=== PATIENT | female | born 2005 | race Two or more races ===

== ENCOUNTER 2024-02-27 01:42 | Emergency (ER) | payer MEDICAID, SELFPAY ==
[2024-02-27 06:10] LABS: Appearance Urine Clear; Color Urine Yellow; Glucose Urine UA Negative (Negative); Leukocyte Esterase Urine Negative (Negative); Nitrite Urine Negative (Negative); PH 7.5 (5.0-9.0); Specific Gravity - Urine >= 1.030 (1.005-1.025); UPreg QC Valid YES; Urine Blood Negative (Negative); Urine Ketones Trace mg/dL (Negative); Urine Pregnancy NEGATIVE (NEGATIVE); Urine Protein Negative (Neg-Trace)
== END 2024-02-27 03:54 | disposition home or self-care (01) ==
PROVIDERS: Emergency Provider Emergency Medicine
DX: R11.2 Nausea with vomiting, unspecified (principal); Z79.899 Other long term (current) drug therapy
CPT/HCPCS: 81003; 81025; 99283

== ENCOUNTER 2024-05-25 02:17 | Emergency (ER) | payer MEDICAID, SELFPAY ==
[2024-05-25] VITALS (7 sets, daily range): BP systolic 111–128; BP diastolic 55–76; PULSE 111–116; RESP 16–24; TEMP 36.4–36.8; O2SAT 93–97; BMI 47.5
--- NOTE | 2024-05-25 | ECG_ITS ---
Test Reason : CHEST PAIN Blood Pressure : / mmHG Vent. Rate : 094 BPM Atrial Rate : 094 BPM P-R Int : 150 ms QRS Dur : 080 ms QT Int : 348 ms P-R-T Axes : 057 025 026 degrees QTc Int : 435 ms Normal sinus rhythm Normal ECG No previous ECGs available Referred By: Generic ED Physician Electronically Signed By:Sam Caicedo
--- NOTE | 2024-05-25 02:39 | ED_ITS ---
HPI - SOB/Dyspnea General Chief Complaint: Upper Respiratory Symptoms Stated Complaint: SOB, Chest pain Time Seen by Provider: 05/25/24 02:31 Source: patient Mode of arrival: ambulatory Limitations: no limitations History of Present Illness ED Provider: Dr. Madyson Quiles HPI Narrative: Patient comes to the emergency room complaining of wheezing, shortness of breath, cough and congestion for about a week. Patient states that a week ago she went to [facility] with an asthma exacerbation, they prescribed her an albuterol pump . Patient states that she has not taking any steroids, unclear if they were prescribed? . Patient states that yesterday she had a faintly positive urine test, patient states that she is 26 days late for her menstrual. If patient is , this would be her 1st . Related Data Previous Rx's ?Medication ?Instructions ?Recorded albuterol sulfate 90 mcg/actuation 2 puff inhalation Q4-6H PRN 05/25/24 aerosol inhaler shortness of breath or wheezing #8.5 grams prednisone 50 mg tablet 50 mg PO DAILY #5 tabs 05/25/24 Allergies Allergy/AdvReac Type Severity Reaction Status Date / Time No Known Allergies Allergy Verified 05/25/24 02:23 Review of Systems 2 Review of Systems: Constitutional : No Weight loss, No Fever, No Chills, No Night Sweats, No Fatigue, No Malaise ENT/Mouth : No Hearing loss, No Ear Pain, No Nasal Congestion, No Sinus Pain, No Hoarseness, No sore throat, No Rhinorrhea, No Swallowing Difficulty Eyes: No Eye Pain, No Swelling, No Redness, No Foreign Body, No Discharge, No Vision Changes Cardiovascular : No Chest Pain, No SOB, No Dyspnea on Exertion, No Orthopnea, No Edema, No Palpitations Respiratory : Complaining of cough, wheezing, shortness of breath Gastrointestinal : No Nausea, No Vomiting, No Diarrhea, No Constipation, No abdominal Pain, No Hematochezia, No Melena Genitourinary : no irregular bleeding, No Dysuria, No Urinary Frequency, No Hematuria, No Urinary Incontinence, No Urgency, No Flank Pain, No Urinary Flow Changes, No Hesitancy Musculoskeletal : No joint pain, No Myalgias, No Joint Swelling Skin : No Skin Lesions, No rash Neuro : No Weakness, No Numbness, No Paresthesias, No Loss of Consciousness, No Dizziness, No Headache Psych : No Anxiety/Panic, No Depression, No SI/HI/AH/VH, No Social Issues, Heme/Lymph: No Bruising, No Bleeding,No Lymphadenopathy Endocrine : No Polyuria, No Polydipsia, No Temperature Intolerance [facility] Past Medical History Medical History (Updated 05/25/24 @ 06:16 by Madyson Quiles MD) Asthma Social History Social History Smoked in Last 30 Days: No Use of substances other than those prescribed or required for medical reasons: No Advance Directives: No Advance Directives Information Provided: Yes Do you have a plan to hurt others: No Plan Physical Exam 2 Vital Signs: Vital Signs: Last Vital Signs Temp 98.2 F 05/25/24 04:31 Pulse 111 H 05/25/24 05:09 Resp 20 05/25/24 05:09 BP 111/55 L 05/25/24 04:31 Pulse Ox 95 05/25/24 04:31 O2 Del Method Room Air 05/25/24 04:31 BMI result Body Mass Index 47.5 Const: Other: Appearance: Alert. Oriented X3. No acute distress. Eyes: Pupils equal, round and reactive to light. ENT: Pharynx normal. Neck: Normal inspection. Neck supple. No lymph nodes noted. No crepitus CVS: Normal heart rate and rhythm. Pulses normal. Normal S1 and S2 Respiratory: Speaking in 2-3 word sentences, bilateral wheezing, tachypneic, decreased air movement, oxygen saturation 95% on room air Abdomen: Soft and nontender. No rigidity. No distention. Skin: Skin warm and dry. Normal skin color. Normal skin turgor. Extremities: No lower extremity edema. No Lacerations. No Rash Neuro: Oriented X 3. No motor deficit. No sensory deficit. Moving all extremities. No slurred speech. CN 2 through 12 grossly intact Psych: calm, cooperative, normal affect Course Course Course Narrative: Patient receiving a nebulization treatment, IV Solu-Medrol and magnesium All of patient's labs pending Medications Administered Discontinued Medications Generic Name Dose Route Start Last Admin Trade Name Freq PRN Reason Stop Dose Admin Albuterol Sulfate 7.5 mg/ 10 mg 05/25/24 02:45 05/25/24 02:50 Albuterol Sulfate 2.5 mg INHALE 05/25/24 02:46 10 mg ONCE ONE Administration Albuterol Sulfate 5 mg/ 7.5 mg 05/25/24 05:03 05/25/24 05:09 Albuterol Sulfate 2.5 mg INHALE 05/25/24 05:04 7.5 mg ONCE ONE Administration Magnesium Sulfate 2 gm in 50 mls @ 25 mls/hr 05/25/24 02:38 05/25/24 03:28 Magnesium Sulfate/H2o IV 05/25/24 04:37 Infused ONCE ONE Infusion Methylprednisolone Sodium Succinate 125 mg 05/25/24 02:38 05/25/24 02:57 Methylprednisolone Sod Succ 125 Mg/2 Ml Vial IVPUSH 05/25/24 02:39 125 mg ONCE ONE Administration Medical Decision Making Medical Decision Making [facility] Narrative: My interpretation of labs: Patient's white blood cell count 11.8, patient noted to be anemic. Patient will follow-up with PCP. Chemistry within normal limits. Also, I discussed with the patient that her beta hCG quant was negative. Serology negative for influenza RSV and COVID Patient was ambulated around the emergency room, oxygen saturation minimum 93%, then improved to 98% at rest. Patient states that she feels well to go home. On physical exam, no longer wheezing. Differential Diagnosis Differential Diagnoses: The differential diagnosis associated with the presentation includes Admission/Observation Consideration of admission/observation: Escalation of care including admission/observation considered (Given patient's initial presentation, observation was considered) Lab Data [facility] Lab Attestation statement: I reviewed the patient's lab results. 05/25/24 02:54 05/25/24 02:54 Labs: Lab Results 05/25/24 05/25/24 Range/Units 02:54 02:57 WBC 11.8 H (4.8-10.8) X10*3/uL RBC 4.92 (4.20-5.50) X10*6/uL Hgb 9.2 L (12.0-16.0) g/dl Hct 31.2 L (37.0-47.0) % MCV 63.4 L (80.0-98.0) fL MCH 18.7 L (27.0-33.0) pg MCHC 29.5 L (31.0-35.0) g/dl RDW 20.6 H (11.0-16.0) % Plt Count 425 H (160-400) X10*3/uL MPV 9.8 (9.4-12.3) fL Immature Gran % (Auto) 0.6 H (0.0-0.4) % Neut % (Auto) 61.1 (45-73) % Lymph % (Auto) 22.8 (20-40) % [place] % (Auto) 7.6 (2-11) % Eos % (Auto) 7.4 H (0-4) % Baso % (Auto) 0.5 (0-2) % Lymph # (Auto) 2.7 (1.2-4.9) X10*3/uL [place] # (Auto) 0.9 (0.1-1.2) X10*3/uL Eos # (Auto) 0.9 H (0.0-0.4) X10*3/uL Baso # (Auto) 0.1 (0.0-0.2) X10*3/uL Abs Immat Gran (auto) 0.07 H (0.00-0.03) X10*3/uL Absolute Neuts (auto) 7.2 (2.0-8.3) x10*3/uL Absolute Nucleated RBC 0.000 (0.0-0.012) X10*3/uL Nucleated RBC % (auto) 0.0 (0.0-0.2) /100WBC Sodium 139 (135-145) mmol/L Potassium 4.9 (3.3-5.1) mmol/L Chloride 104 (96-108) mmol/L Carbon Dioxide 25 (22-29) mmol/L Anion Gap 15 (12-20) BUN 10 (9-16) mg/dL Creatinine 0.76 (0.5-1.4) mg/dL Estim Creat Clear Calc 160.3 Estimated GFR > 60 Random Glucose 112 (60-115) mg/dL Calcium 9.0 (8.4-10.2) mg/dL Beta HCG, Quant < 2 mIU/mL Influenza Type A (PCR) NEGATIVE (Negative) Influenza Type B (PCR) NEGATIVE (Negative) RSV RNA Qual (PCR) NEGATIVE (Negative) SARS-CoV-2 RNA (RT-PCR) NEGATIVE (Negative) Discharge Plan Discharge Clinical Impression: Asthma, Bronchitis Patient Disposition: Home, Self-Care Instructions: Asthma (ED) Additional Instructions: Please follow-up with your primary care physician tomorrow. If you have any worsening or new symptoms, please return to the emergency room or call 911 Prescriptions: New prednisone 50 mg tablet 50 mg PO DAILY Qty: 5 0RF albuterol sulfate 90 mcg/actuation HFA aerosol inhaler 2 puff inhalation Q4-6H PRN (Reason: shortness of breath or wheezing) Qty: 8.5 0RF Print Language: Surinamese
[2024-05-25] MEDS: Albuterol Sulfate 7.5 MG, Albuterol Sulfate (0.083%) 2.5 MG 10 MG INHALE (02:50)
[2024-05-25] MEDS: methylPREDNISolone Sod Succ 125 MG/2 ML VIAL IVPUSH (02:57)
[2024-05-25] MEDS: Magnesium Sulfate/H2O 2 GM/50 ML PIGGYBACK IV (02:57)
[2024-05-25 02:58] LABS: MANUAL DIFF FLAG NO
[2024-05-25 02:59] LABS: Basophils Absolute Auto 0.1 X10*3/uL (0.0-0.2); Basophils Percent Auto 0.5 % (0-2); Eosinophils Absolute Auto 0.9 X10*3/uL (0.0-0.4); Eosinophils Percent Auto 7.4 % (0-4); Hematocrit 31.2 % (37.0-47.0); Hemoglobin 9.2 g/dl (12.0-16.0); Imm Gran Abs Auto 0.07 X10*3/uL (0.00-0.03); Imm Gran Pct Auto 0.6 % (0.0-0.4); Lymphocytes Absolute Auto 2.7 X10*3/uL (1.2-4.9); Lymphocytes Percent Auto 22.8 % (20-40); Mean Corpuscular HGB Conc 29.5 g/dl (31.0-35.0); Mean Corpuscular Hemoglobin 18.7 pg (27.0-33.0); Mean Platelet Volume 9.8 fL (9.4-12.3); Monocytes Absolute Auto 0.9 X10*3/uL (0.1-1.2); Monocytes Percent Auto 7.6 % (2-11); Neutrophils Absolute Auto 7.2 x10*3/uL (2.0-8.3); Neutrophils Percent Auto 61.1 % (45-73); Platelet Count 425 X10*3/uL (160-400); Red Blood Count 4.92 X10*6/uL (4.20-5.50); Red Cell Distribution Width 20.6 % (11.0-16.0); White Blood Count 11.8 X10*3/uL (4.8-10.8)
[2024-05-25 03:00] LABS: Mean Corpuscular Volume 63.4 fL (80.0-98.0)
[2024-05-25 03:18] LABS: Anion Gap 15 (12-20); Blood Urea Nitrogen 10 mg/dL (9-16); Carbon Dioxide 25 mmol/L (22-29); Chloride 104 mmol/L (96-108); Creatinine Clr Calc Pharmacy 160.3; Estimated Glomerular Filt Rate > 60; Glucose Random 112 mg/dL (60-115); Potassium 4.9 mmol/L (3.3-5.1); Sodium 139 mmol/L (135-145)
[2024-05-25 03:20] LABS: HCG Quantitative < 2 mIU/mL
[2024-05-25 03:39] LABS: Influenza A PCR NEGATIVE (Negative); Influenza B PCR NEGATIVE (Negative); Resp Syncy Virus RNA Qual PCR NEGATIVE (Negative); SARS COV2 PCR INHOUSE NEGATIVE (Negative)
[2024-05-25] MEDS: Albuterol Sulfate 5 MG, Albuterol Sulfate (0.083%) 2.5 MG 7.5 MG INHALE (05:09)
--- NOTE | 2024-05-25 06:10 | PC.NURSE ---
ambulation trial completed, remained 93% or greater for oxygenation. Relayed to
== END 2024-05-25 06:24 | disposition home or self-care (01) ==
PROVIDERS: Emergency Provider Emergency Medicine
DX: J45.909 Unspecified asthma, uncomplicated (principal); Z03.818 Encounter for observation for suspected exposure to other biological agents ruled out; R06.02 Shortness of breath
CPT/HCPCS: 0241U; 36415; 80048; 84702; 85025; 93005; 94640; 96365; 96375; 99285; J2919; J3475

== ENCOUNTER → 2024-05-25 02:27 | Outpatient (BNV) | payer MEDICAID, SELFPAY | PROVIDERS: Emergency Provider Emergency Medicine; Visit Provider Internal Medicine Cardiovascular Disease | DX: R07.9 Chest pain, unspecified (principal) | CPT/HCPCS: 93010 ==

== ENCOUNTER 2024-06-03 23:16 | Emergency (ER) | payer MEDICAID, SELFPAY ==
--- NOTE | ~2024-06-03 | XR_ITS ---
CLINICAL HISTORY: sob 2 view chest x-ray Comparison: None Findings: The lungs are clear. Heart size is normal. No acute fracture. IMPRESSION: 1. No acute findings. This document has been electronically signed by: Los Castro MD on 06/04/2024 00:02:32
[2024-06-03 23:19] VITALS: BP 130/76; PULSE 111; RESP 20; TEMP 36.4; O2SAT 95; BMI 48.8
[2024-06-03 23:48] LABS: Basophils Absolute Auto 0.1 X10*3/uL (0.0-0.2); Basophils Percent Auto 0.5 % (0-2); Eosinophils Absolute Auto 1.2 X10*3/uL (0.0-0.4); Eosinophils Percent Auto 7.6 % (0-4); Hematocrit 34.1 % (37.0-47.0); Hemoglobin 10.2 g/dl (12.0-16.0); Imm Gran Abs Auto 0.09 X10*3/uL (0.00-0.03); Imm Gran Pct Auto 0.6 % (0.0-0.4); Lymphocytes Absolute Auto 4.1 X10*3/uL (1.2-4.9); Lymphocytes Percent Auto 25.3 % (20-40); MANUAL DIFF FLAG NO; Mean Corpuscular HGB Conc 29.9 g/dl (31.0-35.0); Mean Corpuscular Hemoglobin 19.1 pg (27.0-33.0); Mean Platelet Volume 9.4 fL (9.4-12.3); Monocytes Absolute Auto 1.1 X10*3/uL (0.1-1.2); Neutrophils Absolute Auto 9.5 x10*3/uL (2.0-8.3); Platelet Count 450 X10*3/uL (160-400); Red Blood Count 5.33 X10*6/uL (4.20-5.50); Red Cell Distribution Width 21.4 % (11.0-16.0); White Blood Count 16.1 X10*3/uL (4.8-10.8)
--- NOTE | 2024-06-04 00:02 | ED_ITS ---
HPI - General Adult General Chief complaint: Dyspnea Stated complaint: diff of breathing Time Seen by Provider: 06/03/24 23:57 Source: patient and family Mode of arrival: ambulatory Limitations: no limitations History of Present Illness ED Provider: DR. Sarmiento HPI narrative: A 18-year-old female walked into the emergency department for evaluation of difficulty breathing and a productive cough with dark sputum, no sick contacts, no sneezing, no body ache, no history of smoking or drug use, no recent travel, no lower extremity swelling or tenderness, no fever. Patient LMP was 35 days ago patient usually gets her menstruation regularly concern of being . Related Data Previous Rx's ?Medication ?Instructions ?Recorded albuterol sulfate 90 mcg/actuation 2 puff inhalation Q4-6H PRN 05/25/24 aerosol inhaler shortness of breath or wheezing #8.5 grams prednisone 50 mg tablet 50 mg PO DAILY #5 tabs 05/25/24 albuterol sulfate 90 mcg/actuation 2 inh inhalation Q4-6H PRN 06/04/24 breath activated powder inhaler shortness of breath or wheezing #1 ea prednisone 20 mg tablet 20 mg PO BID #10 tabs 06/04/24 Allergies Allergy/AdvReac Type Severity Reaction Status Date / Time No Known Allergies Allergy Verified 06/03/24 23:20 Review of Systems 2 Review of Systems: All other systems are reviewed and are negative Constitutional: Reports as per HPI and Reports no additional constitutional complaints Eyes: Reports as per HPI and Reports no additional eye complaints Reports system reviewed and no additional complaints, except as documented Cardiovascular: Reports as per HPI and Reports no additional cardiovascular complaints Respiratory: Reports as per HPI and Reports no additional respiratory complaints Gastrointestinal: Reports as per HPI and Reports no additional gastrointestinal complaints Genitourinary: Reports no additional female genitourinary complaints Musculoskeletal: Reports no additional musculoskeletal complaints Skin/Breast: Reports system reviewed and no additional complaints, except as docu Psychiatric: Reports no additional psychiatric complaints Endocrine: Reports no additional endocrine complaints Hematologic/Lymphatic: Reports no additional hematologic/lymphatic complaints Allergic/Immunologic: Reports no additional allergic/immunologic complaints Reports system reviewed and no additional complaints, except as documented and Reports Abnormal speech present PMFSH Past Medical History Medical History Asthma Physical Exam ED Vital Signs: Vital Signs - 24 hr 06/03/24 23:19 Temperature 97.6 F Pulse Rate 111 H Respiratory Rate 20 Blood Pressure 130/76 Pulse Oximetry 95 Oxygen Delivery Method Room Air BMI result Body Mass Index 48.8 Vital signs have been reviewed and appear to be correct. Blood pressure elevated. Heart rate elevated, Respiratory rate normal. Temperature normal. Oxygen saturation normal. Appearance: Alert. Oriented X3. No acute distress. Head: Normal external exam. Normocephalic. Atraumatic. No Stanton signs noted. No raccoon eyes noted Eyes: PERRLA. EOMI. Conjunctiva and sclera normal. Eyelids normal. ENT: TM's Normal. Pharynx normal. Uvula midline. Moist mucous membranes. No trismus noted. No drooling noted. No muffled voice noted. Neck: Normal inspection. Neck supple. FROM. No adenopathy. Thyroid Normal. No meningeal signs. No neck mass noted. CVS: Normal heart rate and rhythm. Heart sound normal. No murmurs noted. Pulses normal throughout. Respiratory: No respiratory distress. Painless inspiration. Diffuse bilateral expiratory wheezing with prolonged expiration and decrease air entry bilaterally. Chest nontender. No accessory muscle usage noted or decreased air movement noted. Abdomen: Soft and nontender. Bowel sounds normal in all 4 quadrants. No distention noted. No organomegaly noted. No visible injury noted. Back: No CVA tenderness. Full range of motion noted. Skin: Skin warm and dry. Normal skin color. Normal skin turgor. No rashes/lesions/lacerations noted. Extremities: No lower extremity edema. Extremities exhibit normal range of motion. Extremities nontender. Neuro: Oriented X 3. Cranial nerve exam: II-XII are grossly intact No motor deficit. No sensory deficit. Reflexes normal. Course Reevaluation(s) Reevaluation #1: Recently seen in the emergency department for asthma and patient was placed on prednisone which explain leukocytosis today. Asthma exacerbation. Negative Time: 01:00 Medical Decision Making Differential Diagnosis Differential Diagnoses: The differential diagnosis associated with the presentation includes (Viral upper respiratory infection, pneumonia, pneumothorax, pleural effusion, asthma exacerbation, .) Admission/Observation Consideration of admission/observation: Escalation of care including admission/observation considered Lab Data [facility]DM Lab Attestation statement: I reviewed the patient's lab results. 06/03/24 23:28 06/03/24 23:28 Labs: Lab Results 06/03/24 Range/Units 23:28 WBC 16.1 H (4.8-10.8) X10*3/uL RBC 5.33 (4.20-5.50) X10*6/uL Hgb 10.2 L (12.0-16.0) g/dl Hct 34.1 L (37.0-47.0) % MCV 64.0 L (80.0-98.0) fL MCH 19.1 L (27.0-33.0) pg MCHC 29.9 L (31.0-35.0) g/dl RDW 21.4 H (11.0-16.0) % Plt Count 450 H (160-400) X10*3/uL MPV 9.4 (9.4-12.3) fL Immature Gran % (Auto) 0.6 H (0.0-0.4) % Neut % (Auto) 59.0 (45-73) % Lymph % (Auto) 25.3 (20-40) % [place] % (Auto) 7.0 (2-11) % Eos % (Auto) 7.6 H (0-4) % Baso % (Auto) 0.5 (0-2) % Lymph # (Auto) 4.1 (1.2-4.9) X10*3/uL [place] # (Auto) 1.1 (0.1-1.2) X10*3/uL Eos # (Auto) 1.2 H (0.0-0.4) X10*3/uL Baso # (Auto) 0.1 (0.0-0.2) X10*3/uL Abs Immat Gran (auto) 0.09 H (0.00-0.03) X10*3/uL Absolute Neuts (auto) 9.5 H (2.0-8.3) x10*3/uL Absolute Nucleated RBC 0.000 (0.0-0.012) X10*3/uL Nucleated RBC % (auto) 0.0 (0.0-0.2) /100WBC Independent Interpretation I performed an independent interpretation of an: Plain X-Ray (Chest: No acute pathology.) Radiology Impression Discussion of test interpretation with radiology: I have reviewed the radiologist's reading. Chronic Conditions Patient?s care impacted by: Other (Asthma) Discharge Plan Discharge Clinical Impression: Asthma with exacerbation Patient Disposition: Still a Patient Instructions: Asthma (ED) Prescriptions: New prednisone 20 mg tablet 20 mg PO BID Qty: 10 0RF albuterol sulfate 90 mcg/actuation aerosol powdr breath activated 2 inh inhalation Q4-6H PRN (Reason: shortness of breath or wheezing) Qty: 1 0RF No Action prednisone 50 mg tablet 50 mg PO DAILY Qty: 5 0RF albuterol sulfate 90 mcg/actuation HFA aerosol inhaler 2 puff inhalation Q4-6H PRN (Reason: shortness of breath or wheezing) Qty: 8.5 0RF Print Language: Khmer
[2024-06-04 00:10] LABS: Alanine Aminotransferase 16 U/L (0-31); Albumin Level 4.1 g/dL (3.5-5.0); Alkaline Phosphatase 90 U/L (39-117); Anion Gap 12 (12-20); Aspartate Amino Transferase 15 U/L (5-31); Bilirubin Total 0.2 mg/dL (0.0-1.0); Blood Urea Nitrogen 10 mg/dL (9-16); Calcium 8.7 mg/dL (8.4-10.2); Carbon Dioxide 26 mmol/L (22-29); Chloride 106 mmol/L (96-108); Creatinine Clr Calc Pharmacy 184.9; Estimated Glomerular Filt Rate > 60; Glucose Random 111 mg/dL (60-115); HCG Quantitative < 2 mIU/mL; Potassium 3.5 mmol/L (3.3-5.1); Sodium 140 mmol/L (135-145); Total Protein 7.3 g/dL (6.5-8.0)
[2024-06-04] MEDS: predniSONE 20 MG TABLET 60 MG PO (00:13)
[2024-06-04] MEDS: Albuterol Sulfate 7.5 MG, Albuterol Sulfate (0.083%) 2.5 MG 10 MG INHALE ×2 (00:18→01:52)
[2024-06-04 00:20] VITALS: PULSE 107; RESP 20; O2SAT 96
[2024-06-04 00:24] VITALS: BP 127/83; PULSE 107; RESP 30; TEMP 36.7; O2SAT 94
[2024-06-04 01:11] LABS: Influenza A PCR NEGATIVE (Negative); Influenza B PCR NEGATIVE (Negative); Resp Syncy Virus RNA Qual PCR NEGATIVE (Negative); SARS COV2 PCR INHOUSE NEGATIVE (Negative)
[2024-06-04 02:16] VITALS: BP 127/80; PULSE 112; RESP 18; TEMP 36.7; O2SAT 96
== END 2024-06-04 02:18 | disposition home or self-care (01) ==
PROVIDERS: Emergency Provider Emergency Medicine
DX: J45.901 Unspecified asthma with (acute) exacerbation (principal); R06.02 Shortness of breath; Z03.818 Encounter for observation for suspected exposure to other biological agents ruled out; Z79.899 Other long term (current) drug therapy
CPT/HCPCS: 0241U; 36415; 71046; 80053; 84702; 85025; 94640; 99284

== ENCOUNTER → 2024-06-03 23:30 | Outpatient (BNV) | payer MEDICAID, SELFPAY | PROVIDERS: Emergency Provider Emergency Medicine; Visit Provider Radiology Diagnostic Radiology | DX: R06.02 Shortness of breath (principal) | CPT/HCPCS: 71046 ==

== ENCOUNTER 2024-06-27 15:39 | Emergency (ER) | payer MEDICAID, SELFPAY ==
--- NOTE | ~2024-06-27 | XR_ITS ---
CLINICAL HISTORY: wheezing, chest pain 2 view chest x-ray Comparison: CR - XR CHEST 2V - 06/03/24 23:44 EST Findings: The lungs are clear. Heart size is normal. No acute fracture. IMPRESSION: 1. No acute findings. This document has been electronically signed by: Sofia Herrera MD on 06/27/2024 16:56:37
[2024-06-27 16:04] VITALS: BP 124/79; PULSE 107; RESP 20; TEMP 36.7; O2SAT 94; BMI 48.3
--- NOTE | 2024-06-27 16:07 | ED_ITS ---
HPI - General Adult General Chief complaint: Dyspnea Stated complaint: tight chest/asthma/sob Time Seen by Provider: 06/27/24 23:45 Source: patient Mode of arrival: ambulatory Limitations: no limitations History of Present Illness ED Provider: Dr. Ovi Blackwell HPI narrative: 18-year-old female with a history of asthma who presents emergency department for evaluation of chest tightness, shortness of breath, productive cough, wheezing x2 weeks with symptoms getting worse over the past 1-2 days. The patient states she was a cough which is productive of thick yellow sputum. She also states she was feeling short of breath and has been having significant wheezing. She has been using her inhaler every 1-2 hours with no relief for symptoms. She states that she also has tightness in her chest which is worse with coughing and with breathing. The patient did see her PCP and was prescribed a preventative inhaler (possibly Advair). However she states that she was given this prescription before, lost her Advair and the pharmacist told her that it was too soon did get this medication refilled and the patient could not afford the cts-yx-todrol cost for this medicine. Related Data Previous Rx's ?Medication ?Instructions ?Recorded albuterol sulfate 90 mcg/actuation 2 puff inhalation Q4-6H PRN 05/25/24 aerosol inhaler shortness of breath or wheezing #8.5 grams prednisone 50 mg tablet 50 mg PO DAILY #5 tabs 05/25/24 albuterol sulfate 90 mcg/actuation 2 inh inhalation Q4-6H PRN 06/04/24 breath activated powder inhaler shortness of breath or wheezing #1 ea prednisone 20 mg tablet 20 mg PO BID #10 tabs 06/04/24 doxycycline hyclate 100 mg tablet 100 mg PO Q12H 5 days #10 tabs 06/28/24 prednisone 20 mg tablet 60 mg (3 x 20 mg) PO DAILY 5 days 06/28/24 #15 tabs Allergies Allergy/AdvReac Type Severity Reaction Status Date / Time No Known Allergies Allergy Verified 06/27/24 16:05 Review of Systems 2 Review of Systems: Yes all other systems are reviewed and are negative PMFSH Past Medical History Medical History Asthma Social History Social History Alcohol intake: never Do you have a plan to hurt others: No Plan Physical Exam ED Vital Signs: Vital Signs - 24 hr 06/27/24 16:04 06/27/24 16:59 06/27/24 22:46 Temperature 98.0 F 98.2 F Pulse Rate 107 H 135 H 107 H Respiratory Rate 20 26 H 20 Blood Pressure 124/79 135/75 Pulse Oximetry 94 96 Oxygen Delivery Method Room Air Room Air 06/27/24 23:06 Temperature Pulse Rate 112 H Respiratory Rate 22 H Blood Pressure Pulse Oximetry Oxygen Delivery Method BMI result Body Mass Index 48.3 Vital signs did reveal an elevated heart rate otherwise unremarkable Exam: General: Awake, alert in no distress Head: Normocephalic, atraumatic EENT: PERRL, Lids normal, sclera normal, conjunctiva normal, nose normal , ears normal, throat without erythema or exudates Neck: Supple, no adenopathy Lung: breath sounds symmetric, wheezing with cough at the end of forced expiration. No rales, no rhonchi Chest: symmetric movement, nontender Heart: regular rate and rhythm, normal S1, S2 no murmurs or rubs Abdomen: soft, non-tender, nondistended, normal bowel sounds Psych: Pleasant, cooperative Course Course Course Narrative: This is a Rapid Medical Examination (RME) performed by Delia Galindo PA-C in triage. Full HPI, ROS, assessment and treatment plan per primary provider in the Main ED. 18 yo female hx asthma here for eval of SOB, chest tightness, cough x months. seen at [facility] for this multiple times, prescribed albuterol solution for her neb however does not have a neb machine at home. +scatted expiratory wheezes. no respiratory distress. Plan: basic labs, viral swabs, cxr, ed bronch protocol Medications Administered Discontinued Medications Generic Name Dose Route Start Last Admin Trade Name Freq PRN Reason Stop Dose Admin Levalbuterol HCl 3.75 mg/ 0 mg 06/27/24 16:52 06/27/24 16:57 Ipratropium [place] 0.5 mg INHALE 06/27/24 16:53 1 dose ONCE ONE Administration Albuterol Sulfate 2.5 mg/ 0 mg 06/27/24 23:02 06/27/24 23:06 Albuterol/Ipratropium 3 ml INHALE 06/27/24 23:03 1 dose ONCE ONE Administration Medical Decision Making Medical Decision Making [facility] Narrative: 18-year-old female with a history of asthma who presents emergency department for evaluation of chest tightness, shortness of breath, productive cough, wheezing x2 weeks with symptoms getting worse over the past 1-2 days. Patient has been using your inhaler for which is productive of thick yellow sputum. Vital signs revealed an elevated heart rate. Exam revealed wheezing and cough at the end of forced expiration Differential diagnosis: ?Includes but is not limited to asthma exacerbation, acute bronchitis, pneumonia, myocardial infarction, myocardial ischemia, electrolyte abnormalities, anemia Course: 00:22 My interpretation patient's laboratory evaluation is as follows: Elevated WBC 07587. Microcytic anemia with an H&H of 10 and 33 which is chronic. The patient was aware that she needs to take iron. Elevated glucose 119. Troponin was below detectable limits. Serum test to his negative. COVID-19, influenza and RSV were negative. Chest x-ray revealed no evidence of pneumonia. Patient was presentation is consistent with an asthma exacerbation most likely secondary to large inflammatory component and possibly bronchitis. I did discuss this with the patient. The patient 60 mg once a day for 5 days and doxycycline 100 mg q.12 hours x5 days. She was given 1st dose of these medications here in the emergency department. I told her that she should contact her PCP to see if she can get her Advair prescription covered through her insurance. Patient was also given a return to work note to take several it was a flare-up. She was given printed and verbal instructions and discharged home Admission/Observation Consideration of admission/observation: Escalation of care including admission/observation considered (Yes) Lab Data [facility] Lab Attestation statement: I reviewed the patient's lab results. 06/27/24 19:42 06/27/24 19:42 Labs: Lab Results 06/27/24 06/27/24 Range/Units 16:45 19:42 WBC 15.5 H (4.8-10.8) X10*3/uL RBC 5.19 (4.20-5.50) X10*6/uL Hgb 10.0 L (12.0-16.0) g/dl Hct 33.3 L (37.0-47.0) % MCV 64.2 L (80.0-98.0) fL MCH 19.3 L (27.0-33.0) pg MCHC 30.0 L (31.0-35.0) g/dl RDW 22.6 H (11.0-16.0) % Plt Count 458 H (160-400) X10*3/uL MPV 10.0 (9.4-12.3) fL Immature Gran % (Auto) 0.6 H (0.0-0.4) % Neut % (Auto) 68.3 (45-73) % Lymph % (Auto) 18.4 L (20-40) % [place] % (Auto) 5.1 (2-11) % Eos % (Auto) 7.2 H (0-4) % Baso % (Auto) 0.4 (0-2) % Lymph # (Auto) 2.9 (1.2-4.9) X10*3/uL [place] # (Auto) 0.8 (0.1-1.2) X10*3/uL Eos # (Auto) 1.1 H (0.0-0.4) X10*3/uL Baso # (Auto) 0.1 (0.0-0.2) X10*3/uL Abs Immat Gran (auto) 0.09 H (0.00-0.03) X10*3/uL Absolute Neuts (auto) 10.6 H (2.0-8.3) x10*3/uL Absolute Nucleated RBC 0.000 (0.0-0.012) X10*3/uL Nucleated RBC % (auto) 0.0 (0.0-0.2) /100WBC Sodium 139 (135-145) mmol/L Potassium 3.6 (3.3-5.1) mmol/L Chloride 107 (96-108) mmol/L Carbon Dioxide 22 (22-29) mmol/L Anion Gap 14 (12-20) BUN 14 (9-16) mg/dL Creatinine 0.69 (0.5-1.4) mg/dL Estim Creat Clear Calc 178.4 Estimated GFR > 60 Random Glucose 119 H (60-115) mg/dL Calcium 8.8 (8.4-10.2) mg/dL Magnesium 1.7 (1.6-2.6) mg/dL Total Bilirubin 0.2 (0.0-1.0) mg/dL AST 19 (5-31) U/L ALT 17 (0-31) U/L Alkaline Phosphatase 83 (39-117) U/L Troponin I High Sens < 2.7 (<3.5-17.0) ng/L Total Protein 7.8 (6.5-8.0) g/dL Albumin 4.2 (3.5-5.0) g/dL Beta HCG, Quant < 2 mIU/mL Influenza Type A (PCR) NEGATIVE (Negative) Influenza Type B (PCR) NEGATIVE (Negative) RSV RNA Qual (PCR) NEGATIVE (Negative) SARS-CoV-2 RNA (RT-PCR) NEGATIVE (Negative) Independent Interpretation I performed an independent interpretation of an: Plain X-Ray Interpretation: My interpretation of the patient's two view chest x-ray is as follows: No acute disease Radiology Impression Discussion of test interpretation with radiology: I have reviewed the radiologist's reading. Radiologist Impression: 2 view chest x-ray Comparison: CR - XR CHEST 2V - 06/03/24 23:44 EST Findings: The lungs are clear. Heart size is normal. No acute fracture. IMPRESSION: 1. No acute findings. This document has been electronically signed by: Sofia Herrera MD on 06/27/2024 16:56:37 Prescription Management I considered prescription management with: Antibiotic (Doxycycline) and Other (Anti-inflammatory steroids: Prednisone) Chronic Conditions Patient?s care impacted by: Other (As) Discharge Plan Discharge Clinical Impression: Asthma with exacerbation Qualifiers: Asthma severity: unspecified severity Asthma persistence: unspecified Qualified Code(s): J45.901 - Unspecified asthma with (acute) exacerbation Acute bronchitis Qualifiers: Bronchitis organism: other organism Qualified Code(s): J20.8 - Acute bronchitis due to other specified organisms Patient Disposition: Home, Self-Care Instructions: Asthma (ED) Additional Instructions: Your blood work was unremarkable. Your chest x-ray and EKG were unremarkable as well which is reassuring. Your symptoms are consistent with a flare-up of your asthma and bronchitis. Continue using your albuterol inhaler 2 puffs every 4 hours as needed for shortness of breath. Take prednisone 20 mg pills, 3 pills once a day for 5 days. While you ?are taking prednisone, do not take any NSAIDs (Motrin, Advil, ibuprofen, Aleve, naproxen). Take doxycycline 100 mg, 1 pill every 12 hours for 5 days Follow-up with your doctor in 2 days. Please return to the emergency department if your symptoms get worse or if you develop any symptoms that are concerning to you. Please see the return to work note Prescriptions: New prednisone 20 mg tablet 60 mg PO DAILY 5 Days Qty: 15 0RF doxycycline hyclate 100 mg tablet 100 mg PO Q12H 5 Days Qty: 10 0RF No Action prednisone 50 mg tablet 50 mg PO DAILY Qty: 5 0RF albuterol sulfate 90 mcg/actuation HFA aerosol inhaler 2 puff inhalation Q4-6H PRN (Reason: shortness of breath or wheezing) Qty: 8.5 0RF prednisone 20 mg tablet 20 mg PO BID Qty: 10 0RF albuterol sulfate 90 mcg/actuation aerosol powdr breath activated 2 inh inhalation Q4-6H PRN (Reason: shortness of breath or wheezing) Qty: 1 0RF Stand Alone Forms: Work/School Release Print Language: Khmer
[2024-06-27] MEDS: levalbuterol HCL 3.75 MG, Ipratropium Bromide 0.5 MG INHALE (16:57)
[2024-06-27 16:59] VITALS: PULSE 135; RESP 26; O2SAT 94
[2024-06-27 17:25] LABS: Influenza A PCR NEGATIVE (Negative); Influenza B PCR NEGATIVE (Negative); Resp Syncy Virus RNA Qual PCR NEGATIVE (Negative); SARS COV2 PCR INHOUSE NEGATIVE (Negative)
[2024-06-27 19:46] LABS: MANUAL DIFF FLAG NO
[2024-06-27 19:48] LABS: Basophils Absolute Auto 0.1 X10*3/uL (0.0-0.2); Basophils Percent Auto 0.4 % (0-2); Eosinophils Absolute Auto 1.1 X10*3/uL (0.0-0.4); Eosinophils Percent Auto 7.2 % (0-4); Hematocrit 33.3 % (37.0-47.0); Imm Gran Abs Auto 0.09 X10*3/uL (0.00-0.03); Imm Gran Pct Auto 0.6 % (0.0-0.4); Lymphocytes Absolute Auto 2.9 X10*3/uL (1.2-4.9); Lymphocytes Percent Auto 18.4 % (20-40); Mean Corpuscular Hemoglobin 19.3 pg (27.0-33.0); Mean Corpuscular Volume 64.2 fL (80.0-98.0); Monocytes Absolute Auto 0.8 X10*3/uL (0.1-1.2); Monocytes Percent Auto 5.1 % (2-11); Neutrophils Absolute Auto 10.6 x10*3/uL (2.0-8.3); Neutrophils Percent Auto 68.3 % (45-73); Platelet Count 458 X10*3/uL (160-400); Red Blood Count 5.19 X10*6/uL (4.20-5.50); Red Cell Distribution Width 22.6 % (11.0-16.0); White Blood Count 15.5 X10*3/uL (4.8-10.8)
[2024-06-27 20:11] LABS: Alanine Aminotransferase 17 U/L (0-31); Albumin Level 4.2 g/dL (3.5-5.0); Alkaline Phosphatase 83 U/L (39-117); Anion Gap 14 (12-20); Aspartate Amino Transferase 19 U/L (5-31); Bilirubin Total 0.2 mg/dL (0.0-1.0); Blood Urea Nitrogen 14 mg/dL (9-16); Calcium 8.8 mg/dL (8.4-10.2); Carbon Dioxide 22 mmol/L (22-29); Chloride 107 mmol/L (96-108); Creatinine Clr Calc Pharmacy 178.4; Estimated Glomerular Filt Rate > 60; Glucose Random 119 mg/dL (60-115); HCG Quantitative < 2 mIU/mL; Magnesium 1.7 mg/dL (1.6-2.6); Potassium 3.6 mmol/L (3.3-5.1); Sodium 139 mmol/L (135-145); Total Protein 7.8 g/dL (6.5-8.0)
[2024-06-27 20:14] LABS: Troponin-I High Sensitivity < 2.7 ng/L (<3.5-17.0)
[2024-06-27 22:46] VITALS: BP 135/75; PULSE 107; RESP 20; TEMP 36.8; O2SAT 96
[2024-06-27 23:06] VITALS: PULSE 112; RESP 22; O2SAT 100
[2024-06-27] MEDS: Albuterol Sulfate 2.5 MG, Albuterol/Iprat 2.5/0.5MG 3 ML 3 ML INHALE (23:06)
[2024-06-28] MEDS: predniSONE 20 MG TABLET 60 MG PO (00:35)
[2024-06-28] MEDS: Doxycycline Monohydrate 100 MG CAPSULE PO (00:35)
== END 2024-06-28 00:39 | disposition home or self-care (01) ==
PROVIDERS: Physician Assistant Medical; Emergency Provider Emergency Medicine Emergency Medical Services
DX: J45.901 Unspecified asthma with (acute) exacerbation (principal); J20.8 Acute bronchitis due to other specified organisms; R06.02 Shortness of breath; R07.89 Other chest pain; Z03.818 Encounter for observation for suspected exposure to other biological agents ruled out; Z79.899 Other long term (current) drug therapy
CPT/HCPCS: 0241U; 71046; 80053; 83735; 84484; 84702; 85025; 94640; 99284

== ENCOUNTER → 2024-06-27 16:07 | Outpatient (BNV) | payer MEDICAID, SELFPAY | PROVIDERS: Visit Provider Radiology Diagnostic Radiology | DX: R07.9 Chest pain, unspecified (principal); R06.02 Shortness of breath | CPT/HCPCS: 71046 ==

== ENCOUNTER 2024-08-07 02:59 | Emergency (ER) | payer MEDICAID, SELFPAY ==
[2024-08-07 03:02] VITALS: BP 121/77; PULSE 115; RESP 16; TEMP 36.8; O2SAT 98; BMI 49.6
[2024-08-07 03:29] LABS: UPreg QC Valid YES; Urine Pregnancy NEGATIVE (NEGATIVE)
[2024-08-07 03:35] LABS: Appearance Urine Clear; Color Urine Yellow; Glucose Urine UA Negative (Negative); Leukocyte Esterase Urine Negative (Negative); Nitrite Urine Negative (Negative); Specific Gravity - Urine 1.025 (1.005-1.025); Urine Blood Negative (Negative); Urine Ketones 15 mg/dL (Negative); Urine Protein Trace mg/dL (Neg-Trace)
[2024-08-07 03:37] LABS: Hematocrit 33.6 % (37.0-47.0); Hemoglobin 9.9 g/dl (12.0-16.0); Mean Corpuscular HGB Conc 29.5 g/dl (31.0-35.0); Mean Corpuscular Hemoglobin 18.9 pg (27.0-33.0); Mean Corpuscular Volume 64.1 fL (80.0-98.0); Mean Platelet Volume 9.8 fL (9.4-12.3); Platelet Count 387 X10*3/uL (160-400); Red Blood Count 5.24 X10*6/uL (4.20-5.50); Red Cell Distribution Width 20.7 % (11.0-16.0); White Blood Count 9.9 X10*3/uL (4.8-10.8)
--- OUTSIDE RECORDS SUMMARY | 2024-08-07 03:46 | XMS_ITS | Encounter Summary ---
Author Organization [facility] Address [address] [place] [address] Care Team Providers Care Behavioral Sciences Instructor Name Role Phone Unknown Primary Care Provider [phone] Pcp, No [facility] [place] [facility] Primary Care Provider Encounter Details Date Type Department Care Team (Late st Contact Info) Description 08/08/[address] [facility] [address] [place] [phone] Juan Hall MD [address], [place] [id number] Encounter for laboratory testing for COVID-19 virus Social History Tobacco Use Types Packs/Day Years Used Date Smoking Tobacco: Never Assessed Sex and Gender Information Value Date Recorded Sex Assigned at Female 11/06/2022 8:29 PM EDT Gender Identity Female 11/06/2022 8:29 PM EDT Sexual Orientation Heterosexual (straight) 11/06 8:29 PM EDT COVID-19 Exposure Response Date Recorded In the last month, have you been in contact with someone who was confirmed or suspected to have Coronavirus / COVID-19? Yes 08/08/2020 9:18 AM EST documented as of this encounter Plan of Treatment Not on file documented as of this encounter Procedures Procedure Name Priority Date/Time Associated Diagnosis Comments COVID-19 (SARS-COV-2) - SEMA4 LAB Routine 08/08/2020 9:32 AM EST Encounter for laboratory testing for COVID-19 virus [ICD-10-CM] documented in this encounter Results * (ABNORMAL) COVID-19 (SARS-COV-2) (SEMA4) (08/08/2020 9:32 AM EST) COVID-19 RT-PCR DETECTED( A) Not-Detec nayana 08/09/2020 4:29 PM EST [facility] Comment:Interpretation: The viral RNA was detected, consistent with the diagnosis of COVID-19. Correlation with clinical findings is highly recommended.Final report signed by Dennys Prescott, Ph.D., Laboratory DirectorTests performed at [facility] Nasopharyngeal swab / Unknown 08/08/2020 9:32 AM EST 08/08/2020 9:32 AM EST Narrative [facility] - 08/09/2020 4:29 PM EST Performed by [facility] [address] [place] [id number], CLIA# [id number] and [place] License# [id number] Juan Hall MD MICROBIOLOGY - GENER AL ORDERABLES [facility] documented in this encounter Visit Diagnoses Diagnosis Encounter for laboratory testing for COVID-19 virus documented in this encounter Care Teams Behavioral Sciences Instructor Relationship Specialty Start Date End Date Unknown Unknow Provider Address PCP - General 08/08/20 06/29/23 Pcp, No PCP - General General Medicine 06/30/23 09/27/23 Only, [facility] [address] [place] [address] PCP - General 09/28/23 documented as of this encounter
--- OUTSIDE RECORDS SUMMARY | 2024-08-07 03:46 | XMS_ITS | Patient Health Record ---
Author Organization [facility] Address [address] [place] [address] Care Team Providers Care Milieu Manager Name Role Phone Rita Miles Primary Care Provider Roman Lino Unavailable [phone] Ange Sanders Unavailable [phone] Bozena Gandhi Unavailable [phone] Tawana Agustin Unavailable [phone] Chrissy Llanes Unavailable [phone] Allergies Allergen (clinical drug ingredient) Drug/Non Drug Allergy documented on EMR Reaction Allergy Type Onset Date Status SEASONAL ALLERGIES (uncoded) sneezing Allergy Active cephalexin Cephalexin headache Drug Allergy Activ e Results Component Value Reference Range Notes hCG IH Reviewed date:01/14/2024 05:22:40 PM Interpretation:Negative Performing Lab: Notes/Report: Negative Lot Number [id number] Value negative Exp. Date 04/29/2024 Internal procedural control present Comp Metabolic Panel w/eGFR [id number] Reviewed date:07/02/2024 10:19:01 AM Interpretation:Normal Performing Lab:[facility], , [address] [place], [address] Kirstin Valenzuela M.D. Notes/Report: Received Date: [id number] 0; 0; 0; 0; 0; 0; 0; 0 FASTING:YES FASTING: YES GLUCOSE 90 65-99 mg/dL Fasting reference interval UREA NITROGEN (BUN) 12 7-25 mg/dL CREATININE 0.78 0.50-0.96 mg/dL EGFR 111 > OR = 60 mL/min/1.73m2 BUN/CREATININE RATIO SEE NOTE: 6-22 (calc) Not Reported: BUN and Creatinine are within reference range. SODIUM 138 135-146 mmol/L POTASSIUM 4.1 3.5-5.3 mmol/L CHLORIDE 102 98-110 mmol/L CARBON DIOXIDE 25 20-32 mmol/L CALCIUM 9.7 8.6-10.2 mg/dL PROTEIN, TOTAL 7.4 6.1-8.1 g/dL ALBUMIN 4.5 3.6-5.1 g/dL GLOBULIN 2.9 1.9-3.7 g/dL (calc) ALBUMIN/GLOBULIN RATIO 1.6 1.0-2.5 (calc) BILIRUBIN, TOTAL 0.2 0.2-1.2 mg/dL ALKALINE PHOSPHATASE 84 31-125 U/L AST 12 10-30 U/L ALT 12 6-29 U/L DHEA Sulfate 402 Reviewed date:07/02/2024 10:19:01 AM Interpretation:Normal Performing Lab:[facility], , [address] [place], [address] Kirstin Valenzuela M.D. Notes/Report: Received Date: 0; 0; 0; 0; 0; 0; 0; 0 FASTING:YES FASTING: YES DHEA SULFATE 156 44-286 mcg/dL CBC (Includes Diff/Plt) 6399 Reviewed date:07/02/2024 10:19:01 AM Interpretation:Abnormal Performing Lab:[facility], , [address] [place], [address] Kirstin Valenzuela M.D. Notes/Report: Elliptocytes 1 + Received Date: Schistocytes 1 + 0; 0; 0; 0; 0; 0; 0; 0 Anisocytosis 2 + FASTING:YES Microcytosis 2 + Polychromasia 1 + FASTING: YES Hypochromasia 2 + Ovalocytes 1 + WHITE BLOOD CELL COUNT 17.4 3.8-10.8 Thousand/ uL RED BLOOD CELL COUNT 5.80 3.80-5.10 Million/uL HEMOGLOBIN 11.0 11.7-15.5 g/dL HEMATOCRIT 39.2 35.0-45.0 % MCV 67.6 80.0-100.0 fL MCH 19.0 27.0-33.0 pg MCHC 28.1 32.0-36.0 g/dL For adults, a slight decrease in the calculated MCHC value (in the range of 30 to 32 g/dL) is most likely not clinically significant; however, it should be interpreted with caution in correlation with other red cell parameters and the patient's clinical condition. RDW 21.1 11.0-15.0 % PLATELET COUNT 559 140-400 Thousand/uL MPV 10.7 7.5-12.5 fL ABSOLUTE NEUTROPHILS 86474 2161-6609 cells/uL ABSOLUTE LYMPHOCYTES 3289 850-3900 cells/uL ABSOLUTE MONOCYTES 1166 200-950 cells/uL ABSOLUTE EOSINOPHILS 870 15-500 cells/uL ABSOLUTE BASOPHILS 52 0-200 cells/uL NEUTROPHILS 69.1 LYMPHOCYTES 18.9 MONOCYTES 6.7 EOSINOPHILS 5.0 BASOPHILS 0.3 CBC MORPHOLOGY See Note NORMAL TSH w/Free T4 rfx 97890 Reviewed date:07/02/2024 10:19:01 AM Interpretation:Normal Performing Lab:[facility], , [address] [place], [address] Kirstin Valenzuela M.D. Notes/Report: Received Date: 0; 0; 0; 0; 0; 0; 0; 0 FASTING:YES FASTING: YES TSH W/REFLEX TO FT4 0.59 Reference Range > or = 20 Years 0.40-4.50 Ranges First trimester 0.26-2.66 Second trimester 0.55-2.73 Third trimester 0.43-2.91 Hemoglobin A1c 496 Reviewed date:07/02/2024 10:19:01 AM Interpretation:6.3 Performing Lab:[facility], , [address] [place], [address] Kirstin Valenzuela M.D. Notes/Report: Received Date: 0; 0; 0; 0; 0; 0; 0; 0 FASTING:YES FASTING: YES HEMOGLOBIN A1c 6.3 <5.7 % of total Hgb For someone without known diabetes, a hemoglobin A1c value between 5.7% and 6.4% is consistent with prediabetes and should be confirmed with a follow-up test. For someone with known diabetes, a value <7% indicates that their diabetes is well controlled. A1c targets should be individualized based on duration of diabetes, age, comorbid conditions, and other considerations. This assay result is consistent with an increased risk of diabetes. Currently, no consensus exists regarding use of hemoglobin A1c for diagnosis of diabetes for children. FSH and LH 7137 Reviewed date:07/02/2024 10:19:01 AM Interpretation:Normal Performing Lab:[facility], , [address] [place], [address] Kirstin Valenzuela M.D. Notes/Report: Received Date: 0; 0; 0; 0; 0; 0; 0; 0 FASTING:YES FASTING: YES FSH 6.1 Reference Range Follicular Phase 2.5-10.2 Mid-cycle Peak 3.1-17.7 Luteal Phase 1.5- 9.1 Postmenopausal 23.0-116.3 LH 4.8 Reference Range Follicular Phase 1.9-12.5 Mid-Cycle Peak 8.7-76.3 Luteal Phase 0.5-16.9 Postmenopausal 10.0-54.7 Lipid Panel w/refl LDL 21141 Reviewed date:07/02/2024 10:19:01 AM Interpretation:Normal Performing Lab:[facility]1, , [address] [place], [address] Kirstin Valenzuela M.D. Notes/Report: Received Date: 0; 0; 0; 0; 0; 0; 0; 0 FASTING:YES FASTING: YES CHOLESTEROL, TOTAL 161 <200 mg/dL HDL CHOLESTEROL 38 > OR = 50 mg/dL TRIGLYCERIDES 168 <150 mg/dL LDL-CHOLESTEROL 96 Reference range: <100 Desirable range <100 mg/dL for primary prevention; <70 mg/dL for patients with CHD or diabetic patients with > or = 2 CHD risk factors. LDL-C is now calculated using the Ramy-Dana calculation, which is a validated novel method providing better accuracy than the Friedewald equation in the estimation of LDL-C. Ramy LEONE et al. TESSA. 2013;310(19): 6428-3497 (http://education.Cloakroom.miDrive/faq/EZB773) CHOL/HDLC RATIO 4.2 <5.0 (calc) NON HDL CHOLESTEROL 123 <130 mg/dL (calc) For patients with diabetes plus 1 major ASCVD risk factor, treating to a non-HDL-C goal of <100 mg/dL (LDL-C of <70 mg/dL) is considered a therapeutic option. TESTOSTERONE, FREE AND TOTAL , LC/MS/MS 24968 Reviewed date:07/02/2024 10:19:01 AM Interpretation:Normal Performing Lab:[facility], , [address], [place], [place], Lemuel De La Torre M.D.,PhD Notes/Report: Received Date: 0; 0; 0; 0; 0; 0; 0; 0 FASTING:YES FASTING: YES TESTOSTERONE, TOTAL, MS 6 2-45 ng/dL For additional information, please refer to http://education.goBalto/faq/ TotalTestosteroneLCMSMSFAQ 165 (This link is being provided for informational/ educational purposes only.) This test was developed and its analytical performance characteristics have been determined by [employer] [place], [place]. It has not been cleared or approved by the U.S. Food and Drug Administration. This assay has been validated pursuant to the CLIA regulations and is used for clinical purposes. TESTOSTERONE, FREE 1.5 0.1-6.4 pg/mL This test was developed and its analytical performance characteristics have been determined by [facility] [place], [place]. It has not been cleared or approved by the U.S. Food and Drug Administration. This assay has been validated pursuant to the CLIA regulations and is used for clinical purposes. Reason For Referral Reason 18 year old female w ith back pain due to breast size. Diagnosis 1 Hypertrophy of breas t (N62) Referral Organization [facility] Referring Provider First Name Rita Referring Provider Last Name Jd Referring Provider Speciality Family Pra ctice Referred Provider [facility], ysical Therapy Referred Provider Specialty Physical or Occupational Therapy General Notes Hans MAST Brittany 04/24/2024 10:56:35 AM >Faxed to [facility] P:[phone] F:[phone] for scheduling. Their office will contact the patient with the appt. Text sent Referral Priority Routine Reason 18 year old female w ith back pain due to breast size, requesting breast reduction. Diagnosis 1 Hypertrophy of breas t (N62) Referral Organization [facility] Referring Provider First Name Rita Referring Provider Last Name Jd Referring Provider Speciality [facility] Referred Provider Specialty Breast Surge ry General Notes [place] MASTBrittany 04/24/2024 10:40:19 AM >Faxed to [facility] [facility] (please schedule in [place]) P:[phone] F:[phone] for scheduling. Their office will contact the patient with the appt Text sent Referral Priority Routine Reason 18 year old female w ith back pain secondary to lifting at work. Diagnosis 1 Mid back pain (M54.9 ) Referral Organization [facility] Referring Provider First Name Rita Referring Provider Last Name Jd [facility] Referred Provider Chiropractic, Center Referred Provider Specialty Chiropractor General Notes Alfredo Referral Zoie Ochoa 07/27/2024 02:42:17 PM > Faxed Referral, Progress notes, medical summary sent to: [facility] [address] [place] [address], [address] Office would contact Pt to schedule Appointment, Referral letter send via SMS. Referral Priority Routine Medications Medication SIG (Take, Route, Frequency, Duration) Notes Start Date End Date Status Ondansetron 4 MG 1 tablet on the tong ue and allow to dissolve Orally as needed for 30 days 04/21/2024 Active Famotidine 40 MG 1 tablet at bedtime Orally Once a day for 30 days PRN 02/26/2023 Active Albuterol Sulfate 108 (90 Base) MCG/ACT 2 puffs as needed Inhalation every 4 hrs for 30 days 05/21/2024 Not-Taking Benzonatate 200 MG 1 capsule as needed Orally Three times a day for 10 days 05/21/2024 Not-Taking Ventolin HFA 108 (90 Base) MCG/ACT 1 puff as needed Inhalation every 4 hrs for 30 days 02/26/2023 Active Advair HFA 115-21 MCG/ACT 2 puffs Inhala tion Twice a day for 30 days 06/04/2024 Active Nebulizer/Tubing/Mouthpie ce - as directed for 999 days 06/26/2024 Active Immunizations Vaccine Route Administration Date Status Comme nts COVID-19 Pfizer BioNTech Vaccine (HRSA) IM Intramuscular 10/09/2020 Administered EUA given COVID-19 Pfizer BioNTech Vaccine (HRSA) IM Intramuscular 10/30/2020 Administered EUA given COVID-19 Pfizer Hooper Cap (State Supplied) IM Intramuscular 09/15/2021 Administered EUA GIVEN DTaP (Historical) Unknown 01/25/2004 Administered DTaP (Historical) Unknown 04/19/2004 Administered DTaP (Historical) Unknown 07/28/2004 Administered DTaP (Historical) Unknown 03/27/2005 Administered DTaP (Historical) Unknown 04/06/2008 Administered DTaP-IPV Kinrix or Quadracel (Historical) Unknown 04/06/2008 Administered Hep A (Historical) Unknown 04/06/2008 Administered Hep A (Historical) Unknown 05/23/2009 Administered Hep B (Historical Adult) Unknown 2003 Administere d Hep B (Historical Adult) Unknown 01/25/2004 Administere d Hep B (Historical Adult) Unknown 04/19/2004 Administere d Hep B (Historical Adult) Unknown 07/28/2004 Administere d Hib (Historical Type Unknown) Unknown 01/25/2004 Administered Hib (Historical Type Unknown) Unknown 04/19/2004 Administered Hib (Historical Type Unknown) Unknown 07/28/2004 Administered Hib (Historical Type Unknown) Unknown 03/27/2005 Administered HPV (Historical) Unknown 12/10/2013 Administered HPV (Historical) Unknown 12/15/2014 Administered HPV (Historical) Unknown 07/21/2015 Administered HPV (State Supplied) IM Intramuscular 01/17/2016 Administe red Influenza (Declined) Unknown 03/03/2024 Refused Influenza (Historical) Unknown 04/19/2004 Administered Influenza (Historical) Unknown 03/27/2005 Administered Influenza (Historical) Unknown 04/02/2007 Administered Influenza (Historical) Unknown 08/06/2007 Administered Influenza (Historical) Unknown 04/06/2008 Administered Influenza (Historical) Unknown 04/20/2009 Administered Influenza (Historical) Unknown 05/23/2009 Administered Influenza (Historical) Unknown 09/20/2010 Administered Influenza (Historical) Unknown 03/13/2012 Administered Influenza (VFC 3 and above preservative free) IM Intramuscular 05/08/2016 Administered Influenza Intranasal (Historical) Unknown 07/21/2015 Administered Influenza Quad Fluarix (CHC 6mo+ preservative free) IM Intramuscular 02/26/2023 Administered Influenza Quad FluLaval (State Supplied 6mo+ preservative free) IM Intramuscular 01/29/2017 Administered Influenza Quad FluLaval (State Supplied 6mo+ preservative free) IM Intramuscular 04/17/2018 Administered Influenza Quad FluLaval (State Supplied 6mo+ preservative free) IM Intramuscular 01/16/2019 Administered Influenza Quad FluLaval (State Supplied 6mo+ preservative free) IM Intramuscular 03/18/2020 Administered Influenza Quad FluLaval (State Supplied 6mo+ preservative free) IM Intramuscular 01/23/2021 Administered Influenza Quad FluLaval (State Supplied 6mo+ preservative free) IM Intramuscular 04/05/2022 Administered IPV (Historical) Unknown 01/25/2004 Administered IPV (Historical) Unknown 04/19/2004 Administered IPV (Historical) Unknown 07/28/2004 Administered IPV (Historical) Unknown 03/27/2005 Administered Mening Conj. Menactra MCV4P (Historical) Unknown 12/15/2014 Administered Mening Conj. Menactra MCV4P (State supplied) IM Intramuscular 03/18/2020 Administered MMR (Historical) Unknown 11/08/2004 Administered MMR (Historical) Unknown 04/02/2007 Administered PCV 7 (Before Historical) Unknown 01/25/2004 Administered PCV 7 (Before Historical) Unknown 04/19/2004 Administered PCV 7 (Before Historical) Unknown 07/28/2004 Administered PCV 7 (Before Historical) Unknown 04/29/2007 Administered Tdap (Historical) Unknown 12/15/2014 Administered Varicella (Historical) Unknown 11/08/2004 Administered Varicella (Historical) Unknown 04/02/2007 Administered Social History Tobacco Use: Social History Observation Description Date Details (start date - stop date) Never Smoker NA - NA Sex Assigned At : Social History Observation Description Sex Assigned At Female Tobacco Control (Standard) Question Answer Notes Tobacco use: Nonsmoker Section Notes: PSC Score externalizing sx. Child had been in counseling in the past for being bullied. (see PMH above re: behavior concerns). Mother very unhappy with length of visit (x2 sibs) and said she had to leave before issues were fully addressed. She did not take children for lab work either. PSC Score externalizing sx. Child had been in counseling in the past for being bullied. (see PMH above re: behavior concerns). Mother very unhappy with length of visit (x2 sibs) and said she had to leave before issues were fully addressed. She did not take children for lab work either. PSC Score externalizing sx. Child had been in counseling in the past for being bullied. (see PMH above re: behavior concerns). Mother very unhappy with length of visit (x2 sibs) and said she had to leave before issues were fully addressed. She did not take children for lab work either. PSC Score externalizing sx. Child had been in counseling in the past for being bullied. (see PMH above re: behavior concerns). Mother very unhappy with length of visit (x2 sibs) and said she had to leave before issues were fully addressed. She did not take children for lab work either. Smoking Status Never Smoker Smokeless Tobacco Status Never Used PSC Score externalizing sx. Child had been in counseling in the past for being bullied. (see PMH above re: behavior concerns). Mother very unhappy with length of visit (x2 sibs) and said she had to leave before issues were fully addressed. She did not take children for lab work either. Smoking Status Never Smoker Smokeless Tobacco Status Never Used PSC Score externalizing sx. Child had been in counseling in the past for being bullied. (see PMH above re: behavior concerns). Smoking Status Never Smoker Smokeless Tobacco Status Never Used PSC Score externalizing sx. Child had been in counseling in the past for being bullied. (see PMH above re: behavior concerns). Smoking Status Never Smoker Smokeless Tobacco Status Never Used PSC Score externalizing sx. Child had been in counseling in the past for being bullied. (see PMH above re: behavior concerns). Smoking Status Never Smoker Smokeless Tobacco Status Never Used PSC Score externalizing sx. Child had been in counseling in the past for being bullied. (see PMH above re: behavior concerns). Smoking Status Never Smoker Smokeless Tobacco Status Never Used PSC Score externalizing sx. Child had been in counseling in the past for being bullied. (see PMH above re: behavior concerns). Smoking Status Never Smoker Smokeless Tobacco Status Never Used PSC Score externalizing sx. Child had been in counseling in the past for being bullied. (see PMH above re: behavior concerns). Smoking Status Never Smoker Smokeless Tobacco Status Never Used PSC Score externalizing sx. Child had been in counseling in the past for being bullied. (see PMH above re: behavior concerns). Smoking Status Never Smoker Smokeless Tobacco Status Never Used PSC Score externalizing sx. Child had been in counseling in the past for being bullied. (see PMH above re: behavior concerns). Smoking Status Never Smoker Smokeless Tobacco Status Never Used PSC Score externalizing sx. Child had been in counseling in the past for being bullied. (see PMH above re: behavior concerns). Smoking Status Never Smoker Smokeless Tobacco Status Never Used PSC Score externalizing sx. Child had been in counseling in the past for being bullied. (see PMH above re: behavior concerns). Smoking Status Never Smoker Smokeless Tobacco Status Never Used PSC Score externalizing sx. Child had been in counseling in the past for being bullied. (see PMH above re: behavior concerns). Smoking Status Never Smoker Smokeless Tobacco Status Never Used PSC Score externalizing sx. Child had been in counseling in the past for being bullied. (see PMH above re: behavior concerns). Smoking Status Never Smoker Smokeless Tobacco Status Never Used PSC Score externalizing sx. Child had been in counseling in the past for being bullied. (see PMH above re: behavior concerns). Smoking Status Never Smoker Smokeless Tobacco Status Never Used PSC Score externalizing sx. Child had been in counseling in the past for being bullied. (see PMH above re: behavior concerns). Mother very unhappy with length of visit (x2 sibs) and said she had to leave before issues were fully addressed. She did not take children for lab work either. Smoking Status Never Smoker Smokeless Tobacco Status Never Used PSC Score externalizing sx. Child had been in counseling in the past for being bullied. (see PMH above re: behavior concerns). Smoking Status Never Smoker Smokeless Tobacco Status Never Used Problems Problem Type SNOMED Code ICD Code Onset Dates Problem Status W/U Status Risk Notes Problem 596429432 Obesity, unspecified (E66.9) Active confirmed Problem 67626796 Oppositional defiant disorder (F91.3) Active confirmed Problem 00842689 Slow transit constipation (K59.01) Active confirmed Problem 000294673 Hypertrophy of breast (N62) Active confirmed Problem 19078721 Irregular menses (N92.6) Active confirmed Problem 23269041 Vitamin D deficiency (E55.9) Active confirmed Problem 345025552 Dysmenorrhea (N94.6) Active confirmed Problem 464178048 Learning difficulty (F81.9) Active confirmed Problem 403625671 Elevated hemoglobin A1c (R73.09) Active confirmed 07/2023 - hgb a1c 5.7 Problem 518501953 Mild persistent asthma without complication (J45.30) Active confirmed Problem 877533376 Behavior concern (R46.89) Active confirmed Previously she was involved with [facility] after 2 ED visits (08/18/14 and 09/18/14) for lkg-ba-powzad l behavior asscoicated with agitation. She has a h/o being bullied and taunted about her weight and calling me stupid (she receives [employer]). BEHAVIOR CONCERNS to be addressed (TE left with Behavioral Health for f/u call) Problem 70237833 Missed period (N92.6) Active confirmed Problem 16248427 Acute neutrophil ia (D72.828) Active confirmed Problem 95230995 Allergic rhiniti s, unspecified seasonality, unspecified trigger (J30.9) Active confirmed Problem 991345823 Gastroesophageal reflux disease, unspecified whether esophagitis present (K21.9) Active confirmed Problem 918035976 Iron deficiency anemia secondary to inadequate dietary iron intake (D50.8) Active confirmed Vital Signs Temperature 97.3 degrees Fahrenheit 06/26/2024 Respiratory Rate 18 /min 06/26/2024 Blood pressure diastolic 67 mm Hg 06/26/2024 Oximetry 95 % 06/26/2024 Height 63 in 06/26/2024 Blood pressure systolic 109 mm Hg 06/26/2024 Weight 288 lbs 06/26/2024 BMI 51.01 kg/m2 06/26/2024 Encounters Encounter Location Date Provider Diagnosis [facility] [address] [address] 12/13/2023 Rita Miles [address] [address] 12/17/2023 Rita Miles Allergic rhinitis, unspecified seasonality, unspecified trigger J30.[address] [address] 03/31/2024 Rita Miles [address] [place] [address] 04/21/2024 Rita Miles [address] [place] [address] 05/19/2024 Rita Miles [address] [place] [address] 06/04/2024 iRta Miles [address] [place] [address] 07/01/2024 Rita Miles [address] [place] [address] 07/02/2024 Rita Miles [address] [place] [address] 07/03/2024 Rita Miles [address] [place] [address] 07/14/2024 Rita Miles [address] [place] [address] 07/24/2024 Rita Miles Gastroesophageal ref lux disease, unspecified whether esophagitis present K21.9 and History of motion sickness Z87.[address] [address] 07/30/2024 Rita Miles [address] [address] 07/30/2024 Rita Miles [address] [address] 01/14/2024 Rita Miles Gastroesophageal ref lux disease, unspecified whether esophagitis present K21.9 and Missed period N92.[address] [address] 06/26/2024 Rita Miles Mild persistent asth ma without complication J45.[address] [address] 03/03/2024 Rita Miles Encounter for genera l adult medical examination with abnormal findings Z00.01 ; Irregular menses N92.6 and Dysmenorrhea N94.[address] [address] 07/21/2024 Rita Miles Prediabetes R73.03 ; Acute neutrophilia D72.828 and Mid back pain M54.9 [place] [address] 04/21/2024 Rita Miles Hypertrophy of breas t N62 ; History of motion sickness Z87.898 and Encounter for behavioral health screening Z13.30 [place] [address] 05/21/2024 Rita Miles Acute cough R05.1 Assessments Encounter Date Diagnosis (ICD Code) Assessment Notes Treatment Notes Treatment Clinical Notes Section Notes 12/17/2023 Allergic rhinitis, unspecified seasonality, unspecified trigger (ICD-10 - J30.9) 01/14/2024 Missed period (ICD-10 - N92.6) 01/14/2024 Gastroesophageal reflux disease, unspecified whether esophagitis present (ICD-10 - K21.9) Continue famotidine as needed Will step-up therapy once breath test is completed, Gastroesophageal Reflux Disease (GERD): Care Instructions material was printed 03/03/2024 Encounter for general adult medical examination with abnormal findings (ICD-10 - Z00.01) 03/03/2024 Irregular menses (ICD-10 - N92.6) 04/21/2024 Hypertrophy of breast (ICD-10 - N62) 04/21/2024 History of motion sickness (ICD-10 - Z87.898) 05/21/2024 Acute cough (ICD-10 - R05.1) Albuterol inhaler and tessalon pearls sent to pharmacy for cough Patient needs to comein for labs - states she will next week Rest and increase fluids She has no other questions or concerns at this time Coding; use Established Patient E&M code Add 95 Modifier if patient is at home Add GT Modifier if patient is at [facility] 06/26/2024 Mild persistent asthma without complication (ICD-10 - J45.30) 07/21/2024 Acute neutrophilia (ICD-10 - D72.828) Treated with Rocephin and azithromycin in the ED on 06/30/2024 Coding: Use UPDATED E&M code. Also applies when carrying over a previous visit. 07/21/2024 Prediabetes (ICD-10 - R73.03) a1c 6.3% Diet and exercise counseled Nutrition referral placed Coding: Use UPDATED E&M code. Also applies when carrying over a previous visit. 07/24/2024 Gastroesophageal reflux disease, unspecified whether esophagitis present (ICD-10 - K21.9) 07/24/2024 History of motion sickness (ICD-10 - Z87.898) 07/21/2024 Mid back pain (ICD-10 - M54.9) Secondary to lifting at job Coding: Use UPDATED E&M code. Also applies when carrying over a previous visit. 04/21/2024 Encounter for behavioral health screening (ICD-10 - Z13.30) 03/03/2024 Dysmenorrhea (ICD-10 - N94.6) 12/31/2023 Other Heart-Healthy Diet: Care Instructions material was printed 01/10/2024 Other Heart-Healthy Diet: Care Instructions material was printed 03/05/2024 Other Body Mass Index : Care Instructions material was printed 08/05/2024 Other Visit START: Visit END: Plan Of Treatment Pending Test Test Name Order Date Comp Metabolic Panel w/eGFR 16727 2022 Hepatic Function Panel 52537 09/03/2022 C-Reactive Protein 4420 09/03/2022 CBC (Includes Diff/Plt) 6399 09/03/2022 TSH w/Free T4 rfx 87916 09/03/2022 ESR,Westergren 809 09/03/2022 Hemoglobin A1c 496 09/03/2022 H.Pylori Breath Test 91464 01/14/2024 AMYLASE 243 03/12/2022 Lipid Panel, Nonfasting w/o Triglyceride s 03914 09/03/2022 Next Appt Details Provider Name:Rohan Cosmejefryghanshyam , 08/12/2024 01:20:00 PM, [address] [facility], [place], [place], [id number], Insurance Providers Payer Name Payer Address Payer Phone Subscriber Number Group Number Insured Name Patient Relationship to Insured Coverage Start Date Coverage End Date Medicaid Jade [place]yer [place] [address] [phone] [id number] Marixa Bass Self - patient is the insured [place] [address] [id number] Marixa Bass Self - patient is the insured Medical (General) History Medical History History ICD Code obstructive sleep apnea obesity mild intermittent asthma vitamin d deficiency Behavior concern H/O out of control behavior requiring ED visits on 08/18/14 and 09/18/14. H/O being bullied and taunted about being fat and being stupid . [facility] involved in past EKG 09/27/20: essentially normal[place] [facility] [place]: given albu terol, decadron; rapid strep neg-d/c home with supportive care instructions. Mild persistent asthma, unspecified whet her complicated J45.30 Admitted for 23 hrs to [facility] for LLQ and supraumbilical pain. US showed R adenexal cyst, L ovary not visualized d/t overlying gas. Given IVF for hydration and tylenol/motrin PRN, d/c with OBGYN follow up Surgical History Surgery Date(Month/Year) T&A 03/2008
--- OUTSIDE RECORDS SUMMARY | 2024-08-07 03:46 | XMS_ITS ---
Author Organization [facility] [employer] [place] [employer] Address [address] [id number] [address] Care Team Providers Care Real Estate Development Manager Name Role Phone [facility] Primary Care Provid er Unavailable Amber Wheat [phone] Encounters Encounter Location Date Provider Diagnosis OB/CDE-[facility] Facility [address] [place] [address] 05/13/2023 Amber Wheat PLAN OF TREATMENT No Information
--- OUTSIDE RECORDS SUMMARY | 2024-08-07 03:46 | XMS_ITS | Clinical Summary ---
Author Organization [facility] Address [address] [place] [address] Phone Care Team Providers Care Brim Stitcher Name Role Phone Rita Miles Primary Care Provid er Allergies No known active allergies Medications albuterol 5 mg/mL nebulizer solution Take 0.5 mL (2.5 mg total) by nebulization every 6 (six) hours if needed for wheezing. 20 mL 4 Active predniSONE (DELTASONE) 20 mg tablet Take 2 tablets (40 mg total) by mouth 1 (one) time each day for 2 days, THEN 1.5 tablets (30 mg total) 1 (one) time each day for 2 days, THEN 1 tablet (20 mg total) 1 (one) time each day for 2 days, THEN 0.5 tablets (10 mg total) 1 (one) time each day for 2 days. 10 each 5 07/09/19 25 Active Problems Problem Noted Date Diagnosed Date Asthma exacerbation 06/30/2024 Encounters Date Type Department Care Team Description 06/30/2024 2:36 AM EST - 06/30/2024 10:56 AM EST [facility] Emergency [address] [place] [phone] Fainsod, Jose DMD Isaías Harmandeep S, MD Edwards, Matthew B, DO Exacerbation of asthma, unspecified asthma severity, unspecified whether persistent (Primary Dx); Hypoxia; Hypokalemia Discharge Disposition: Left Against Medical Advice 06/16/2024 2:56 AM EST - 06/16/2024 8:32 AM EST Emergency [facility] Emergency [address] [place] [phone] Imer Mora MD Moderate asthma with exacerbation, unspecified whether persistent (Primary Dx) Discharge Disposition: Left Against Medical Advice 05/17/2024 10:54 PM EST - 05/18/2024 2:55 AM EST Emergency [facility] Emergency [address] [place] [address] Acute pharyngitis, unspecified etiology (Primary Dx); Mild asthma, unspecified whether complicated, unspecified whether persistent Discharge Disposition: Home or Self Care from Last 3 Months Medical History Medical History Date Comments Asthma DX:Asthma Social History Tobacco Use Types Packs/Day Years Used Date Smoking Tobacco: Never Smokeless Tobacco: Never Alcohol Use Standard Drinks/Week Comments No 0 (1 standard drink = 0.6 oz pur e alcohol) Comments Unknown Sex and Gender Information Value Date Recorded Sex Assigned at Not on file Legal Sex Female 2:13 AM EST Gender Identity Not on file Sexual Orientation Not on file Obstetrics History Last Filed Vital Signs Vital Sign Reading Time Taken Comments Blood Pressure 124/65 06/30/2024 7:35 AM EST Pulse 121 06/30/2024 8:15 AM EST Temperature 36.7 ??C (98 ??F) 06/30/2024 6:43 AM EST Respiratory Rate 40 06/30/2024 8:15 AM EST Oxygen Saturation 95% 06/30/2024 8:15 AM EST Inhaled Oxygen Concentration - - Weight 118 kg (260 lb) 06/30/2024 2:32 AM EST Height 165.1 cm (5' 5 ) 06/30/2024 2:32 AM EST Body Mass Index 43.27 06/30/2024 2:32 AM EST Plan of Treatment Health Maintenance Due Date Last Done Comments Gonorrhea/Chlamydia Screening 2003 Pneumococcal Vaccine: Pediatrics (0 to 5 Years) and At-Risk Patients (6 to 64 Years) (1 of 1 - PPSV23) 10/16/2009 04/29/2007, 07/28/2004, 04/19/2004, Additional history exists Meningococcal B Vacine (1 of 2 - Standard) 2019 COVID-19 Vaccine (4 - season) 2024 09/15/2021, 10/30/2020, 10/09/2020 Influenza Vaccine (#1) 2024 3, 04/05/2022, 01/23/2021, Additional history exists Annual Well Child Visit (3-21 years old) 03/10/2024 12/15/2014, 12/10/2013 Cholesterol Screening (Lipid Panel) 03/10/2024 Depression Screening 03/10/2024 HIV Screening 03/10/2024 Hepatitis C Screening 03/10/2024 Social Influencers of Health Screening 03/10/2024 DTaP,Tdap,and Td Vaccines (7 - Td or Tdap) 12/15/2024 12/15/2014, 04/06/2008, 04/06/2008, Additional history exists Hepatitis B Vaccines Completed 07/28/2004, 04/19/2004, 01/25/2004, Additional history exists HIB Vaccines Completed 03/27/2005, 07/05, 04/19/2004, Additional history exists MMR Vaccines Completed 04/02/2007, 11/08/2004 Varicella Vaccines Completed 04/02/2007, 11/08/2004 IPV Vaccines Completed 04/06/2008, 03/04, 07/28/2004, Additional history exists Hepatitis A Vaccines Completed 05/23/2009, 04/06/20 08 HPV Vaccines Completed 07/21/2015, 12/01, 12/10/2013 Meningococcal ACWY Vaccine Completed 03/18/2020, RSV Immunization Patients Under 20 months Aged Out No longer eligible based on patient's age to complete this topic Procedures Procedure Name Priority Date/Time Associated Diagnosis Comments PEAK FLOW Routine 06/30/2024 6:07 AM EST HCG QUALITATIVE, URINE STAT 4:16 AM EST LACTATE, WITH REFLEX STAT 06/30/2024 4:08 AM EST CULTURE BLOOD STAT 06/30/2024 4:08 AM EST CULTURE BLOOD STAT 06/30/2024 4:08 AM EST XR CHEST 1 VIEW STAT 06/30/2024 3:56 AM EST [id number], RSV, FLU A AND B QUALITATIVE RT-PCR, INTERNAL LAB STAT 06/30/2024 3:29 AM EST RBC MORPHOLOGY REVIEW Routine 06/30/2024 3:27 AM EST CBC WITH AUTO DIFFERENTIAL STAT 06/30/2024 3:27 AM EST TROPONIN I HIGH SENSITIVITY STAT 06/30/2024 3:27 AM EST B-TYPE NATRIURETIC PEPTIDE STAT 06/30/2024 3:27 AM EST BASIC METABOLIC PANEL STAT 06/30/2024 3:27 AM EST CBC AND DIFFERENTIAL STAT 06/30/2024 3:27 AM EST RHYTHM ECG, REPORT Routine 06/30/2024 2: 51 AM EST ECG 12-LEAD STAT 06/30/2024 2:46 AM EST [facility] 30-74 MINUTES Routine 06/30/2024 2:30 AM EST [id number], RSV, FLU A AND B QUALITATIVE RT-PCR, INTERNAL LAB STAT 06/16/2024 3:37 AM EST XR CHEST 2 VIEWS STAT 05/18/2024 2:18 AM EST CBC WITH AUTO DIFFERENTIAL STAT 05/18/2024 12:16 AM EST LIPASE STAT 05/18/2024 12:16 AM EST COMPREHENSIVE METABOLIC PANEL STAT 05/18/2024 12:16 AM EST CBC AND DIFFERENTIAL STAT 05/18/2024 12:16 AM EST D-DIMER STAT 05/18/2024 12:16 AM EST CULTURE THROAT STAT 05/17/2024 10:50 PM EST RESPIRATORY VIRUS PANEL MOLECULAR STUDY STAT 05/17/2024 10:50 PM EST RAPID STREP A SCREEN STAT 05/17/2024 10:50 PM EST from Last 3 Months Results * HCG qualitative, urine (06/30/2024 4:16 AM EST) Preg Test, Ur Negative Negative 06/30/2024 4:31 AM EST [facility] Urine Urine specimen obtained by clean catch procedure / Unknown Non-blood Collection / Unknown 06/30/2024 4:16 AM EST 06/30/2024 4:27 AM EST us Jose D Whittington MD LAB URINE ORDERABLES Final Res ult [facility] [address] [place] [address], [place] [phone] * Lactate, with reflex (06/30/2024 4:08 AM EST) LACTIC ACID 1.8 <=2.0 mmol/L LAB BLOOD GAS METHOD 06/30/2024 4:18 AM EST [facility] Blood Venous blood specimen / Unknown Venipuncture / Unknown 06/30/2024 4:08 AM EST 06/30/2024 4:16 AM EST us Jose D Whittington MD LAB BLOOD ORDERABLES Final Res ult [facility] [address] [place] [address], [place] [phone] * Blood Culture, Peripheral Draw #2 (06/30/2024 4:08 AM EST) Only the most recent of2 resultswithin the time period is included. Culture, Blood No growth at 5 days 07/05/2024 12:01 PM EST [facility] Blood Venous blood specimen / Unknown Venipuncture / Unknown 06/30/2024 4:08 AM EST 06/30/2024 4:15 AM EST Jose D Whittington MD LAB MICROBIOLOGY - GENERAL ORD ERABLES Final Result Performing Organization Address [facility]/ZIP Co de Phone Number [facility] [address] [place] [address], [place] [phone] * XR Chest 1 View (06/30/2024 3:56 AM EST) Anatomical Region Laterality Modality Body Radiographic Kiki ging 06/30/2024 4:10 AM EST Impressions 06/30/2024 4:11 AM EST FINDINGS/IMPRESSION: Lungs are clear. Heart is normal in size. Report reviewed and signed by : Dr. Clinton Mackey on 06/30/2024 4:11 AM. Workstation Name - [id number] -------- FINAL REPORT -------- Dictated By: Clinton Mackey Dictated Date: 06/30/2024 04:10 ET Assigned Physician: Clinton Mackey Reviewed and Electronically Signed By: Clinton Mackey Signed Date: 06/30/2024 04:11 ET Workstation ID: [id number] Transcribed By: Self Edit Transcribed Date: 06/30/2024 04:10 ET Narrative 06/30/2024 4:11 AM EST XR CHEST 1 VIEW HISTORY:18 years Female ??dyspnea COMPARISON:None Procedure Note Clinton Mackey MD - 06/30/2024 XR CHEST 1 VIEW HISTORY:18 years Female dyspnea COMPARISON:None IMPRESSION: FINDINGS/IMPRESSION: Lungs are clear. Heart is normal in size. Report reviewed and signed by : Dr. Clinton aMckey on 06/30/2024 4:11 AM.Workstation Name - [id number] -------- FINAL REPORT -------- Dictated By: Clinton Mackey Dictated Date: 06/30/2024 04:10 ET Assigned Physician: Clinton Mackey Reviewed and Electronically Signed By: Clinton Mackey Signed Date: 06/30/2024 04:11 ET Workstation ID: [id number] Transcribed By: Self Edit Transcribed Date: 06/30/2024 04:10 ET Jose D Whittington MD IMG XR PROCEDURES Final Result * [id number], RSV, Influenza A and B qualitative RT-PCR (06/30/2024 3:29 AM EST) Only the most recent of2 resultswithin the time period is included. Influenza A PCR Negative Negative LAB MOLECULAR DIAGNOSTICS METHOD 06/30/2024 4:12 AM [facility] Influenza B PCR Negative Negative LAB MOLECULAR DIAGNOSTICS METHOD 06/30/2024 4:12 AM [facility] RSV PCR Negative Negative LAB MOLECULAR DIAGNOSTICS METHOD 06/30/2024 4:12 AM [facility] SARS COV-2 Negative Negative LAB MOLECULAR DIAGNOSTICS METHOD 06/30/2024 4:12 AM [facility] Swab Both anterior nares / Unknown Non-blood Collection / Unknown 06/30/2024 3:29 AM EST 06/30/2024 3:32 AM EST [facility] - 06/30/2024 4:12 AM EST This test has been authorized by FDA under an emergency used authorization (EUA). This EUA will cease to be effective when declared by [facility] that circumstances exist to justify its termination under section 564(bB)(2) of the Federal Food, Drug, and Cosmetic Act (The Act) 21 U.S.C. 360bbb 30,or when the EUA is revoked under section 564 (g) of the Act. Testing was performed using the [employer] Xpert Xpress SARS-CoV2/FLU/RSV test. Negative results do not preclude SARS COV-2 test infection and should not be used as a sole basis for treatment or other patient management decisions. Negative results must be combined with clinical observation, patient history, and epidemiological information. Jose D Whittington MD LAB MICROBIOLOGY - GENERAL ORD ERABLES Final Result Performing Organization Address [facility]/ZIP Co de Phone Number [facility] [address] [place] [address], [place] [phone] * Troponin I high sensitivity (06/30/2024 3:27 AM EST) [facility] High Sensitivity Troponin I 2 0 - 14 ng/L LAB CHEMISTRY METHOD 06/30/2024 4:04 AM EST [facility] Blood Venous blood specimen / Unknown Venipuncture / Unknown 06/30/2024 3:27 AM EST 06/30/2024 3:33 AM EST Narrative [facility] - 06/30/2024 4:04 AM EST HSTnI results stratify to HIGH RISK category if any value >100 ng/L or delta at 1 hour is greater than or equal to 15 ng/L (male and female). Note: Delta values are not applicable if symptoms began more than 12 hours pre-arrival. Risk stratification should include the calculation of the HEART score. Testing performed using The [employer] Access AccuTnI+3 Assay. Jose D Whittington MD LAB BLOOD ORDERABLES Final Res ult Performing Organization Address City/[facility]/ZIP Co de Phone Number [facility] [address] [place] [address], [place] [phone] * (ABNORMAL) RBC morphology review (06/30/2024 3:27 AM EST) RBC Morphology Reviewed 06/30/2024 3:58 AM EST [facility] Anisocytosis 2+(A) None 06/30/2024 3:58 AM EST [facility] Polychromasia Few(A) None 06/30/2024 3:58 AM EST [facility] Hypochromia 2+(A) None 06/30/2024 3:58 AM EST [facility] Elliptocytes/Ova locytes 2+(A) None 06/30/2024 3:58 AM EST [facility] Microcytes Many(A) None 06/30/2024 3:58 AM EST [facility] Macrocytes Few(A) None 06/30/2024 3:58 AM EST [facility] Stomatocytes 1+(A) None 06/30/2024 3:58 AM [facility] Platelet Estimate Platelets Appear Normal Platelets Appear Normal 06/30/2024 3:58 AM EST [facility] Giant Platelets Few(A) None 3:58 AM [facility] Blood Venous blood specimen / Unknown Venipuncture / Unknown 06/30/2024 3:27 AM EST 06/30/2024 3:33 AM EST us Jose D Whittington MD LAB BLOOD ORDERABLES Final Res ult [facility] [address] [place] [address], * (ABNORMAL) CBC auto differential (06/30/2024 3:27 AM EST) Only the most recent of2 resultswithin the time period is included. WBC 14.1(H) 4.0 - 10.5 K/mcL LAB HEMETOLOGY METHOD 06/30/2024 3:41 AM [facility] RBC 5.06 4.20 - 5.40 M/mcL LAB HEMETOLOGY METHOD 06/30/2024 3:41 AM [facility] Hemoglobin 9.6(L) 12.5 - 16.0 g/dL LAB HEMETOLOGY METHOD 06/30/2024 3:41 AM [facility] Hematocrit 32.9(L) 37.0 - 47.0 % LAB HEMETOLOGY METHOD 06/30/2024 3:41 AM [facility] MCV 65.0(L) 78.0 - 100.0 FL LAB HEMETOLOGY METHOD 06/30/2024 3:41 AM [facility] MCH 19.0(L) 25.0 - 33.0 pcg LAB HEMETOLOGY METHOD 06/30/2024 3:41 AM [facility] MCHC 29.2(L) 32.0 - 36.0 g/dL LAB HEMETOLOGY METHOD 06/30/2024 3:41 AM [facility] RDW 22.4(H) 12.1 - 16.2 % LAB HEMETOLOGY METHOD 06/30/2024 3:41 AM [facility] Platelets 442 150 - 450 K/mcL LAB HEMETOLOGY METHOD 06/30/2024 3:41 AM [facility] MPV 10.3 7.4 - 11.4 FL LAB HEMETOLOGY METHOD 06/30/2024 3:41 AM [facility] Neutrophils Relative 60.9 44.0 - 74.0 % LAB HEMETOLOGY METHOD 06/30/2024 3:41 AM [facility] Lymphocytes Relative 24.4 20.0 - 48.0 % LAB HEMETOLOGY METHOD 06/30/2024 3:41 AM [facility] Monocytes Relative 6.3 2.0 - 12.0 % LAB HEMETOLOGY METHOD 06/30/2024 3:41 AM [facility] Eosinophils Relative 7.4(H) 0.0 - 6.0 % LAB HEMETOLOGY METHOD 06/30/2024 3:41 AM [facility] Basophils Relative 0.5 0.0 - 2.0 % LAB HEMETOLOGY METHOD 06/30/2024 3:41 AM [facility] Neutrophils Absolute 8.55(H) 1.80 - 7.80 K/mcL LAB HEMETOLOGY METHOD 06/30/2024 3:41 AM [facility] Lymphocytes Absolute 3.43(H) 1.00 - 3.20 K/mcL LAB HEMETOLOGY METHOD 06/30/2024 3:41 AM [facility] Monocytes Absolute 0.89(H) 0.00 - 0.80 K/mcL LAB HEMETOLOGY METHOD 06/30/2024 3:41 AM [facility] Eosinophils Absolute 1.04(H) 0.00 - 0.50 K/mcL LAB HEMETOLOGY METHOD 06/30/2024 3:41 AM [facility] Basophils Absolute 0.07 0.00 - 0.20 K/mcL LAB HEMETOLOGY METHOD 06/30/2024 3:41 AM [facility] Blood Venous blood specimen / Unknown Venipuncture / Unknown 06/30/2024 3:27 AM EST 06/30/2024 3:33 AM EST Jose D Whittington MD LAB BLOOD ORDERABLES Final Res ult [facility] [address] [place] [address], [place] [phone] * B-type natriuretic peptide (06/30/2024 3:27 AM EST) Pathologist [facility] BNP 18 0 - 100 pcg/mL LAB CHEMISTRY METHOD 06/30/2024 4:09 AM EST [facility] Blood Venous blood specimen / Unknown Venipuncture / Unknown 06/30/2024 3:27 AM EST 06/30/2024 3:33 AM EST Jose D Whittington MD LAB BLOOD ORDERABLES Final Res ult Performing Organization Address City/[facility]/ZIP Co de Phone Number [facility] [address] [place] [address], [place] [phone] * (ABNORMAL) Basic metabolic panel (06/30/2024 3:27 AM EST) [facility] Sodium 138 135 - 145 mmol/L LAB CHEMISTRY METHOD 06/30/2024 3:56 AM [facility] Potassium 3.4(L) 3.5 - 5.1 mmol/L LAB CHEMISTRY METHOD 06/30/2024 3:56 AM [facility] Chloride 101 98 - 107 mmol/L LAB CHEMISTRY METHOD 06/30/2024 3:56 AM [facility] CO2 28 24 - 32 mmol/L LAB CHEMISTRY METHOD 06/30/2024 3:56 AM [facility] Anion Gap 9 5 - 14 LAB CHEMISTRY METHOD 06/30/2024 3:56 AM [facility] Glucose 127 70 - 199 mg/dL LAB CHEMISTRY METHOD 06/30/2024 3:56 AM [facility] BUN 7 7 - 17 mg/dL LAB CHEMISTRY METHOD 06/30/2024 3:56 AM EST [facility] Creatinine 0.70 0.50 - 1.00 mg/dL LAB CHEMISTRY METHOD 06/30/2024 3:56 AM [facility] eGFR 127 >=60 mL/min/1. 73m2 LAB CHEMISTRY METHOD 06/30/2024 3:56 AM EST [facility] Comment:Calculation based on the??Chronic Kidney Disease Epidemiology Collaboration (CKD-EPI) equation refit??without adjustment for race. BUN/Creatinine Ratio 10.0(L) 12.0 - 20.0 LAB CHEMISTRY METHOD 06/30/2024 3:56 AM [facility] Calcium 9.0 8.4 - 10.2 mg/dL LAB CHEMISTRY METHOD 06/30/2024 3:56 AM [facility] Blood Venous blood specimen / Unknown Venipuncture / Unknown 06/30/2024 3:27 AM EST 06/30/2024 3:33 AM EST us Jose D Whittington MD LAB BLOOD ORDERABLES Final Res ult [facility] [address] [place] [address], * (ABNORMAL) RHYTHM ECG, REPORT (06/30/2024 2:51 AM EST) Narrative Jose D Whittington MD - 06/30/2024 2:51 AM EST Jose D Whittington MD ? 06/30/2024 ??5:01 AM ECG Rhythm Interpretation and Report Date/Time: 06/30/2024 2:51 AM Performed by: Jose D Whittington MD Authorized by: Jose D Whittington MD ?? ECG interpreted by ED Physician in the absence of a supervisor coating: yes ?? Interpretation: ??Interpretation: abnormal ?Details: ??Sinus tachycardia with ventricular rate of 110 bpm. ??Normal OH, QRS, QTc, axis. ??No acute ischemic changes. us Jose D Whittington MD ECG ORDERABLES Final Result * ECG 12 lead (06/30/2024 2:46 AM EST) Ventricular Rate ECG 110 BPM GEMUSE Atrial Rate 110 BPM GEMUSE P-R Interval 156 ms GEMUSE QRS Duration 78 ms GEMUSE Q-T Interval 334 ms GEMUSE QTc 452 ms GEMUSE P Wave [place] 57 degrees GEMUSE R [place] 24 degrees GEMUSE T [place] 18 degrees GEMUSE ECG Interpretation Sinus tachycardia Otherwise normal ECG No previous ECGs available Confirmed by Gayatri Quintero ([id number]) on 06/30/2024 9:15:27 AM GEMUSE 06/30/2024 2:46 AM EST 06/30/2024 9:15 AM EST us Jose D Whittington MD ECG ORDERABLES Final Result GEMUSE * [facility] CRITICAL CARE 30-74 MINUTES (06/30/2024 2:30 AM EST) Narrative Jose D Whittington MD - 06/30/2024 2:30 AM EST Jose D Whittington MD ? 06/30/2024 ??5:01 AM Critical Care Performed by: Jose D Whittington MD Authorized by: Jose D Whittington MD ?? Critical care provider statement: ??Critical care time (minutes): ??30 ??Critical care time was exclusive of: ??Separately billable procedures and treating other patients ??Critical care was necessary to treat or prevent imminent or life-threatening deterioration of the following conditions: ??Respiratory failure ??Critical care was time spent personally by me on the following activities: ??Blood draw for specimens, examination of patient, evaluation of patient's response to treatment, re-evaluation of patient's condition, pulse oximetry, ordering and review of radiographic studies, ordering and review of laboratory studies and ordering and performing treatments and interventions ??I assumed direction of critical care for this patient from another provider in my specialty: no ?Care discussed with: admitting provider ?? us Jose D Whittington MD IN CLINIC/BEDSIDE ORDERABLES F inal Result * XR Chest 2 Views (05/18/2024 2:18 AM EST) Anatomical Region Laterality Modality Body Radiographic Kiki ging 05/18/2024 7:59 AM EST Impressions 05/18/2024 8:01 AM EST No acute cardiopulmonary process seen. -------- FINAL REPORT -------- Dictated By: Akhil Chau Dictated Date: 05/18/2024 07:59 ET Assigned Physician: Akhil Chau Reviewed and Electronically Signed By: Akhil Chau Signed Date: 05/18/2024 08:01 ET Workstation ID: [id number] Transcribed By: Self Edit Transcribed Date: 05/18/2024 07:59 ET Narrative 05/18/2024 8:01 AM EST EXAMINATION: Chest 2 views. CLINICAL INDICATION: Cough, asthma and nonsmoker. COMPARISON: None. FINDINGS: The lungs are somewhat expanded and clear of acute pneumonic process. Heart size and pulmonary vascularity is normal. No gross bony abnormality is seen. Procedure Note Akhil Chau MD - 05/18/2024 EXAMINATION: Chest 2 views. CLINICAL INDICATION: Cough, asthma and nonsmoker. COMPARISON: None. FINDINGS: The lungs are somewhat expanded and clear of acute pneumonicprocess. Heart size and pulmonary vascularity is normal. No gross bonyabnormality is seen. IMPRESSION: No acute cardiopulmonary process seen. -------- FINAL REPORT -------- Dictated By: Akhil Chau Dictated Date: 05/18/2024 07:59 ET Assigned Physician: Akhil Chau Reviewed and Electronically Signed By: Akhil Chau Signed Date: 05/18/2024 08:01 ET Workstation ID: [id number] Transcribed By: Self Edit Transcribed Date: 05/18/2024 07:59 ET us [facility] IMG XR PROCEDURES Final Re sult * D-dimer, quantitative (05/18/2024 12:16 AM EST) D-Dimer, Quant (D-DU) 155 <=230 ng/mL DDU LAB COAGULATION METHOD 05/18/2024 12:42 AM EST [facility] Blood Venous blood specimen / Unknown Venipuncture / Unknown 05/18/2024 12:16 AM EST 05/18/2024 12:30 AM EST Narrative [facility] - 05/18/2024 12:42 AM EST D-Dimer <230 ng/mL (D-Dimer units) is the threshold for exclusion of DVT/PE. D-Dimer may be elevated in: Critically ill, severely infected, trauma patients, DIC, acute CVA, acute PA, unstable angina, AF, old age, , and smoking. D-Dimer may be decreased with: Initiation of heparin therapy and oral anticoagulants. [facility] LAB BLOOD ORDERABLES Final Result Performing Organization Address [facility]/ZIP Co de Phone Number [facility] [address] [place] [address], [place] [phone] * Lipase (05/18/2024 12:16 AM EST) [facility] Lipase 23 13 - 75 unit/L LAB CHEMISTRY METHOD 05/18/2024 12:53 AM EST [facility] Blood Venous blood specimen / Unknown Venipuncture / Unknown 05/18/2024 12:16 AM EST 05/18/2024 12:30 AM EST [facility] LAB BLOOD ORDERABLES Final Result [facility] [address] [place] [address], [place] [phone] * Comprehensive metabolic panel (05/18/2024 12:16 AM EST) [facility] Sodium 141 133 - 145 mmol/L LAB CHEMISTRY METHOD 05/18/2024 12:53 AM EST [facility] Potassium 3.7 3.5 - 5.5 mmol/L LAB CHEMISTRY METHOD 05/18/2024 12:53 AM [facility] Chloride 105 96 - 110 mmol/L LAB CHEMISTRY METHOD 05/18/2024 12:53 AM [facility] CO2 32 21 - 32 mmol/L LAB CHEMISTRY METHOD 05/18/2024 12:53 AM [facility] Anion Gap 4 3 - 11 LAB CHEMISTRY METHOD 05/18/2024 12:53 AM [facility] Glucose 92 70 - 100 mg/dL LAB CHEMISTRY METHOD 05/18/2024 12:53 AM [facility] BUN 9 5 - 25 mg/dL LAB CHEMISTRY METHOD 05/18/2024 12:53 AM [facility] Creatinine 0.72 0.50 - 1.10 mg/dL LAB CHEMISTRY METHOD 05/18/2024 12:53 AM [facility] eGFR 123 >=60 mL/min/1. 73m2 LAB CHEMISTRY METHOD 05/18/2024 12:53 AM [facility] Comment:Calculation based on the??Chronic Kidney Disease Epidemiology Collaboration (CKD-EPI) equation refit??without adjustment for race. BUN/Creatinine Ratio 12.5 LAB CHEMISTRY METHOD 05/18/2024 12:53 AM [facility] Calcium 9.4 8.5 - 10.5 mg/dL LAB CHEMISTRY METHOD 05/18/2024 12:53 AM [facility] AST (SGOT) 19 10 - 42 unit/L LAB CHEMISTRY METHOD 05/18/2024 12:53 AM [facility] ALT (SGPT) 19 10 - 60 unit/L LAB CHEMISTRY METHOD 05/18/2024 12:53 AM [facility] Alkaline Phosphatase 93 42 - 121 unit/L LAB CHEMISTRY METHOD 05/18/2024 12:53 AM [facility] Total Protein 7.4 6.0 - 8.0 g/dL LAB CHEMISTRY METHOD 05/18/2024 12:53 AM EST [facility] Albumin 3.6 3.2 - 5.0 g/dL LAB CHEMISTRY METHOD 05/18/2024 12:53 AM [facility] Total Bilirubin 0.2 0.0 - 1.4 mg/dL LAB CHEMISTRY METHOD 05/18/2024 12:53 AM [facility] Blood Venous blood specimen / Unknown Venipuncture / Unknown 05/18/2024 12:16 AM EST 05/18/2024 12:30 AM EST us [facility] LAB BLOOD ORDERABLES Final Result [facility] [address] [place] [address], [place] [phone] * Respiratory virus panel molecular study (05/17/2024 10:50 PM EST) Adenovirus Detection by PCR Not Detected Not Detected LAB MICROBIOLOGY METHOD 05/18/2024 12:07 AM [facility] Influenza A PCR Not Detected Not Detected LAB MICROBIOLOGY METHOD 05/18/2024 12:07 AM [facility] [facility] Influenza B PCR Not Detected Not Detected LAB MICROBIOLOGY METHOD 05/18/2024 12:07 AM [facility] Coronavirus 229E Not Detected Not Detected LAB MICROBIOLOGY METHOD 05/18/2024 12:07 AM [facility] Coronavirus HKU1 Not Detected Not Detected LAB MICROBIOLOGY METHOD 05/18/2024 12:07 AM [facility] Coronavirus OC43 Not Detected Not Detected LAB MICROBIOLOGY METHOD 05/18/2024 12:07 AM [facility] Coronavirus NL63 Not Detected Not Detected LAB MICROBIOLOGY METHOD 05/18/2024 12:07 AM [facility] Parainfluenza Virus 1 Not Detected Not Detected LAB MICROBIOLOGY METHOD 05/18/2024 12:07 AM [facility] Parainfluenza Virus 2 Not Detected Not Detected LAB MICROBIOLOGY METHOD 05/18/2024 12:07 AM [facility] Parainfluenza Virus 3 Not Detected Not Detected LAB MICROBIOLOGY METHOD 05/18/2024 12:07 AM [facility] Parainfluenza Virus 4 Not Detected Not Detected LAB MICROBIOLOGY METHOD 05/18/2024 12:07 AM [facility] RSV PCR Not Detected Not Detected LAB MICROBIOLOGY METHOD 05/18/2024 12:07 AM [facility] Human Metapneumovirus A and B Not Detected Not Detected LAB MICROBIOLOGY METHOD 05/18/2024 12:07 AM [facility] Rhinovirus/Entero virus Not Detected Not Detected LAB MICROBIOLOGY METHOD 05/18/2024 12:07 AM [facility] Bordetella pertussis Not Detected Not Detected LAB MICROBIOLOGY METHOD 05/18/2024 12:07 AM [facility] Bordetella parapertussis Not Detected Not Detected LAB MICROBIOLOGY METHOD 05/18/2024 12:07 AM [facility] Mycoplasma pneumo by PCR Not Detected Not Detected LAB MICROBIOLOGY METHOD 05/18/2024 12:07 AM [facility] Chlamydia pneumoniae Not Detected Not Detected LAB MICROBIOLOGY METHOD 05/18/2024 12:07 AM [facility] SARS COV-2 Not Detected Not Detected LAB MICROBIOLOGY METHOD 05/18/2024 12:07 AM [facility] Swab Both anterior nares / Unknown Non-blood Collection / Unknown 05/17/2024 10:50 PM EST 05/17/2024 11:11 PM [facility] - 05/18/2024 12:07 AM EST Testing was performed using the [employer] Globale Respiratory Pathogen PCR Assay. All results must be correlated with the clinical findings. Results should not be used as the sole basis for diagnosis. False Negative results may occur from the presence of sequence variants in the region targeted by the assay or the presence of inhibitors. Results may be affected by concurrent antiviral/antimicrobial therapy or levels of organisms that are below the limit of detection. us Garret Bae MD LAB MICROBIOLOGY - GENERA L ORDERABLES Final Result Performing Organization Address [facility] Co de Phone Number [facility] [address] [place] [address], [place] [phone] * Rapid strep A screen (05/17/2024 10:50 PM EST) Pathologist [facility] Strep A Ag Negative Negative, Invalid 05/17/2024 11:29 PM EST [facility] Comment:Refer to Throat Cult ure. Swab Structure of anterior portion of neck / Unknown Non-blood Collection / Unknown 05/17/2024 10:50 PM EST 05/17/2024 11:12 PM EST us Garret Bae MD LAB MICROBIOLOGY - GENERA L ORDERABLES Final Result Performing Organization Address [facility] Number [facility] [address] [place] [address], [place] [phone] * Culture throat (05/17/2024 10:50 PM EST) [facility] Culture, Throat No pathogens isolated. 05/19/2024 9:48 AM EST [facility] Swab Structure of anterior portion of neck / Unknown Non-blood Collection / Unknown 05/17/2024 10:50 PM EST 05/17/2024 11:12 PM EST us Garret Bae MD LAB MICROBIOLOGY - GENERA L ORDERABLES Final Result Performing Organization Address [facility] Co de Phone Number [facility] [address] [place] [address], [place] [phone] from Last 3 Months Insurance [place] - [place] MED[place] Advance Directives * Full Code - Confirmed (Latest Code Status on File) Date Activated Date Inactivated Comments 06/30/2024 5:11 AM 06/30/2024 1:[address] atus was ascertained in the following way: Code status discussion: discussion with patient To update the patient's code status, place a code status order. Do not modify or discontinue any currently active code status orders. Care Teams Brim Stitcher Relationship Specialty Start Date End Date Rita Miles PA [address] [place] [address] PCP - General 04/28/24
--- OUTSIDE RECORDS SUMMARY | 2024-08-07 03:47 | XMS_ITS | Patient Health Record ---
Author Organization [email or web address] Address [address] [facility] [id number] [address] Care Team Providers Care Sole Skiver Name Role Phone [facility] Primary Care Provid er Unavailable Amber Wheat Unavailable [phone] ALLERGIES No Known Allergies REASON FOR REFERRAL No Information MEDICATIONS Medication SIG (Take, Route, Fr equency, Duration) Notes Start Date End Date Status Twirla 120-30 MCG/24HR as directed Trans dermal Weekly for 84 days 02/12/2023 Active SOCIAL HISTORY Tobacco Use: Social History Observation Description Date Details (start date - stop date) Never Smoker NA - NA Sex Assigned At : Social History Observation Description Sex Assigned At Unknown Tobacco Use/Smoking Question Answer Notes Are you a nonsmoker Alcohol Screen Question Answer Notes Did you have a drink containing alcohol in the p ast year? No Points 0 Interpretation Negative Sexual History Question Answer Notes Had sex in the past 12 months (vaginal, oral, or anal)? Yes with Men only Use protection? No Last menstrual period 01/21/2023 PLAN OF TREATMENT No Information Insurance Providers Payer Name Payer Address Payer Phone Subscriber Number Group Number Insured Name Patient Relationship to Insured Coverage Start Date Coverage End Date ERIC [place] [address] [place] [address] [id number] Marixa Bass Self - patient is the insured
--- OUTSIDE RECORDS SUMMARY | 2024-08-07 03:47 | XMS_ITS ---
Author Organization [facility] Address [address] [place] [address] Care Team Providers Care Coke Oven Patcher Name Role Phone Rita Miles Primary Care Provider REASON FOR VISIT Crisis letter Social History Sex Assigned At : Social History Observation Description Sex Assigned At Female Encounters Encounter Location [place] [address] 07/30/2024 Rita Miles Plan Of Treatment Next Appt Details Provider Name:Rohan Barrios , 08/12/2024 01:20:00 PM, [address] [place] [address], [address], Progress Notes * Marixa BASSDOB: [birth year] (18 yo F)Acc No.[id number]:07/30/2024 Patient:?Marixa BASS :2005???Age:18 Y???Sex:Female Address:[address] [place] [id number] * true * Date:? Generated for Printi ng/Fajanetg/eTransmitting on:?08/07/2024 03:47 AM EST
--- OUTSIDE RECORDS SUMMARY | 2024-08-07 03:47 | XMS_ITS ---
Author Organization [facility] Address [address] [facility] [id number] [address] Care Team Providers Care Reconnaissance Man Name Role Phone [facility] Primary Care Provid er Unavailable Amber Wheat Unavailable [phone] Encounters Encounter Location Date Provider Diagnosis [address] [address] 05/01/2023 [facility] PLAN OF TREATMENT No Information
--- OUTSIDE RECORDS SUMMARY | 2024-08-07 03:47 | XMS_ITS | Encounter Summary ---
Author Organization [facility] Address [address] [place] [address] Care Team Providers Care Cellophane Bag Machine Operator Name Role Phone Unknown Primary Care Provider [phone] Pcp, No Primary Care Provider [facility] Only, [facility] Primary Care Provider Encounter Details Date Type Department Care Team (Late st Contact Info) Description 12/08/2019 Lab Requisition [facility] [address] [place] [phone] Blayne Connell PA-C [address] [place] [address] Social History Tobacco Use Types Packs/Day Years Used Date Smoking Tobacco: Never Assessed Sex and Gender Information Value Date Recorded Sex Assigned at Female 11/06/2022 8:29 PM EDT Gender Identity Female 11/06/2022 8:29 PM EDT Sexual Orientation Heterosexual (straight) 11/06 8:29 PM EDT documented as of this encounter Plan of Treatment Not on file documented as of this encounter Procedures Procedure Name Priority Date/Time Associated Diagnosis Comments (REPORT) SARS COV-2 RNA (COVID-19), QUAL Routine 12/08/2019 10:34 AM EDT documented in this encounter Results * SARS CoV-2 RNA (COVID-19), Qual (12/08/2019 10:34 AM EDT) SARS CoV 2 RNA, Qual Not Detected Not Detected 12/10/2019 6:11 AM EDT [facility] Comment: A Not Detected (negative) test result for this test means that SARS-CoV-2 RNA was not present in the specimen above the limit of detection. A negative result does not rule out the possibility of COVID-19 and should not be used as the sole basis for treatment or patient management decisions. ??If COVID-19 is still suspected, based on exposure history together with other clinical findings, re-testing should be considered in consultation with public health authorities. Laboratory test results should always be considered in the context of clinical observations and epidemiological data in making a final diagnosis and patient management decisions. ? Please review the 'Fact Sheets' and FDA authorized labeling available for health care providers and patients using the following websites: https://www.Venturesity.GroupTie/home/Covid-19/HCP/ QuestLDT/fact-sheet https://www.codebender/home/Covid-19/ Patients/QuestLDT/fact-sheet.html This test has been authorized by the FDA under an Emergency Use Authorization (EUA) for use by authorized laboratories. ? Due to the current public health emergency, [facility] is receiving a high volume of samples from a wide variety of swabs and media for COVID-19 testing. In order to serve patients during this public health crisis, samples from appropriate clinical sources are being tested. Negative test results derived from specimens received in non-commercially manufactured viral collection and transport media, or in media and sample collection kits not yet authorized by FDA for COVID-19 testing should be cautiously evaluated and the patient potentially subjected to extra precautions such as additional clinical monitoring, including collection of an additional specimen. Methodology: ??Nucleic Acid Amplification Test (NAAT) includes PCR or TMA ? Additional information about COVID-19 can be found at the [facility] website: www.Avancen MOD.GroupTie/Covid19 Test Performed at: [facility] [address] [place], [place] ??[address] Lemuel De La Torre M.D., Ph.D.,Director of Laboratories Microbiology Nasopharyngeal swab / Unknown 12/08/2019 10:34 AM EDT 12/08/2019 10:34 AM EDT Narrative PATRICE VILLA - 12/10/2019 6:11 AM EDT [facility] License number [id number] Blayne Connell PA-C BODY FLUIDS AND S TOOLS ORDERABLES PATRICE Dyer [facility] documented in this encounter Visit Diagnoses Not on filedocumented in this encounter Care Teams Cellophane Bag Machine Operator Relationship Specialty Start Date End Date Unknown Unknow Provider Address PCP - General 08/08/20 06/29/23 Pcp, No PCP - General General Medicine 06/30/23 09/27/23 Only, [facility] [address] [place] [address] PCP - General 09/28/23 documented as of this encounter
--- OUTSIDE RECORDS SUMMARY | 2024-08-07 03:47 | XMS_ITS | Patient Health Record ---
Author Organization [employer] [facility] Address [address] [place] [address] Care Team Providers Care Health Coordinator Name Role Phone Phoebe Suh Primary Care Provider Allergies No Known Allergies Reason For Referral No Information Medications Medication SIG (Take, Route, Frequency, Duration) Notes Start Date End Date Status Cyproheptadine HCl 4 MG 1 tablet Orally Twice a day for 30 day(s) 05/23/2021 Active Ibuprofen 200 MG 2 tablets with food or milk as needed Orally Three times a day for 1 dose 03/11/2018 Not-Taking Ferrous Sulfate 07/03/2019 Not -Taking Social History CRAFFT Question Answer Notes During the PAST 12 MONTHS, d id you drink any alcohol (more than a few sips)? (Do not count sips of alcohol taken during family or judaism events.) No During the PAST 12 MONTHS, did you smoke any mar ijuana or hashish? No During the PAST 12 MONTHS, d id you use anything else to get high? ( anything else includes illegal drugs, ilvy-yhq-vmkqgbo and prescription drugs, and things that you sniff or ramírez ) No Have you ever ridden in a [place] driven by someone (including yourself) who was high or had been using alcohol or drugs? No Problems Problem Type SNOMED Code ICD Code Onset Dates Problem Status W/U Status Risk Notes Problem 70672048 Generalized anxiety disorder (F41.1) Active confirmed Problem 889893138 Episodic tension-type headache, not intractable (G44.219) Active confirmed Problem 844124548 Chronic tension-type headache, not intractable (G44.229) Active confirmed Problem 47742123 Other chronic pain (G89.29) Active confirmed Problem 07148886 Constipation, unspecified constipation type (K59.00) Active confirmed Problem 00583706 Amenorrhea (N91.2) Active confirmed Problem Problem behavior (980084245) Behavior concern (R46.89) Active confirmed Problem 87626949 Stress (F43.9) Active confirmed Problem 225312933 Migraine without aura and without status migrainosus, not intractable (G43.009) Active confirmed Problem 621434894 Acute non intractable tension-type headache (G44.209) Active confirmed Problem 058191650 Iron deficiency anemia secondary to inadequate dietary iron intake (D50.8) Active confirmed Problem Mild depression (869836505) Mild depression (F32.0) Active confirmed Problem 082554219 Pediatric obesity due to excess calories without serious comorbidity, unspecified BMI (E66.09) Active confirmed Problem 44440015 Oligomenorrhea, unspecified type (N91.5) Active confirmed Problem Parent/child conflict (finding) (61858359) Parent-child conflict (Z62.820) Active confirmed Plan Of Treatment No Information Insurance Providers Payer Name Payer Address Payer Phone Subscriber Number Group Number Insured Name Patient Relationship to Insured Coverage Start Date Coverage End Date ERIC [place] [address] [place] [id number] Marixa Bass Self - patient is the insured Medical (General) History Medical History History ICD Code LOC Anxiety JAREK Obesity Surgical History Surgery Date(Month/Year)
--- OUTSIDE RECORDS SUMMARY | 2024-08-07 03:47 | XMS_ITS ---
Author Organization [employer] Address [address] [facility] [id number] [address] Care Team Providers Care Tar And Ammonia Pump Operator Name Role Phone [facility] Primary Care Provid er Unavailable Amber Wheat [phone] REASON FOR VISIT bc patch F/U Encounters Encounter Location Date Provider Diagnosis [facility] Facility [address] [place] [address] 05/15/2023 Amber Wheat PLAN OF TREATMENT No Information
--- OUTSIDE RECORDS SUMMARY | 2024-08-07 03:47 | XMS_ITS ---
Author Organization [facility] Address [address] [place] [address] Care Team Providers Care Upholsterer Assembly Line Name Role Phone Rita Miles Primary Care Provider Roman Lino Unavailable [phone] REASON FOR VISIT 08/05- not logged into Zoom. Not able to reach on either phone number. LM on VM for first number Unable to leave a message on second number . MROY\r\nInitial appt- DR // Yashira confirmed 08/03/24 4:07pm - Yashira created at 08/05/24 14:47 Marixa Bass 0 Social History Sex Assigned At : Social History Observation Description Sex Assigned At Female Encounters Encounter [place] [address] 08/05/2024 Roman Lino Plan Of Treatment Next Appt Details Provider Name:Rohan Barrios , 08/12/2024 01:20:00 PM, [address] [place] [address], [address], Progress Notes * Marixa BASSDOB: [birth year] (18 yo F)Acc No.[id number]:08/05/2024 Progress Notes Patient:?Marixa BASS Provider:?Roman Lino RD :2005???Age:18 Y???Sex:Female D ate:08/05/2024 External Visit ID:[id number] Address:[address] [place] [address] Pcp:Rita Miles Subjective: * Chief Complaints: * ???1. 08/05- not logged into Z oom. Not able to reach on either phone number. LM on for first number Unable to leave a message on second number . MROY\r\nInitial appt- DR // Yashira confirmed 08/03/24 4:07pm - Yashira created at 08/05/24 14:47 Dalianice Shelia 0. * Medical History:? Objective: * Vitals:? * Physical Examination:? Assessment: Plan: * Treatment: * Billing Information: * Visit Code:? * Procedure Codes:? * Electronic signature of Reginaldo Lino RD on 08/07/2024 at 03:47 AM EST Sign off status: Pending * Provider:?Roman Lino RD Date:?2024 Generated for Jojo stevens/Tom/eTransmitting on:?08/07/2024 03:47 AM EST
--- OUTSIDE RECORDS SUMMARY | 2024-08-07 03:47 | XMS_ITS | Clinical Summary ---
Author Organization [facility] Address [address] [place] [address] Care Team Providers Care Tanker Service Attendant Name Role Phone Only, [facility] Primary Care Provider Allergies No known active allergies Medications Medication Sig Dispensed Refills Start Date End Date Status ferrous Sulfate dried (Slow Iron) 160 (50 Fe) MG Tab CR Take 1 tablet (160 mg total) by mouth every morning with breakfast. 30 tablet 01/21/2023 Active senna (SENOKOT) 8.6 MG Tab tablet Take 2 tablets by mouth 2 (two) times a day. Take with eight ounces of water 60 tablet 01/21/2023 Active famotidine (PEPCID) 40 MG tabletIndications:Scr eening procedure Take 1 tablet (40 mg total) by mouth nightly. 09/21/2023 Active docusate sodium (COLACE) 100 MG capsuleIndications:Co nstipation, unspecified constipation type Take 1 capsule (100 mg total) by mouth 2 (two) times a day. 60 capsule 3 10/21/2023 Active polyethylene glycol (miraLAx) 17 g packetIndications:Con stipation, unspecified constipation type Take 1 packet (17 g total) by mouth daily. 14 packet 1 10/21/2023 Active Family History Relation Name Status Comments Father Alive Mother Alive Social History Tobacco Use Types Packs/Day Years Used Date Smoking Tobacco: Never Smokeless Tobacco: Never Alcohol Use Standard Drinks/Week Comments Never 0 (1 standard drink = 0.6 oz pur e alcohol) PHQ-2 Answer Date Recorded PHQ-2 Total Score 0 12/31/2023 Physical Activity Answer Date Recorded On average, how many days pe r week do you engage in moderate to strenuous exercise (like a brisk walk)? 1 day 12/31/2023 On average, how many minutes do you exercise per day at this level? 20 min 12/31/2023 Sex and Gender Information Value Date Recorded Sex Assigned at Female 11/06/2022 8:29 PM EDT Gender Identity Female 11/06/2022 8:29 PM EDT Sexual Orientation Heterosexual (straight) 11/06 8:29 PM EDT Last Filed Vital Signs Vital Sign Reading Time Taken Comments Blood Pressure 126/63 10/21/2023 7:00 AM EDT Pulse 92 10/21/2023 7:00 AM EDT Temperature 36.7 ??C (98 ??F) 09/28/2023 10:32 PM EDT Respiratory Rate 18 09/29/2023 1:08 AM EDT Oxygen Saturation 100% 09/29/2023 1:08 AM EDT Inhaled Oxygen Concentration - - Weight 119 kg (263 lb 6.4 oz) 10/21/2023 7:00 AM EDT Height 165.1 cm (5' 5 ) 10/21/2023 7:00 AM EDT Body Mass Index 43.83 10/21/2023 7:00 AM EDT Plan of Treatment Health Maintenance Due Date Last Done Comments Hepatitis C Virus Screening 2005 HIV Screening 10/16/2016 HPV Vaccines (1 - 3-dose series) 10/16/2018 DTaP/Tdap/Td Vaccines (1 - Tdap) 10/16/2022 Hepatitis B Vaccines (1 of 3 - 19+ 3-dose series) 10/16/2022 Influenza Vaccine 01/02/2024 02/26/2023, , 01/23/2021, Additional history exists COVID-19 Vaccine ( season) 2024 09/15/2021, 10/30/2020, 10/09/2020 Influenza Vaccine Discontinued 02/26/2023, , 01/23/2021, Additional history exists Pneumococcal Vaccine: Pediatric (0-5 Years) and At-Risk Patients (6 to 49 Years) Aged Out No longer eligible based on patient's age to complete this topic Care Teams Tanker Service Attendant Relationship Specialty Start Date End Date Only, [facility] [address] [place] [address] PCP - General 09/28/23
[2024-08-07 03:48] LABS: Alanine Aminotransferase 20 U/L (0-31); Albumin Level 4.2 g/dL (3.5-5.0); Alkaline Phosphatase 78 U/L (39-117); Anion Gap 14 (12-20); Aspartate Amino Transferase 26 U/L (5-31); Bilirubin Direct < 0.2 mg/dL (0.0-0.5); Bilirubin Total 0.2 mg/dL (0.0-1.0); Blood Urea Nitrogen 12 mg/dL (9-16); Calcium 9.1 mg/dL (8.4-10.2); Carbon Dioxide 24 mmol/L (22-29); Chloride 105 mmol/L (96-108); Creatinine Clr Calc Pharmacy 170.1; Estimated Glomerular Filt Rate > 60; Glucose Random 104 mg/dL (60-115); Lipase 10 U/L (8-78); Potassium 3.6 mmol/L (3.3-5.1); Sodium 139 mmol/L (135-145); Total Protein 7.7 g/dL (6.5-8.0)
[2024-08-07 03:59] LABS: COVID-19 Test Negative (Negative); IDNOW Serial# 55D5AD1C; IDNOW Serial# 58CA691E
[2024-08-07 04:00] LABS: Influenza A Negative (Negative); Influenza B2 Negative (Negative)
--- NOTE | 2024-08-07 05:05 | ED_ITS ---
HPI - General Adult General Chief complaint: Abdominal Pain Stated complaint: resp symptoms Time Seen by Provider: 08/07/24 04:53 Source: patient Mode of arrival: ambulatory Limitations: no limitations History of Present Illness ED Provider: Dr. Madyson Quiles HPI narrative: Patient comes to the emergency room complaining of left-sided headache, nausea and photosensitivity. Patient states that she does tried taking multiple doses of ibuprofen without any significant relief, last dose 12 clothes hours ago. Patient states that she has no chest pain or abdominal pain, no vomiting or diarrhea. Patient states that when she was a child, she was diagnosed with migraine headaches but has not had 1 in years. Patient reported also dysuria with no hematuria, denies suprapubic or flank pain Related Data Previous Rx's ?Medication ?Instructions ?Recorded albuterol sulfate 90 mcg/actuation 2 puff inhalation Q4-6H PRN 05/25/24 aerosol inhaler shortness of breath or wheezing #8.5 grams prednisone 50 mg tablet 50 mg PO DAILY #5 tabs 05/25/24 albuterol sulfate 90 mcg/actuation 2 inh inhalation Q4-6H PRN 06/04/24 breath activated powder inhaler shortness of breath or wheezing #1 ea prednisone 20 mg tablet 20 mg PO BID #10 tabs 06/04/24 doxycycline hyclate 100 mg tablet 100 mg PO Q12H 5 days #10 tabs 06/28/24 prednisone 20 mg tablet 60 mg (3 x 20 mg) PO DAILY 5 days 06/28/24 #15 tabs ketorolac 10 mg tablet 10 mg PO Q8H PRN pain #10 tabs 08/07/24 metoclopramide HCl 5 mg tablet 5 mg PO DAILY PRN nausea and 08/07/24 (Reglan) vomiting #10 tabs Allergies Allergy/AdvReac Type Severity Reaction Status Date / Time No Known Allergies Allergy Verified 08/07/24 03:08 Review of Systems 2 Review of Systems: Constitutional : No Weight loss, No Fever, No Chills, No Night Sweats, No Fatigue, No Malaise ENT/Mouth : No Hearing loss, No Ear Pain, No Nasal Congestion, No Sinus Pain, No Hoarseness, No sore throat, No Rhinorrhea, No Swallowing Difficulty Eyes: No Eye Pain, No Swelling, No Redness, No Foreign Body, No Discharge, No Vision Changes Cardiovascular : No Chest Pain, No SOB, No Dyspnea on Exertion, No Orthopnea, No Edema, No Palpitations Respiratory : No Cough, No Sputum, No Wheezing, No Smoke Exposure, No Dyspnea Gastrointestinal : Complaining of Nausea, No Vomiting, No Diarrhea, No Constipation, No abdominal Pain, No Hematochezia, No Melena Genitourinary : no irregular bleeding, No Dysuria, No Urinary Frequency, No Hematuria, No Urinary Incontinence, No Urgency, No Flank Pain, No Urinary Flow Changes, No Hesitancy Musculoskeletal : No joint pain, No Myalgias, No Joint Swelling Skin : No Skin Lesions, No rash Neuro : No Weakness, No Numbness, No Paresthesias, No Loss of Consciousness, No Dizziness, complaining of a migraine Headache Psych : No Anxiety/Panic, No Depression, No SI/HI/AH/VH, No Social Issues, Heme/Lymph: No Bruising, No Bleeding,No Lymphadenopathy Endocrine : No Polyuria, No Polydipsia, No Temperature Intolerance [facility] Past Medical History Medical History Asthma Social History Social History Alcohol intake: never Advance Directives: No Physical Exam ED Vital Signs: Vital Signs - 24 hr 08/07/24 03:02 Temperature 98.3 F Pulse Rate 115 H Respiratory Rate 16 Blood Pressure 121/77 Pulse Oximetry 98 Oxygen Delivery Method Room Air BMI result Body Mass Index 49.6 Const Other: Appearance: Alert. Oriented X3. No acute distress. Well-appearing Eyes: Pupils equal, round and reactive to light. Does not seem to have photophobia ENT: Pharynx normal. Neck: Normal inspection. Neck supple. No lymph nodes noted. No crepitus. No neck stiffness, normal range of motion CVS: Normal heart rate and rhythm. Pulses normal. Normal S1 and S2 Respiratory: No respiratory distress. Breath sounds normal. No Wheezing. No rales Abdomen: Soft and nontender. No rigidity. No distention. Skin: Skin warm and dry. Normal skin color. Normal skin turgor. Extremities: No lower extremity edema. No Lacerations. No Rash Neuro: Oriented X 3. No motor deficit. No sensory deficit. Moving all extremities. No slurred speech. CN 2 through 12 grossly intact Psych: calm, cooperative, normal affect Course Course Course Narrative: For symptomatic treatment, patient receiving IV fluids, Zofran, ketorolac and Benadryl Medical Decision Making Medical Decision Making [facility] Narrative: My interpretation of labs: Patient's hematology at baseline, normal chemistry, urinalysis negative for UTI Patient feeling better after IV medication for migraine headache, patient report discharge Differential Diagnosis Differential Diagnoses: The differential diagnosis associated with the presentation includes (Tension headache, migraine headache, viral syndrome) Admission/Observation Consideration of admission/observation: Escalation of care including admission/observation considered (Given patient's amount of discomfort on arrival and duration of symptoms, observation was considered) Lab Data 08/07/24 03:20 08/07/24 03:20 Labs: Lab Results 08/07/24 08/07/24 Range/Units 03:20 03:27 WBC 9.9 (4.8-10.8) X10*3/uL RBC 5.24 (4.20-5.50) X10*6/uL Hgb 9.9 L (12.0-16.0) g/dl Hct 33.6 L (37.0-47.0) % MCV 64.1 L (80.0-98.0) fL MCH 18.9 L (27.0-33.0) pg MCHC 29.5 L (31.0-35.0) g/dl RDW 20.7 H (11.0-16.0) % Plt Count 387 (160-400) X10*3/uL MPV 9.8 (9.4-12.3) fL Absolute Nucleated RBC 0.000 (0.0-0.012) X10*3/uL Nucleated RBC % (auto) 0.0 (0.0-0.2) /100WBC Sodium 139 (135-145) mmol/L Potassium 3.6 (3.3-5.1) mmol/L Chloride 105 (96-108) mmol/L Carbon Dioxide 24 (22-29) mmol/L Anion Gap 14 (12-20) BUN 12 (9-16) mg/dL Creatinine 0.71 (0.5-1.4) mg/dL Estim Creat Clear Calc 170.1 Estimated GFR > 60 Random Glucose 104 (60-115) mg/dL Calcium 9.1 (8.4-10.2) mg/dL Total Bilirubin 0.2 (0.0-1.0) mg/dL Direct Bilirubin < 0.2 (0.0-0.5) mg/dL AST 26 (5-31) U/L ALT 20 (0-31) U/L Alkaline Phosphatase 78 (39-117) U/L Total Protein 7.7 (6.5-8.0) g/dL Albumin 4.2 (3.5-5.0) g/dL Lipase 10 (8-78) U/L Urine Color Yellow Urine Appearance Clear Urine pH 6.0 (5.0-9.0) Ur Specific [place] 1.025 (1.005-1.025) Urine Protein Trace (Neg-Trace) mg/dL Urine Glucose (UA) Negative (Negative) mg/dL Urine Ketones 15 (Negative) mg/dL Urine Blood Negative (Negative) Urine Nitrite Negative (Negative) Ur Leukocyte Esterase Negative (Negative) Urine Test NEGATIVE (NEGATIVE) COVID-19 ([facility]A) Negative (Negative) COVID-19 Clin Com See Note Influenza Type A ([place]) Negative (Negative) Influenza Type B ([place]) Negative (Negative) Influenza A & B Note See Note Critical Care Time Critical Care Time Critical Care Time: Yes Total Critical Care Time: 45 Attestation: I have personally provided critical care time. Time includes review of lab data, radiology results, discussion with consultants, and monitoring for potential decompensation. Intervention performed as documented. Discharge Plan Discharge Clinical Impression: Migraine Patient Disposition: Home, Self-Care Instructions: Migraine Headache (ED) Additional Instructions: Please follow-up with your primary care physician tomorrow. If you have any worsening or new symptoms, please return to the emergency room or call 911 Prescriptions: New ketorolac 10 mg tablet 10 mg PO Q8H PRN (Reason: pain) Qty: 10 0RF metoclopramide HCl [Reglan] 5 mg tablet 5 mg PO DAILY PRN (Reason: nausea and vomiting) Qty: 10 0RF Rx Instructions: Take together with ketorolac p.r.n. migraine headache No Action prednisone 50 mg tablet 50 mg PO DAILY Qty: 5 0RF albuterol sulfate 90 mcg/actuation HFA aerosol inhaler 2 puff inhalation Q4-6H PRN (Reason: shortness of breath or wheezing) Qty: 8.5 0RF prednisone 20 mg tablet 20 mg PO BID Qty: 10 0RF albuterol sulfate 90 mcg/actuation aerosol powdr breath activated 2 inh inhalation Q4-6H PRN (Reason: shortness of breath or wheezing) Qty: 1 0RF prednisone 20 mg tablet 60 mg PO DAILY 5 Days Qty: 15 0RF doxycycline hyclate 100 mg tablet 100 mg PO Q12H 5 Days Qty: 10 0RF Stand Alone Forms: Work/School Release Print Language: Montenegrin
[2024-08-07] MEDS: Ketorolac Tromethamine 60 MG/2 ML VIAL IM (06:15)
[2024-08-07] MEDS: Metoclopramide HCl 10 MG/2 ML VIAL 5 MG IM (06:15)
[2024-08-07 06:42] VITALS: BP 124/68; PULSE 74; RESP 18; TEMP 36.8; O2SAT 97
== END 2024-08-07 06:43 | disposition home or self-care (01) ==
PROVIDERS: Emergency Provider Emergency Medicine
DX: G43.909 Migraine, unspecified, not intractable, without status migrainosus (principal); R30.0 Dysuria; J45.909 Unspecified asthma, uncomplicated
CPT/HCPCS: 36415; 80053; 81003; 81025; 82248; 83690; 85027; 87502; 87635; 96372; 99284; J1885; J2765

== ENCOUNTER 2024-10-08 16:51 | Emergency (ER) | payer MEDICAID, SELFPAY ==
--- NOTE | 2024-10-08 16:57 | ECG_ITS ---
Test Reason : chest pain Blood Pressure : */* mmHG Vent. Rate : 104 BPM Atrial Rate : 104 BPM P-R Int : 156 ms QRS Dur : 78 ms QT Int : 330 ms P-R-T Axes : 29 0 -6 degrees QTcB Int : 433 ms Sinus tachycardia Minimal voltage criteria for LVH, may be normal variant ( R in aVL ) Possible Anterior infarct , age undetermined Abnormal ECG When compared with ECG of 25-May-2024 02:27, Borderline criteria for Anterior infarct are now Present Inverted T waves have replaced nonspecific T wave abnormality in Inferior leads T wave amplitude has decreased in Anterior leads Referred By: Isa Omer Electronically Signed By: JOSÉ LUIS RITTER
[2024-10-08 17:00] VITALS: BP 128/77; PULSE 105; RESP 18; TEMP 36.4; O2SAT 97; BMI 49.2
--- NOTE | 2024-10-08 17:00 | ED.GENADULT ---
HPI - General Adult General Chief complaint: General Medical Stated complaint: cp, coughing Time Seen by Provider: 10/08/24 19:39 Source: patient Mode of arrival: ambulatory Limitations: no limitations History of Present Illness HPI narrative: 18 yo female with PMHx of asthma presents to the ED due to chest pain. 2 days ago (10/06) ate something spicy and felt chest was burning and stabbing, sharp sensation. She states she is still experiencing a burning and stabbing when swallowing. She states she vomited this morning after eating. Denies cough, diarrhea, bloody emesis. MD complaint: chest pain Onset (ago): day(s) Location: chest Radiation: non-radiation Severity: mild Quality: burning and stabbing Pain Consistency: constant Relieving factors: none Exacerbating factors: none Associated symptoms: denies other symptoms Treatments prior to arrival: none Related Data Previous Rx's ?Medication ?Instructions ?Recorded albuterol sulfate 90 mcg/actuation 2 puff inhalation Q4-6H PRN 05/25/24 aerosol inhaler shortness of breath or wheezing #8.5 grams prednisone 50 mg tablet 50 mg PO DAILY #5 tabs 05/25/24 albuterol sulfate 90 mcg/actuation 2 inh inhalation Q4-6H PRN 06/04/24 breath activated powder inhaler shortness of breath or wheezing #1 ea prednisone 20 mg tablet 20 mg PO BID #10 tabs 06/04/24 doxycycline hyclate 100 mg tablet 100 mg PO Q12H 5 days #10 tabs 06/28/24 prednisone 20 mg tablet 60 mg (3 x 20 mg) PO DAILY 5 days 06/28/24 #15 tabs ketorolac 10 mg tablet 10 mg PO Q8H PRN pain #10 tabs 08/07/24 metoclopramide HCl 5 mg tablet 5 mg PO DAILY PRN nausea and 08/07/24 (Reglan) vomiting #10 tabs sucralfate 1 gram tablet 1 g PO TID #21 tabs 10/08/24 Allergies Allergy/AdvReac Type Severity Reaction Status Date / Time No Known Allergies Allergy Verified 10/08/24 17:01 Review of Systems Review of Systems: As per HPI Yes all other systems are reviewed and are negative PMFSH Past Medical History Medical History Asthma Social History Social History Alcohol intake: never Advance Directives: No Advance Directives Information Provided: No Physical Exam ED Vital Signs: Vital Signs - 24 hr 10/08/24 17:00 Temperature 97.6 F Pulse Rate 105 H Respiratory Rate 18 Blood Pressure 128/77 Pulse Oximetry 97 Oxygen Delivery Method Room Air BMI result Body Mass Index 49.2 Vital signs have been reviewed and appear to be correct. Blood pressure normal. Heart rate normal. Respiratory rate normal. Temperature normal. Oxygen saturation normal. Const General: cooperative, healthy appearing and no acute distress Orientation/consciousness: oriented to person, oriented to place, oriented to time and patient oriented x3 Limitations: no limitations HENMT Head: Yes normocephalic and Yes atraumatic Ears: external ears normal General nose exam: Normal external nose present Face and sinus: Yes face symmetric Mouth: oropharynx normal and moist mucous membranes Throat: Yes uvula midline Eyes Pupils: Equal, round and reactive pupils present Neck Neck: Yes normal visual inspection and Yes supple Resp Effort & Inspection: normal respiratory effort and able to speak in complete sentences Auscultation: clear to auscultation bilaterally Cardio Rate: regular rate Rhythm: regular rhythm Heart sounds: S1 normal heart sound present and S2 normal heart sound present GI Palpation (GI): Soft to palpation and nontender Auscultation: normoactive bowel sounds General: Yes no CVA tenderness Back/Spine/Pelvis Back: no CVA tenderness Skin General skin exam: elasticity normal and turgor normal Neuro General: oriented to person, oriented to place, oriented to time, patient oriented x3, moves all extremities, no focal motor deficits and CN's II-XI intact bilaterally Cranial nerves: Yes Equal, round and reactive pupils present Cognition (Neuro): normal cognition Extrem General: Yes full ROM, Yes no pedal edema and Yes no calf tenderness Psych Mental Status: mental status grossly normal Affect: normal affect Thought process: Normal thought process present Course Course Course Narrative: This is a rapid medical exam performed by Cynthia Omer NP: Additional HPI, ROS, PE not included below will be deferred to primary provider. 18 yo female with PMHx of asthma presents to the ED due to chest pain. 2 days ago (10/06) ate something spicy and felt chest was burning and stabbing, sharp sensation. She states she is still experiencing a burning and stabbing when swallowing. She states she vomited this morning after eating. Denies cough, diarrhea, bloody emesis. PE: A&O x3, no active vomiting in triage. Plan: Labs, EKG, HCG quant Medical Decision Making Medical Decision Making [facility] Narrative: 18 yo female with PMHx of asthma presents to the ED due to chest pain. 2 days ago (10/06) ate something spicy and felt chest was burning and stabbing, sharp sensation. She states she is still experiencing a burning and stabbing when swallowing. She states she vomited this morning after eating. Denies cough, diarrhea, bloody emesis. On physical exam patient is in no acute distress, is non diaphoretic, vital signs within normal limits, EKG sinus tach without ST elevations/depressions T wave abnormalities, do not suspect ACS. Labs unremarkable. Differential includes GERD, gastritis, peptic ulcer disease. Will start on famotidine and refer to GI, and encourage follow up with PCP Differential Diagnosis Per [facility] Admission/Observation Consideration of admission/observation: Escalation of care including admission/observation considered Patient would have been admitted to the hospital had their work up had any findings where hospital admission was appropriate and their clinical presentation warranted hospital admission. Lab Data [facility] Lab Attestation statement: I reviewed the patient's lab results. 10/08/24 17:18 10/08/24 17:18 Labs: Lab Results 10/08/24 Range/Units 17:18 WBC 9.5 (4.8-10.8) X10*3/uL RBC 5.24 (4.20-5.50) X10*6/uL Hgb 10.0 L (12.0-16.0) g/dl Hct 33.3 L (37.0-47.0) % MCV 63.5 L (80.0-98.0) fL MCH 19.1 L (27.0-33.0) pg MCHC 30.0 L (31.0-35.0) g/dl RDW 19.4 H (11.0-16.0) % Plt Count 434 H (160-400) X10*3/uL MPV 9.8 (9.4-12.3) fL Immature Gran % (Auto) 0.6 H (0.0-0.4) % Neut % (Auto) 64.7 (45-73) % Lymph % (Auto) 22.0 (20-40) % [place] % (Auto) 6.9 (2-11) % Eos % (Auto) 5.3 H (0-4) % Baso % (Auto) 0.5 (0-2) % Lymph # (Auto) 2.1 (1.2-4.9) X10*3/uL [place] # (Auto) 0.7 (0.1-1.2) X10*3/uL Eos # (Auto) 0.5 H (0.0-0.4) X10*3/uL Baso # (Auto) 0.1 (0.0-0.2) X10*3/uL Abs Immat Gran (auto) 0.06 H (0.00-0.03) X10*3/uL Absolute Neuts (auto) 6.1 (2.0-8.3) x10*3/uL Absolute Nucleated RBC 0.000 (0.0-0.012) X10*3/uL Nucleated RBC % (auto) 0.0 (0.0-0.2) /100WBC Sodium 138 (135-145) mmol/L Potassium 4.2 (3.3-5.1) mmol/L Chloride 105 (96-108) mmol/L Carbon Dioxide 24 (22-29) mmol/L Anion Gap 13 (12-20) BUN 8 L (9-16) mg/dL Creatinine 0.58 (0.5-1.4) mg/dL Estim Creat Clear Calc 214.6 Estimated GFR > 60 Random Glucose 99 (60-115) mg/dL Calcium 9.4 (8.4-10.2) mg/dL Total Bilirubin 0.2 (0.0-1.0) mg/dL AST 24 (5-31) U/L ALT 16 (0-31) U/L Alkaline Phosphatase 93 (39-117) U/L Total Protein 7.4 (6.5-8.0) g/dL Albumin 4.1 (3.5-5.0) g/dL Lipase 13 (8-78) U/L Beta HCG, Quant < 2 mIU/mL Independent Interpretation I performed an independent interpretation of an: EKG (sinus tachycardia, rate 104, normal ID interval and QTC) External Record Review External record reviewed: Inpatient record, Office record and Outpatient record Prescription Management I considered prescription management with: Other Discharge Plan Discharge Clinical Impression: Acute epigastric pain Patient Disposition: Home, Self-Care Instructions: GERD (Gastroesophageal Reflux Disease) (ED), Epigastric Pain (ED) Additional Instructions: You have been evaluated in the emergency department today for abdominal pain. Your evaluation did not show evidence of medical conditions requiring emergent intervention at this time. Please schedule an appointment with your primary care physician. Return to the emergency department if you experience worsening or uncontrolled pain, fevers 100.4? F or greater, recurrent vomiting, inability to tolerate food or fluids by mouth, bloody stools or vomit, black or tarry stools, or any other concerning symptoms. You will be prescribed sucralfate which is a medication that will coat the lining of the stomach which can control gastric acid production that is likely causing your symptoms. If symptoms persist within the next 1-2 weeks please follow up with gastoenterology. You need to call the office for follow up, as they will not call you. Prescriptions: New sucralfate 1 gram tablet 1 g PO TID Qty: 21 0RF Rx Instructions: take 30 minutes prior to eating No Action prednisone 50 mg tablet 50 mg PO DAILY Qty: 5 0RF albuterol sulfate 90 mcg/actuation HFA aerosol inhaler 2 puff inhalation Q4-6H PRN (Reason: shortness of breath or wheezing) Qty: 8.5 0RF prednisone 20 mg tablet 20 mg PO BID Qty: 10 0RF albuterol sulfate 90 mcg/actuation aerosol powdr breath activated 2 inh inhalation Q4-6H PRN (Reason: shortness of breath or wheezing) Qty: 1 0RF prednisone 20 mg tablet 60 mg PO DAILY 5 Days Qty: 15 0RF doxycycline hyclate 100 mg tablet 100 mg PO Q12H 5 Days Qty: 10 0RF ketorolac 10 mg tablet 10 mg PO Q8H PRN (Reason: pain) Qty: 10 0RF metoclopramide HCl [Reglan] 5 mg tablet 5 mg PO DAILY PRN (Reason: nausea and vomiting) Qty: 10 0RF Rx Instructions: Take together with ketorolac p.r.n. migraine headache Referrals: [facility] [Provider Group] - 1 week Print Language: Barbadian
[2024-10-08 17:28] LABS: MANUAL DIFF FLAG NO
[2024-10-08 17:52] LABS: Basophils Absolute Auto 0.1 X10*3/uL (0.0-0.2); Basophils Percent Auto 0.5 % (0-2); Eosinophils Absolute Auto 0.5 X10*3/uL (0.0-0.4); Eosinophils Percent Auto 5.3 % (0-4); Hematocrit 33.3 % (37.0-47.0); Imm Gran Abs Auto 0.06 X10*3/uL (0.00-0.03); Imm Gran Pct Auto 0.6 % (0.0-0.4); Lymphocytes Absolute Auto 2.1 X10*3/uL (1.2-4.9); Mean Corpuscular Hemoglobin 19.1 pg (27.0-33.0); Mean Platelet Volume 9.8 fL (9.4-12.3); Monocytes Absolute Auto 0.7 X10*3/uL (0.1-1.2); Monocytes Percent Auto 6.9 % (2-11); Neutrophils Absolute Auto 6.1 x10*3/uL (2.0-8.3); Neutrophils Percent Auto 64.7 % (45-73); Platelet Count 434 X10*3/uL (160-400); Red Blood Count 5.24 X10*6/uL (4.20-5.50); Red Cell Distribution Width 19.4 % (11.0-16.0); White Blood Count 9.5 X10*3/uL (4.8-10.8)
[2024-10-08 17:54] LABS: Alanine Aminotransferase 16 U/L (0-31); Albumin Level 4.1 g/dL (3.5-5.0); Alkaline Phosphatase 93 U/L (39-117); Anion Gap 13 (12-20); Aspartate Amino Transferase 24 U/L (5-31); Bilirubin Total 0.2 mg/dL (0.0-1.0); Blood Urea Nitrogen 8 mg/dL (9-16); Calcium 9.4 mg/dL (8.4-10.2); Carbon Dioxide 24 mmol/L (22-29); Chloride 105 mmol/L (96-108); Creatinine Clr Calc Pharmacy 214.6; Estimated Glomerular Filt Rate > 60; Glucose Random 99 mg/dL (60-115); Lipase 13 U/L (8-78); Potassium 4.2 mmol/L (3.3-5.1); Sodium 138 mmol/L (135-145); Total Protein 7.4 g/dL (6.5-8.0)
[2024-10-08 17:58] LABS: HCG Quantitative < 2 mIU/mL
[2024-10-08 18:16] LABS: Mean Corpuscular Volume 63.5 fL (80.0-98.0)
[2024-10-08 20:10] VITALS: BP 128/77; PULSE 105; RESP 18; TEMP 36.4; O2SAT 97
--- OUTSIDE RECORDS SUMMARY | 2024-10-08 20:10 | XMS_ITS ---
Author Organization [facility] Address [address] [place] [phone] Care Team Providers Care Theatrical Trouper Name Role Phone Rita Miles Primary Care Provider Rohan Barrios [phone] REASON FOR VISIT Per internal referral see te dated 2\27 - MB Social History Sex Assigned At : Social History Observation Description Sex Assigned At Female Encounters Encounter Location [place] [address] 08/12/2024 Rohan Barrios Plan Of Treatment No Information Progress Notes * Marixa BASSDOB: [birth year] (18 yo F)Acc No.[id number]:08/12/2024 Patient:?Marixa BASS Provider:?Rohan Barrios DC :2005???Age:18 Y???Sex:Female D ate:08/12/2024 External Visit ID:[id number] Address:[address] [place], [place] [id number] Pcp:Rita Miles Subjective: * Chief Complaints: * ???1. Per internal referral see te dated 2\27 - MB. * Medical History:? Objective: * Vitals:? Assessment: Plan: * Treatment: * Billing Information: * Visit Code:? * Procedure Codes:? * Electronic signature of Rohan Barrios DC on 10/08/2024 at 08:10 PM EDT Sign off status: Pending * Provider:?Rohan Barrios DC Date:?08/12 Generated for Jojo stevens/Tom/Maddy on:?10/08/2024 08:10 PM EDT
--- OUTSIDE RECORDS SUMMARY | 2024-10-08 20:10 | XMS_ITS ---
Author Organization [facility] Address [address] [facility] [id number] [address] Care Team Providers Care Paint Formulator Name Role Phone [facility] Primary Care Provid er Unavailable Amber Wheat Unavailable [phone] Encounters Encounter Location Date Provider Diagnosis [address] [id number] 05/01/2023 [facility] PLAN OF TREATMENT No Information
--- OUTSIDE RECORDS SUMMARY | 2024-10-08 20:10 | XMS_ITS | Encounter Summary ---
Author Organization [facility] Address [address] [place] [address] Care Team Providers Care Log Yard Derrick Operator Name Role Phone Unknown Primary Care Provider [phone] Pcp, No [facility] Primary Care Provider Encounter Details Date Type Department Care Team (Late st Contact Info) Description 12/08/2019 Lab Requisition [facility] [address] [place] [id number] Blayne Connell PA-C [address] [place] [address] Social History Tobacco Use Types Packs/Day Years Used Date Smoking Tobacco: Never Assessed Comments Unknown Sex and Gender Information Value Date Recorded Sex Assigned at Female 11/06/2022 8:29 PM EDT Legal Sex Female 2:17 PM EDT Gender Identity Female 11/06/2022 8:29 [...] Not Detected Not Detected 12/10/2019 6:11 AM [facility] Comment: A Not Detected (negative) test result [...] providers and patients using the following websites: https://www.[employer].KIT digital/home/Covid-19/HCP/ QuestLDT/fact-sheet https://www.[employer]KIT digital/home/Covid-19/ Patients/QuestLDT/fact-sheet.html This test has been authorized by the FDA under an Emergency Use Authorization (EUA) for use by authorized laboratories. ? Due to the current public health emergency, [facility] is receiving a high volume of samples [...] about COVID-19 can be found at the [facility] website: www.[employer].KIT digital/Covid19 Test Performed at: [facility] [address] [place], [place] ??[phone] Lemuel De La Torre M.D., Ph.D.,Director of Laboratories Microbiology Nasopharyngeal swab / Unknown 12/08/2019 10:34 AM EDT 12/08/2019 10:34 AM EDT Narrative PATRICE VILLA - 12/10/2019 6:11 AM EDT [facility] License number [id number] Blayne Connell PA-C BODY FLUIDS AND STOOLS OR DERABLES Final Result PATRICE VILLA documented in this encounter Visit Diagnoses Not on filedocumented in this encounter Care Teams Log Yard Derrick Operator Relationship Specialty Start Date End Date Unknown Unknow Provider Address PCP - General 08/08/20 06/29/23 Pcp, No PCP - General General Medicine 06/30/23 09/27/23 Only, [facility] [address] [place] [address] PCP - General 09/28/23 documented as of this encounter
--- OUTSIDE RECORDS SUMMARY | 2024-10-08 20:10 | XMS_ITS | Patient Health Record ---
Author Organization [facility] Address [address] [facility] [id number], [place] [address] Care Team Providers Care Trade Marker Name Role Phone [facility] Primary Care Provid er Unavailable Amber Wheat Unavailable [phone] ALLERGIES No Known Allergies REASON FOR REFERRAL [...] Date Coverage End Date ERIC DENNIS [address] [place] [id number] Marixa Bass Self - patient is the insured
--- OUTSIDE RECORDS SUMMARY | 2024-10-08 20:10 | XMS_ITS | Clinical Summary ---
Author Organization [facility] Address [address] [place] [address] Phone Care Team Providers Care Shift Nurse Manager Name Role Phone Rita Miles Primary Care Provid er Allergies No known active allergies Medications albuterol 5 mg/mL nebulizer solution Take 0.5 mL (2.5 mg total) by nebulization every 6 (six) hours if needed for wheezing. 20 mL 4 Active Active Problems Problem Noted Date Diagnosed Date Asthma exacerbation 06/30/2024 Medical History Medical History Date Comments Asthma [...] 07/28/2004, 04/19/2004, Additional history exists Meningococcal B Vaccine (1 of 2 - Standard) 2019 COVID-19 Vaccine ( - season) 2024 09/15/2021, 10/30/2020, 10/09/2020 Annual Well Child Visit (3-21 years old) 03/10/2024 12/15/2014, 12/10/2013 Cholesterol Screening (Lipid Panel) 03/10/2024 Depression Screening 03/10/2024 HIV Screening 03/10/2024 Hepatitis C Screening 03/10/2024 Social Influencers of Health Screening 03/10/2024 DTaP,Tdap,and Td Vaccines (7 - Td or Tdap) 12/15/2024 12/15/2014, 04/06/2008, 04/06/2008, Additional history exists Influenza Vaccine (Season Ended) 2025 02/26/2023, 04/05/2022, 01/23/2021, Additional history exists Hepatitis B Vaccines Completed [...] on patient's age to complete this topic Insurance [place] MED[place] [...] currently active code status orders. Care Teams Shift Nurse Manager Relationship Specialty Start Date End Date Rita Miles PA [address] [place] [id number] PCP - General 04/28/24
--- OUTSIDE RECORDS SUMMARY | 2024-10-08 20:10 | XMS_ITS ---
Author Name [facility] Organization Unknown Results Test Name/Text Value Interpretation Date Range Source HCG Preg Ur Ql Negative Normal [id number] - [facility] LACTIC ACID 1.8mmol/L Normal [id number] - [facility] RSV RNA Resp Ql ROSANGELA+probe Negative Normal [id number] [facility] FLUBV RNA Nph Ql ROSANGELA+probe Negative Normal [id number] [facility] SARS-CoV-2 RNA Resp Ql ROSANGELA+probe Negative Normal [id number] [facility] FLUAV RNA Nph Ql ROSANGELA+probe Negative Normal [id number] [facility] BNP SerPl-mCnc 18pcg/mL Normal [id number] 0 - 100 [facility] Troponin I SerPl HS-mCnc 2ng/L Normal [id number] 0 - 14 [facility] Macrocytes Bld Ql Smear Few Abnormal [id number] - [facility] Platelet Bld Ql Smear Platelets Appear Normal Normal [id number] - [facility] Hypochromia Bld Ql Smear 2+ Abnormal [id number] - [facility] Stomatocytes Bld Ql Smear 1+ Abnormal [id number] - [facility] Microcytes Bld Ql Smear Many Abnormal [id number] - [facility] Anisocytosis Bld Ql Smear 2+ Abnormal [id number] - [facility] Polychromasia Bld Ql Smear Few Abnormal [id number] - [facility] Giant Platelets Bld Ql Smear Few Abnormal [id number] - [facility] RBC morph Bld Reviewed Normal [id number] [facility] Elliptocytes Bld Ql Smear 2+ Abnormal [id number] - [facility] Creat SerPl-mCnc 0.7mg/dL Normal [id number] 0.5 - 1 [facility] Glucose SerPl-mCnc 127mg/dL Normal [id number] 70 - 199 [facility] Anion Gap SerPl-sCnc 9 Normal [id number] 5 - 14 [facility] eGFRcr SerPlBld CKD-EPI 2020 127mL/min/1.73m 2 Normal [id number] - [facility] BUN SerPl-mCnc 7mg/dL Normal [id number] 7 - 17 [facility] BUN/Creat SerPl 10 Below low normal [id number] 12 - 20 [facility] Chloride SerPl-sCnc 101mmol/L Normal [id number] 98 - 10 7 [facility] Calcium SerPl-mCnc 9mg/dL Normal [id number] 8.4 - 10 .2 [facility] Potassium SerPl-sCnc 3.4mmol/L Below low normal [id number] 3.5 - 5.1 [facility] Sodium SerPl-sCnc 138mmol/L Normal [id number] 135 - 145 [facility] CO2 SerPl-sCnc 28mmol/L Normal [id number] 24 - 32 [facility] Monocytes/leuk NFr Bld Auto 6.3% Normal [id number] 2 - 12 [facility] Hgb Bld-mCnc 9.6g/dL Below low normal [id number] 12.5 - 16 [facility] Lymphocytes/leuk NFr Bld Auto 24.4% Normal [id number] 20 - 48 [facility] RBC # Bld Auto 5.06M/mcL Normal [id number] 4.2 - 5.4 [facility] Basophils # Bld Auto 0.07K/mcL Normal [id number] 0 - 0.2 [facility] Hct VFr Bld Auto 32.9% Below low normal [id number] 37 - 47 [facility] WBC # Bld Auto 14.1K/mcL Above high normal [id number] 4 - 10.5 [facility] Eosinophil/leuk NFr Bld Auto 7.4% Above high normal [id number] 0 - 6 [facility] PMV Bld Auto 10.3FL Normal [id number] 7.4 - 11.4 [facility] Neutrophils/leuk NFr Bld Auto 60.9% Normal [id number] 44 - 74 [facility] MCV RBC Auto 65FL Below low normal [id number] 78 - 10 0 [facility] Neutrophils # Bld Auto 8.55K/mcL Above high normal [id number] 1.8 - 7.8 [facility] MCHC RBC Auto-mCnc 29.2g/dL Below low normal [id number] 2 - [facility] Monocytes # Bld Auto 0.89K/mcL Above high normal [id number] 0 - 0.8 [facility] Basophils/leuk NFr Bld Auto 0.5% Normal [id number] 0 - 2 [facility] Platelet # Bld Auto 442K/mcL Normal [id number] 150 - 4 50 [facility] Lymphocytes # Bld Auto 3.43K/mcL Above high normal [id number] 1 - 3.2 [facility] MCH RBC Qn Auto 19pcg Below low normal [id number] 25 - 33 [facility] RDW RBC Auto-Rto 22.4% Above high normal [id number] 12 .1 - 16.2 [facility] Eosinophil # Bld Auto 1.04K/mcL Above high normal [id number] 0 - 0.5 [facility] FLUAV RNA Nph Ql ROSANGELA+probe Negative Normal [id number] [facility] RSV RNA Resp Ql ROSANGELA+probe Negative Normal [id number] [facility] SARS-CoV-2 RNA Resp Ql ROSANGELA+probe Negative Normal [id number] [facility] FLUBV RNA Nph Ql ROSANGELA+probe Negative Normal [id number] [facility] URINE Glucose, POC Normal - [facility] Bilirubin, POC Normal - [facility] Nitrite, POC Normal - [facility] Blood[facility] POC Normal - [facility] Color, POC Normal [facility] UR[facility] Ketones, POC Normal - [facility] UR[facility] Spec [place], POC 1.029 Normal 1.003 - 1.03 [facility] URINE pH, POC 6 Normal 5 - [address] URINE Clarity, POC Normal [id number] [facility] URINE Leuk Esterase, POC Normal - [facility] Urobilinogen, URINE POC 0.2mg/dL Normal 0.2 - 1 [facility] URINE Protein, POC Normal - [facility] History of Medication Use Medication Directions Dispensed Refills Start Date End Date Status predniSONE (DELTASONE) 20 mg tablet Take 2 tablets (40 mg total) by mouth 1 (one) time each day for 2 days, THEN 1.5 tablets (30 mg total) 1 (one) time each day for 2 days, THEN 1 tablet (20 mg total) 1 (one) time each day for 2 days, THEN 0.5 tablets (10 mg total) 1 (one) time each day for 2 days. 5 active sodium chloride 0.9 % infusion 50 mL/hr, intravenous, Continuous, Starting on Sat06/30/24 at 0845, For 24 hours 5 active acetaminophen (TYLENOL) tablet 1,000 mg 1,000 mg, oral, Once, On Sat06/30/24 at 0742, For 1 dose 5 completed azithromycin (ZITHROMAX) tablet 500 mg 500 mg, oral, Once, On Sat06/30/24 at 0347, For 1 dose, Indication: Pneumonia, Community Acquired 5 completed cefTRIAXone (ROCEPHIN) 1 g in sterile water 10 mL IV syringe 1 g, intravenous, at 200 mL/hr, Administer over 3 Minutes, Once, On Sat06/30/24 at 0347, For 1 dose, Do not administer simultaneously with any calcium containing solutions via a Y-site in any patient., Indication: Pneumonia, Community Acquired 5 025 completed magnesium sulfate 2 gram/50 mL (4 %) IVPB 2 g 2 g, intravenous, at 25 mL/hr, Administer over 2 Hours, Every 2 hours, First dose on Sat06/30/24 at 0248, For 2 doses 5 01/28/2 025 aborted potassium chloride (KLOR-CON M10) CR tablet 40 mEq 40 mEq, oral, Once, On Sat06/30/24 at 0405, For 1 dose, Tablet may be swallowed whole (do not crush/chew/suck on) OR broken in half and each half swallowed separately OR dissolved (whole tablet) in ~4 ounces of water (allow ~2 minutes to dissolve, stir well and administer immediately). 5 completed albuterol 2.5 mg /3 mL (0.083 %) nebulizer solution 2.5 mg 2.5 mg, nebulization, Every 4 hours PRN, wheezing, Starting on Sat06/30/24 at 0543 5 active enoxaparin (LOVENOX) injection 40 mg 40 mg, subcutaneous, Every 12 hours scheduled, First dose on Sat06/30/24 at 0900, Indication: VTE/PE Prophylaxis 5 active methylPREDNISolone sodium succ (SOLU-Medrol) injection 40 mg 40 mg, intravenous, Every 8 hours while awake, First dose on Sat06/30/24 at 1400, Reconstitute each 40 mg vial with 1 mL sterile water for injection to a concentration of 40 mg/mL. 5 active predniSONE (DELTASONE) 20 mg tablet Take 2 tablets (40 mg total) by mouth 1 (one) time each day for 4 days. 5 active methylPREDNISolone sodium succ (SOLU-Medrol) injection 125 mg 125 mg, intramuscular, Once, On Sat06/16/24 at 0355, For 1 dose, Reconstitute each 125 mg vial with 2 mL sterile water for injection to a concentration of 62.5 mg/mL. 5 completed albuterol 5 mg/mL nebulizer solution Take 0.5 mL (2.5 mg total) by nebulization every 6 (six) hours if needed for wheezing. 4 active docusate sodium (COLACE) 100 MG capsule Take 1 capsule (100 mg total) by mouth 2 (two) times a day. 4 active famotidine (PEPCID) 40 MG tablet Take 1 tablet (40 mg total) by mouth nightly. 4 active ondansetronTake 1 tablet (Oral) every 4 hours PRN - Nausea for 5 [id number], disintegratingevery 4 [id number] e4mg 4 active norethindrone (AYGESTIN) tablet 5 mg 5 mg (0.0496 mg/kg), Oral, Daily, First dose on Sat02/07/23 at 2100 3 active norflurane-pentafluoro propane (PAINEASE) spray Topical (Top), Every 5 min PRN, venipuncture (IV or phlebotomy), Starting on Sat02/07/23 at 0057Apply to: affected area 3 active 0.9% sodium chloride IV bolus 1,000 mL 1,000 mL (9.84 mL/kg), Intravenous, at 1,000 mL/hr, Once, On Sat02/06/23 at 1915, For 1 dose 3 023 completed ondansetron (ZOFRAN-ODT) disintegrating tablet 4 mg 4 mg (0.0394 mg/kg), Oral, Once, On Sat02/06/23 at 1700, For 1 dose 3 023 completed ferrous Sulfate dried (Slow Iron) 160 (50 Fe) MG Tab CR Take 1 tablet (160 mg total) by mouth every morning with breakfast. 3 active famotidine (PEPCID) 20 MG tablet Take 1 tablet (20 mg) by mouth 2 (two) times daily 2 023 active norethindrone (AYGESTIN) 5 mg tablet 5 mg BID (10 mg total) once in morning, once in night 0 active EPINEPHrine (EPIPEN) 0.3 mg/0.3 mL injection Inject 0.3 mLs (0.3 mg) into the muscle as needed for Anaphylaxis 8 active albuterol (PROAIR HFA) 90 mcg/actuation inhaler active albuterol (PROAIR HFA) 90 mcg/actuation inhaler active ergocalciferol (VITAMIN D2) 50,000 unit capsule active fluticasone (FLOVENT HFA) 110 mcg/actuation inhaler active fluticasone (FLOVENT HFA) 110 mcg/actuation inhaler active Problems Problem Status Onset Date Problem Type Date of Resolution Source Viral infection, unspecified active 2023-06-16 ProblemAct [facility] Asthma exacerbation active 2024-06-30 ProblemAct [facility] Hypoxia active EncounterDiagnosisAct [facility] Hypokalemia active EncounterDiagnosisAct [facility] Constipation, unspecified constipation type active EncounterDiagnosisAct [facility] Oligomenorrhea, unspecified type active EncounterDiagnosisAct [facility] Bloating active EncounterDiagnosisAct [facility] Abrasion of left cornea, initial encounter active EncounterDiagnosisAct [facility] Obstructive sleep apnea of child active 2015-10-06 ProblemAct [facility] Urinary tract infection active 2014-09-14 ProblemAct [facility] Behavior concern active 2014-09-18 ProblemAct [facility] Vomiting in pediatric patient active EncounterDiagnosisAct [facility] Abdominal pain active 2023-02-07 Problem[address] [facility] Mild intermittent asthma active 2013-12-10 ProblemAct [facility] Obesity active 2013-12-10 ProblemAct [facility] Vitamin D deficiency active 2013-12-18 ProblemAct [facility] Snoring active 2013-12-10 ProblemAct [facility] Immunizations Vaccine Date Source Lot Number Status HPV 9 07/21/2015 [facility] [id number] completed Influenza, Live, Nasal 07/21/2015 [facility] [id number] co mpleted HPV Quadrivalent 12/15/2014 [facility] [id number] complete d Meningococcal Conjugate Sero groups ACWY (Polysaccharide)(MCV4P) 12/15/2014 [facility] [id number] complete d Tdap 12/15/2014 [facility] [id number] completed HPV Quadrivalent 12/10/2013 [facility] [id number] complete d Influenza Seasonal, Injectable 03/13/2012 [facility] completed Influenza Seasonal, Injectable 09/20/2010 [facility] completed Hep A, Unspecified 05/23/2009 [facility] comple nayana Influenza Seasonal, Injectable 05/23/2009 [facility] completed Influenza Seasonal, Injectable 04/20/2009 [facility] completed DTaP 04/06/2008 [facility] completed DTaP / IPV 04/06/2008 [facility] completed Hep A, Unspecified 04/06/2008 [facility] comple nayana Influenza Seasonal, Injectable 04/06/2008 [facility] completed Influenza Seasonal, Injectable 08/06/2007 [facility] completed Pneumococcal Conjugate 7-Valent 04/29/2007 [facility] completed Influenza Seasonal, Injectable 04/02/2007 [facility] completed MMR 04/02/2007 [facility] completed Varicella 04/02/2007 [facility] completed DTaP 03/27/2005 [facility] completed HiB, Unspecified 03/27/2005 [facility] complete d Influenza Seasonal, Injectable 03/27/2005 [facility] completed IPV 03/27/2005 [facility] completed MMR 11/08/2004 [facility] completed Varicella 11/08/2004 [facility] completed DTaP 07/28/2004 [facility] completed Hep B, Unspecified 07/28/2004 [facility] comple nayana HiB, Unspecified 07/28/2004 [facility] complete d IPV 07/28/2004 [facility] completed Pneumococcal Conjugate 7-Valent 07/28/2004 [facility] completed DTaP 04/19/2004 [facility] completed Hep B, Unspecified 04/19/2004 [facility] comple nayana HiB, Unspecified 04/19/2004 [facility] complete d Influenza Nasal, Unspecified Formulation 04/19/2004 [facility] C completed Influenza Seasonal, Injectable 04/19/2004 [facility] completed IPV 04/19/2004 [facility] completed Pneumococcal Conjugate 7-Valent 04/19/2004 [facility] completed DTaP 01/25/2004 [facility] completed Hep B, Unspecified 01/25/2004 [facility] comple nayana HiB, Unspecified 01/25/2004 [facility] complete d IPV 01/25/2004 [facility] completed Pneumococcal Conjugate 7-Valent 01/25/2004 [facility] completed Hep B, Unspecified 2003 [facility] comple nayana Encounters Encounter Type Encounter Reason Primary Diagnosis Location Date Emergency trouble breathing Unspecified as thma with (acute) exacerbation [facility] 06/30/2024 Emergency sob Unspecified asth ma with (acute) exacerbation [facility] 06/16/2024 Ambulatory Oligomenorrhea, unspecified Oligomenorrhea, unspecified [facility] 10/21/2023 Emergency Generalized abdominal pain Generalized abdominal pain [facility] 09/28/2023 Emergency Generalized abdominal pain Generalized abdominal pain [facility] 06/30/2023 Ambulatory [facility] 06/16/2023 Emergency Urinary tract infection, site not specified Urinary tract infection, site not specified [facility] 04/21/2023 Emergency Urinary tract infection, site not specified Urinary tract infection, site not specified [facility] 04/08/2023 Ambulatory Unspecified abdominal pain Unspecified abdominal pain [facility] ([facility] 02/06/2023 Emergency Excessive and frequent menstruation with regular cycle Excessive and frequent menstruation with regular cycle [facility] 01/21/2023 Emergency Crushing injury of unspecified hand, initial encounter [facility] 11/06/2022 Ambulatory [facility] 05/23/2022 Care Team Organization Name Specialty Phone Email Start Date End Da te [facility] 10/07/2024 [facility]24 [facility] VANNA BONILLA Primary Care 06/16/2024 [facility] 02/04/2024 [facility] 10/01/2023 [facility] Primary Care 09/29/2023 [facility] 09/18/2023 [facility] [employer] 09/18/2023 [facility] NO PCP Primary Care 06/30/2023 [facility] ([facility] 06/23/2023 [facility] ([facility] EDDIE PETERSEN Primary Care 06/23/2023 [facility] NO PROVIDER Primary Care 06/23/2023 [facility] Not Disclosed Primary Care 06/23/2023 [facility] Not Disclosed Primary Care 06/23/2023 [facility] 05/12/2023 05/12/2023 [facility] 05/12/2023 [facility] 04/04/2023 0[facility] MEDRANO Primary Care 03/01/2023 [facility] 02/22/2023 024 [facility] 11/07/2022 08/19/2024 [facility] 11/06/2022 11/06/2022 [facility] 06/25/2022 [facility] EDDIE PETERSEN Primary Care 05/25/2022 [facility] 04/04/2022
--- OUTSIDE RECORDS SUMMARY | 2024-10-08 20:10 | XMS_ITS ---
Author Organization [facility] [employer] Address [address] [place] [address] Care Team Providers Care Mail Forwarding System Markup Clerk Name Role Phone Rita Miles Primary Care Provider [phone] Rohan Barrios [phone] REASON FOR VISIT Per internal referral see te dated - Yashira created at 08/10/24 14:51 Marixa Bass 03 Social History Sex Assigned At : Social History Observation Description Sex Assigned At Female Encounters Encounter Location Date Provider Diagnosis [address] [address] 08/26/2024 Rohan Barrios Plan Of Treatment No Information Progress Notes * Marixa BASSDOB: [birth year] (18 yo F)Acc No.[id number]:08/26/2024 Patient:?Marixa BASS Provider:?Rohan Barrios DC :2005???Age:18 Y???Sex:Female D ate:08/26/2024 External Visit ID:[id number] Address:[address] [place], [place] [id number] Pcp:Rita Miles Subjective: * Chief Complaints: * ???1. Per internal referral see te dated - Yashira created at 08/10/24 14:51 Marixa Bass 03 . * Medical History:? Objective: * Vitals:? Assessment: Plan: * Treatment: * Billing Information: * Visit Code:? * Procedure Codes:? * Electronic signature of Rohan Barrios DC on 10/08/2024 at 08:10 PM EDT Sign off status: Pending * Provider:?Rohan Barrios DC Date:?08/26 Generated for Jojo stevens/Tom/Lynneitting on:?10/08/2024 08:10 PM EDT
--- OUTSIDE RECORDS SUMMARY | 2024-10-08 20:11 | XMS_ITS ---
Author Organization [employer] Address [address] [facility] [id number], [place] [address] Care Team Providers Care Television News Video Editor Name Role Phone [facility] Primary Care Provid er Unavailable Amber Wheat [phone] REASON FOR VISIT bc patch F/U Encounters Encounter Location Date Provider Diagnosis [facility]/CDE-110 Facility [address] [place] [address] 05/15/2023 Amber Wheat PLAN OF TREATMENT No Information
--- OUTSIDE RECORDS SUMMARY | 2024-10-08 20:11 | XMS_ITS | Patient Health Record ---
Author Organization [employer] [facility] Address [address] [place] [address] Care Team Providers Care Fish Processing Supervisor Name Role Phone Phoebe Suh Primary Care [...] sips of alcohol taken during family or mu-ism events.) No During the PAST 12 MONTHS, did you smoke any mar ijuana or hashish? No During the PAST 12 MONTHS, d id you use anything else to get high? ( anything else includes illegal drugs, wqsb-vxb-ldpzocw and prescription drugs, and things that you sniff or ramírez ) No Have you ever ridden in a [place] driven by someone (including yourself) who was high or had been using alcohol or drugs? No Problems Problem Type SNOMED Code ICD Code Onset Dates Problem Status W/U Status Risk Notes Problem 53394312 Generalized anxiety disorder (F41.1) Active confirmed Problem 522531301 Episodic tension-type headache, not intractable (G44.219) Active confirmed Problem 234613291 Chronic tension-type headache, not intractable (G44.229) Active confirmed Problem 17587672 Other chronic pain (G89.29) Active confirmed Problem 69164940 Constipation, unspecified constipation type (K59.00) Active confirmed Problem 46073544 Amenorrhea (N91.2) Active confirmed Problem Problem behavior (302784711) Behavior concern (R46.89) Active confirmed Problem 88633161 Stress (F43.9) Active confirmed Problem 664864110 Migraine without aura and without status migrainosus, not intractable (G43.009) Active confirmed Problem 990321027 Acute non intractable tension-type headache (G44.209) Active confirmed Problem 423383880 Iron deficiency anemia secondary to inadequate dietary iron intake (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) Active confirmed Problem Mild depression (278638028) Mild depression (F32.0) Active confirmed Problem 497262932 Pediatric obesity due to excess calories without serious comorbidity, unspecified BMI (E66.09) Active confirmed Problem 62748092 Oligomenorrhea, unspecified type (N91.5) Active confirmed Problem Parent-child conflict (Z62.820) Active confirmed Plan Of Treatment No Information Insurance Providers Payer Name Payer Address Payer Phone Subscriber Number Group Number Insured Name Patient Relationship to Insured Coverage Start Date Coverage End Date [place] [address] [place] [id number] [phone] [id number] Marixa Bass Self - patient is the insured Medical (General) History Medical History History ICD Code LOC Anxiety JAREK Obesity Surgical History Surgery Date(Month/Year)
--- OUTSIDE RECORDS SUMMARY | 2024-10-08 20:11 | XMS_ITS ---
Author Organization [facility] [employer] Address [address] [facility] [id number] [address] Care Team Providers Care Sweater Designer Name Role Phone [facility] Primary Care Provid er Unavailable Amber Wheat [phone] Encounters Encounter Location Date Provider Diagnosis [facility]/CDE-110 Facility [address] [place] [address] 05/13/2023 Amber Wheat PLAN OF TREATMENT No Information
--- OUTSIDE RECORDS SUMMARY | 2024-10-08 20:11 | XMS_ITS | Clinical Summary ---
Author Organization [facility] Address [address] [place] [address] Care Team Providers Care Flare Stitcher Name Role Phone Only, [facility] Primary Care Provider Allergies No known active allergies Medications ferrous Sulfate dried (Slow Iron) 160 (50 Fe) MG Tab CR Take 1 tablet (160 mg total) by mouth every morning with breakfast. 30 tablet 3 Active senna (SENOKOT) 8.6 MG Tab tablet Take 2 tablets by mouth 2 (two) times a day. Take with eight ounces of water 60 tablet 3 Active famotidine (PEPCID) 40 MG tabletIndications :Screening procedure Take 1 tablet (40 mg total) by mouth nightly. 4 Active docusate sodium (COLACE) 100 MG capsuleIndication s:Constipation, unspecified constipation type Take 1 capsule (100 mg total) by mouth 2 (two) times a day. 60 capsule 3 4 Active polyethylene glycol (miraLAx) 17 g packetIndications :Constipation, unspecified constipation type Take 1 packet (17 g total) by mouth daily. 14 packet 1 4 Active Family History Relation Name Status Comments [...] day at this level? 20 min 12/31/2023 Comments No Sex and Gender Information Value Date Recorded [...] of 3 - 19+ 3-dose series) 10/16/2022 COVID-19 Vaccine ( season) 2024 09/15/2021, 10/30/2020, 10/09/2020 Influenza Vaccine 01/01/2025 02/26/2023, , 01/23/2021, Additional history exists Influenza Vaccine Discontinued 02/26/2023, , 01/23/2021, Additional history exists Pneumococcal Vaccine: Pediatric (0-5 Years) and At-Risk Patients (6 to 49 Years) Aged Out No longer eligible based on patient's age to complete this topic Insurance [facility] Care Teams Flare Stitcher Relationship Specialty Start Date End Date Only, [facility] [address] [place] [address] PCP - General 09/28/23
--- OUTSIDE RECORDS SUMMARY | 2024-10-08 20:11 | XMS_ITS | Encounter Summary ---
Author Organization [facility] Address [address] [place] [address] Care Team Providers Care Healthcare Risk Control Consultant Name Role Phone Unknown Primary Care Provider [phone] Pcp, No Primary Care Provider [facility] Only, [facility] Primary Care Provider Encounter Details Date Type Department Care Team (Late st Contact Info) Description 08/08/[address] [place] [facility] [address] [facility] [address] [place] [phone] Juan Hall MD [address] [place] [address] Encounter for laboratory testing for COVID-19 virus [...] this encounter Results * (ABNORMAL) COVID-19 (SARS-COV-2) (CHRIS) (08/08/2020 9:32 AM EST) COVID-19 RT-PCR DETECTED( A) Not-Detec nayana 08/09/2020 4:29 PM EST [facility]RIS MCKENZIE Comment:Interpretation: The viral RNA was detected, consistent with the diagnosis of COVID-19. Correlation with clinical findings is highly recommended.Final report signed by Dennys Prescott, Ph.D., Laboratory DirectorTests performed at [facility] Nasopharyngeal swab / Unknown 08/08/2020 9:32 AM EST 08/08/2020 9:32 AM EST Narrative CHRIS MCKENZIE - 08/09/2020 4:29 PM EST Performed by [facility]., [address] [place] [address], CLIA# [id number] and [place] License# [id number] us Juan Hall MD MICROBIOLOGY - GENERAL ORDER MAGY Final Result CHRIS MCKENZIE documented in this encounter Visit Diagnoses Diagnosis Encounter for laboratory testing for COVID-19 virus documented in this encounter Care Teams Healthcare Risk Control Consultant Relationship Specialty Start Date End Date Unknown Unknow Provider Address PCP - General 08/08/20 06/29/23 Pcp, No PCP - General General Medicine 06/30/23 09/27/23 Only, [facility] [address] [place] [address] PCP - General 09/28/23 documented as of this encounter
== END 2024-10-08 20:11 | disposition home or self-care (01) ==
PROVIDERS: Registered Nurse Emergency; Emergency Provider Emergency Medicine
DX: R10.13 Epigastric pain (principal); R00.0 Tachycardia, unspecified; J45.909 Unspecified asthma, uncomplicated; Z79.899 Other long term (current) drug therapy
CPT/HCPCS: 36415; 80053; 83690; 84702; 85025; 93005; 99283

== ENCOUNTER → 2024-10-08 16:57 | Outpatient (BNV) | payer MEDICAID, SELFPAY | PROVIDERS: Emergency Provider Emergency Medicine; Visit Provider Internal Medicine | DX: R00.0 Tachycardia, unspecified (principal) | CPT/HCPCS: 93010 ==

== ENCOUNTER 2025-01-30 19:22 | Emergency (ER) | payer MEDICAID, SELFPAY ==
--- OUTSIDE RECORDS SUMMARY | 2024-12-23 12:40 | XMS_ITS ---
Author Organization [employer] Address [address] [place] [address] Care Team Providers Care Silk Opener Name Role Phone Rita Miles Primary Care Provider [phone] Rohan Barrios Unavailable [phone] REASON FOR VISIT Chiropractic Fu RE // Yashira confirmed 12/18/24 4:59am Social History Sex Assigned At : Social History Observation Description Sex Assigned At Female Encounters Encounter Location Date Provider Diagnosis [address] [address] 12/23/2024 Rohan Barrios Plan Of Treatment Next Appt Details Provider Name:Alisha gallo, 03/17/2025 10:20:00 AM, [address] [place] [address], [address], Progress Notes * Marixa BASSDOB: [birth year] (19 yo F)Acc No.[id number]:12/23/2024 Patient: Bethanie Marixa SOLANO Provider: Marlena Barrios DC :2005 A ge:19 Y S ex:Female Date:12/23/2024 External Visit ID:[id number] Address:[address] [place], [place] [id number] Pcp:Rita Miles Subjective: * Chief Complaints: * 1 . Chiropractic Fu RE // Yashira confirmed 12/18/24 4:59am. * Medical History: Objective: * Vitals: Assessment: Plan: * Treatment: * Billing Information: * Visit Code: * Procedure Codes: * Electronic signature of Rohan Barrios DC on 01/30/2025 at 07:46 PM EDT Sign off status: Pending * Provider: Marlena Barrios DC Date: 12/23/2024 Generated for Jojo stevens/Tom/Maddy on: 0 01/30/2025 07:46 PM EDT
--- OUTSIDE RECORDS SUMMARY | 2024-12-30 10:20 | XMS_ITS ---
Author Organization [facility] Address [address] [place] [phone] Care Team Providers Care Shipyard Supervisor Name Role Phone Rita Miles Primary Care Provider [phone] Pat Miller [phone] REASON FOR VISIT PAP RE, WHO CANDIDATE, Cervical Cancer Screening, Needs SMG - Obesity, Chlamydia Screen, BMI, ACT, Health Literacy Social History Sex Assigned At : Social History Observation Description Sex Assigned At Female Encounters Encounter [place] [address] 12/30/2024 Pat Johns Plan Of Treatment Next Appt Details Provider Name:Alisha gallo, 03/17/2025 10:20:00 AM, [address] [place] [address], [address], Progress Notes * Marixa BASSDOB: [birth year] (19 yo F)Acc No.[id number]:12/30/2024 Progress Notes Patient: Bethanie RUSS Marixa Weir Provider: Destin Johns CNM :2005 A ge:19 Y S ex:Female Date:12/30/2024 External Visit ID:[id number] Address:[address] [place] [address] Pcp:Rita Miles Subjective: * Chief Complaints: * 1 . PAP RE. 2. WHO CANDIDATE. 3. Cervical Cancer Screening. 4. Needs SMG - Obesity. 5. Chlamydia Screen. 6. BMI, ACT, Health Literacy. * HPI: G eneral: Last pap: pmh: JAREK, asthma, GERD. * Medical History: Objective: * Vitals: * Physical Examination: Assessment: Plan: * Treatment: * Billing Information: * Visit Code: * Procedure Codes: * Electronic signature of Concepcion Johns CNM on 01/30/2025 at 07:45 PM EDT Sign off status: Pending * Provider: Destin Johns CNM Date: 12/30/2024 Generated for Jojo stevens/Tom/Maddy on: 01/30/2025 07:45 PM EDT
--- OUTSIDE RECORDS SUMMARY | 2025-01-06 11:00 | XMS_ITS ---
Author Organization [employer] [facility] [facility] [employer] Address [address] [place] [address] Care Team Providers Care Family Law Legal Assistant Name Role Phone Rita Miles Primary Care Provider Rohan Barrios Unavailable [phone] REASON FOR VISIT First Chiropractic Visit - Yashira created at 12/23/24 04:03 Marixa Bass 03 - Yashira created at 12/23/24 12:57 Marixa Bass 03 // Yashira confirmed 12/31/24 4:21pm Social History Sex Assigned At : Social History Observation Description Sex Assigned At Female Encounters Encounter Location Date Provider Diagnosis [address] [address] 01/06/2025 Rohan Barrios Plan Of Treatment Next Appt Details Provider Name:Alisha Rosales sabino, 03/17/2025 10:20:00 AM, [address] [place] [address], [address], Progress Notes * Marixa BASSDOB: [birth year] (19 yo F)Acc No.[id number]:01/06/2025 Patient: Bethanie Marixa SOLANO Provider: Marlena Barrios DC :2005 A ge:19 Y S ex:Female Date:01/06/2025 External Visit ID:[id number] Address:[address] [place] [address] Pcp:Rita Miles Subjective: * Chief Complaints: * 1 . First Chiropractic Visit - Yashira created at 12/23/24 04:03 [facility] Shelia 03 - Yashira created at 12/23/24 12:57 [facility] Shelia 03 // Yashira confirmed 12/31/24 4:21pm. * Medical History: Objective: * Vitals: Assessment: Plan: * Treatment: * Billing Information: * Visit Code: * Procedure Codes: * Electronic signature of Rohan Barrios DC on 01/30/2025 at 07:46 PM EDT Sign off status: Pending * Provider: Marlena Barrios DC Date: 01/06/2025 Generated for Jojo stevens/Tom/Lynneitting on: 01/30/2025 07:46 PM EDT
--- OUTSIDE RECORDS SUMMARY | 2025-01-13 10:00 | XMS_ITS ---
Author Organization [facility] Address [address] [place] [address] Care Team Providers Care Guidance Counselor Name Role Phone Rita Miles Primary Care Provider [phone] Rohan Barrios Unavailable [phone] REASON FOR VISIT First Chiropractic Visit - Yashira created at 12/23/24 04:03 Marixa Bass 03 - Yashira created at 12/23/24 12:57 Marixa Shelia 03 // Yashira confirmed 12/31/24 4:21pm - Yashira created at 01/08/25 01:19 Marixa Social History Sex Assigned At : Social History Observation Description Sex Assigned At Female Encounters Encounter Location Date Provider Diagnosis [address] [address] 01/13/2025 Rohan Barrios Plan Of Treatment Next Appt Details Provider Name:Alisha Marcusmandy gallo, 03/17/2025 10:20:00 AM, [address] [place] [address], [id number], Progress Notes * Marixa BASSDOB: [birth year] (19 yo F)Acc No.[id number]:01/13/2025 Patient: Marixa ROY Provider: Marlena Barrios DC :2005 A ge:19 Y S ex:Female Date:01/13/2025 External Visit ID:[id number] Address:[address] [place], [place] [id number] Pcp:Rita Miles Subjective: * Chief Complaints: * 1 . First Chiropractic Visit - Yashira created at 12/23/24 04:03 [facility] Shelia 03 - Yashira created at 12/23/24 12:57 [facility] Shelia 03 // Yashira confirmed 12/31/24 4:21pm - Yashira created at 01/08/25 01:19 [facility]. * Medical History: Objective: * Vitals: Assessment: Plan: * Treatment: * Billing Information: * Visit Code: * Procedure Codes: * Electronic signature of Rohan Barrios DC on 01/30/2025 at 07:46 PM EDT Sign off status: Pending * Provider: Marlena Barrios DC Date: 01/13/2025 Generated for Jojo stevens/Tom/Lynneitting on: 01/30/2025 07:46 PM EDT
--- NOTE | ~2025-01-30 | US_ITS ---
CLINICAL HISTORY: Ovarian torsion rule out US female pelvis LMP:12/23/24. Technique: Ultrasound examination of the pelvis was performed with transabdominal and transvaginal technique for better visualization of the ovaries. Images include: color Doppler and spectral Doppler waveforms. Comparison: None available Findings: Anteverted uterus measuring 7.2 x 3.7 x 4.6cm without masses. Thickened endometrium, measuring 1.4cm with small cysts. The right ovary is normal in size, measuring 2.7 x 1.8 x 1.4cm, volume of 3.6mL. There is normal echogenicity and arterial/venous vascularity. No lesions in the right ovary. In the right adnexa there is a simple cyst measuring 4.4 x 3.3 x 3.7 cm. The left ovary is normal in size, measuring 2.3 x 1.8 x 2.2cm, volume of 4.8mL. There is normal echogenicity and normal venous spectral Doppler. No lesions. No free fluid. Impression: Thickened endometrium with small cysts may indicate cystic endometrial hyperplasia. Referral to gynecology is recommended for tissue sampling. No ovarian torsion. Simple cyst in the right adnexa measuring 4.4 cm could be a paraovarian cyst. This document has been electronically signed by: Annabella Iyer MD on 01/30/2025 22:07:41
[2025-01-30 19:25] VITALS: BP 133/74; PULSE 105; RESP 16; TEMP 37.2; O2SAT 95; BMI 50.9
--- NOTE | 2025-01-30 19:25 | ED.GENADULT ---
HPI - General Adult General Chief complaint: Abdominal Pain Stated complaint: left lower abd pain Time Seen by Provider: 01/30/25 20:24 Related Data Previous Rx's ?Medication ?Instructions ?Recorded albuterol sulfate 90 mcg/actuation 2 puff inhalation Q4-6H PRN 05/25/24 aerosol inhaler shortness of breath or wheezing #8.5 grams prednisone 50 mg tablet 50 mg PO DAILY #5 tabs 05/25/24 albuterol sulfate 90 mcg/actuation 2 inh inhalation Q4-6H PRN 06/04/24 breath activated powder inhaler shortness of breath or wheezing #1 ea prednisone 20 mg tablet 20 mg PO BID #10 tabs 06/04/24 doxycycline hyclate 100 mg tablet 100 mg PO Q12H 5 days #10 tabs 06/28/24 prednisone 20 mg tablet 60 mg (3 x 20 mg) PO DAILY 5 days 06/28/24 #15 tabs ketorolac 10 mg tablet 10 mg PO Q8H PRN pain #10 tabs 08/07/24 metoclopramide HCl 5 mg tablet 5 mg PO DAILY PRN nausea and 08/07/24 (Reglan) vomiting #10 tabs sucralfate 1 gram tablet 1 g PO TID #21 tabs 10/08/24 Allergies Allergy/AdvReac Type Severity Reaction Status Date / Time No Known Allergies Allergy Verified 01/30/25 19:26 [facility] Past Medical History Medical History Asthma Social History Social History Alcohol intake: never Smoked in Last 30 Days: No Use of substances other than those prescribed or required for medical reasons: No Advance Directives: No Advance Directives Information Provided: No Do you have a plan to hurt others: No Plan Physical Exam ED Vital Signs: Vital Signs - 24 hr 01/30/25 19:25 Temperature 98.9 F Pulse Rate 105 H Respiratory Rate 16 Blood Pressure 133/74 Pulse Oximetry 95 Oxygen Delivery Method Room Air BMI result Body Mass Index 50.9 Course Course Course Narrative: RME, this is a rapid medical exam performed by Norberto Sloan please refer to primary provider for complete H&P- 19 year old female presenting for evaluation of lower abdominal pain. She reports that her last menstrual cycle was 12/23, so she is about a week late but had a negative test at home. Denies burning with urination or vaginal bleeding/ discharge. Plan for labs and a UA Medications Administered Discontinued Medications Generic Name Dose Route Start Last Admin Trade Name Cydney PRN Reason Stop Dose Admin Acetaminophen 975 mg 01/30/25 20:47 01/30/25 20:55 Acetaminophen 325 Mg Tablet PO 01/30/25 20:48 975 mg ONCE ONE Administration Medical Decision Making Lab Data Labs: Lab Results 01/30/25 Range/Units 20:57 Urine Color Yellow Urine Appearance Clear Urine pH 6.0 (5.0-9.0) Ur Specific [place] >= 1.030 H (1.005-1.025) Urine Protein Trace (Neg-Trace) mg/dL Urine Glucose (UA) Negative (Negative) mg/dL Urine Ketones Trace (Negative) mg/dL Urine Blood Negative (Negative) Urine Nitrite Negative (Negative) Ur Leukocyte Esterase Large (3+) H (Negative) Urine RBC 0-2 (0-2) /HPF Urine WBC 6-10 (0-5) /HPF Ur Squamous Epith Cells 6-10 (0-2) /HPF Urine Bacteria Trace (None Seen) Hyaline Casts 0-2 (0-2) /LPF Discharge Plan Discharge Prescriptions: No Action prednisone 50 mg tablet 50 mg PO DAILY Qty: 5 0RF albuterol sulfate 90 mcg/actuation HFA aerosol inhaler 2 puff inhalation Q4-6H PRN (Reason: shortness of breath or wheezing) Qty: 8.5 0RF prednisone 20 mg tablet 20 mg PO BID Qty: 10 0RF albuterol sulfate 90 mcg/actuation aerosol powdr breath activated 2 inh inhalation Q4-6H PRN (Reason: shortness of breath or wheezing) Qty: 1 0RF prednisone 20 mg tablet 60 mg PO DAILY 5 Days Qty: 15 0RF doxycycline hyclate 100 mg tablet 100 mg PO Q12H 5 Days Qty: 10 0RF ketorolac 10 mg tablet 10 mg PO Q8H PRN (Reason: pain) Qty: 10 0RF metoclopramide HCl [Reglan] 5 mg tablet 5 mg PO DAILY PRN (Reason: nausea and vomiting) Qty: 10 0RF Rx Instructions: Take together with ketorolac p.r.n. migraine headache sucralfate 1 gram tablet 1 g PO TID Qty: 21 0RF Rx Instructions: take 30 minutes prior to eating Print Language: Urdu
--- OUTSIDE RECORDS SUMMARY | 2025-01-30 19:46 | XMS_ITS | Clinical Summary ---
Author Organization [address] Address [address] [place] [phone] Care Team Providers Care Anesthesiology Physician Assistant Name Role Phone No, Pcp (Do Not Change Name) Primary Care Provid er Unavailable Medications No known medications Active Problems Problem Noted Date Diagnosed Date Obstructive sleep apnea of child 10/06/2015 Mild intermittent asthma 12/10/2013 Family History Relation Name Status Comments Father Alive Mother Alive Social History Tobacco Use Types Packs/Day Years Used Date Smoking Tobacco: Never Smokeless Tobacco: Never Tobacco Cessation:Counseling Given: Not Answered Alcohol Use Standard Drinks/Week Comments Never 0 (1 standard drink = 0.6 oz pur e alcohol) Comments No Sex and Gender Information Value Date Recorded Sex Assigned at Not on file Legal Sex Female 9:33 AM EDT Gender Identity Not on file Sexual Orientation Not on file Last Filed Vital Signs Vital Sign Reading Time Taken Comments Blood Pressure 123/82 10/19/2024 1:53 PM EDT Pulse 103 10/19/2024 1:53 PM EDT Temperature 36.6 C (97.9 F) 10/19/2024 1:53 PM EDT Respiratory Rate 16 10/19/2024 1:53 PM EDT Oxygen Saturation 98% 10/19/2024 1:53 PM EDT Inhaled Oxygen Concentration - - Weight 108.9 kg (240 lb) 10/19/2024 1:53 PM EDT Height 165.1 cm (5' 5 ) 10/19/2024 1:53 PM EDT Body Mass Index 39.94 10/19/2024 1:53 PM EDT Plan of Treatment Health Maintenance Due Date Last Done Comments HIV screening 10/16/2016 Meningococcal B Vaccine (1 of 2 - Standard) 2019 Hepatitis C screening 10/16/2021 Pneumococcal Vaccine (2 - 49 years) (1 of 2 - PCV) 10/16/2022 04/29/2007, 07/28/2004, 04/19/2004, Additional history exists Covid-19 vaccine series (1 - 2023- season) 2024 Chlamydia screening 09/28/2024 09/29/2023, Cervical cancer screening 10/16/2024 DTaP/TDaP Vaccines (7 - Td or Tdap) 12/15/2024 12/15/2014, 04/06/2008, 04/06/2008, Additional history exists Tetanus adult (Td q 10,TDAP once) 12/15/2024 12/15/2014, 04/06/2008, 03/27/2005, Additional history exists Influenza Vaccine Pediatric (#1) 2025 07/21/2015, 03/13/2012, 09/20/2010, Additional history exists RSV Immunization (1 - 1-dose 75+ series) 10/16/2078 Hepatitis B vaccine series Completed 07/28, 04/19/2004, 01/25/2004, Additional history exists HIB Vaccines Completed 03/27/2005, 07/05, 04/19/2004, Additional history exists MMR Vaccines Completed 04/02/2007, 11/08/2004 Varicella Vaccines Completed 04/02/2007, 11/08/2004 IPV Vaccines Completed 04/06/2008, 03/04, 07/28/2004, Additional history exists Hepatitis A Vaccines Completed 05/23/2009, 04/06/20 08 Meningococcal Vaccine Aged Out 12/15/2014 No marty ari eligible based on patient's age to complete this topic HPV vaccine series Completed 07/21/2015, 0 12/15/2014, 12/10/2013 Rotavirus Vaccines Aged Out No longer eligible based on patient's age to complete this topic Insurance [place] Care Teams Anesthesiology Physician Assistant Relationship Specialty Start Date End Date No, Pcp (Do Not Change Name) PCP - General 10/19/24
--- OUTSIDE RECORDS SUMMARY | 2025-01-30 19:46 | XMS_ITS | Patient Health Record ---
Author Organization [facility] Address [address] [place] [address] Care Team Providers Care Carbonizer Tester Name Role Phone Rita Miles Primary Care Provider [phone] Roman Lino Unavailable [phone] Rohan Barrios Unavailable [phone] Pat Johns Unavailable [phone] Allergies Allergen (clinical drug ingredient) Drug/Non Drug Allergy documented on EMR Reaction Allergy Type Onset Date Status Information temporarily unavailable SEASONAL ALLERGIES (uncoded) sneezing Allergy Active Information temporarily unavailable Cephalexin headache Drug Allergy Active Results Component Value Reference Range Notes Comp Metabolic Panel w/eGFR 56344 Reviewed date:07/02/2024 10:19:01 AM Interpretation:Normal Performing Lab:NL1, , [address] [place], [address] Kirstin Valenzuela M.D. Notes/Report: Received Date: 0; [...] 10:19:01 AM Interpretation:Normal Performing Lab:NL1, , [address] [place], [address] Kirstin Valenzuela M.D. Notes/Report: Received Date: 0; 0; 0; 0; 0; 0; 0; 0 FASTING:YES FASTING: YES DHEA SULFATE 156 44-286 mcg/dL CBC (Includes Diff/Plt) 6399 Reviewed date:07/02/2024 10:19:01 AM Interpretation:Abnormal Performing Lab:NL1, , [address] [place], [address] Kirstin Valenzuela M.D. Notes/Report: Elliptocytes 1 + [...] Thousand/uL MPV 10.7 7.5-12.5 fL ABSOLUTE NEUTROPHILS 75603 6698-0022 cells/uL ABSOLUTE LYMPHOCYTES 3289 850-3900 cells/uL ABSOLUTE MONOCYTES 1166 200-950 cells/uL ABSOLUTE EOSINOPHILS 870 15-500 cells/uL ABSOLUTE BASOPHILS 52 0-200 cells/uL NEUTROPHILS 69.1 LYMPHOCYTES 18.9 MONOCYTES 6.7 EOSINOPHILS 5.0 BASOPHILS 0.3 CBC MORPHOLOGY See Note NORMAL TSH w/Free T4 rfx 79020 Reviewed date:07/02/2024 10:19:01 AM Interpretation:Normal Performing Lab:NL1, , [address] [place], [address] Kirstin Valenzuela M.D. Notes/Report: Received Date: 0; 0; 0; 0; 0; 0; 0; 0 FASTING:YES FASTING: YES TSH W/REFLEX TO FT4 0.59 Reference Range > or = 20 Years 0.40-4.50 Ranges First trimester 0.26-2.66 Second trimester 0.55-2.73 Third trimester 0.43-2.91 Hemoglobin A1c 496 Reviewed date:07/02/2024 10:19:01 AM Interpretation:6.3 Performing Lab:NL1, , [address] [place], [address] Kirstin Valenzuela M.D. Notes/Report: Received Date: 0; [...] 10:19:01 AM Interpretation:Normal Performing Lab:NL1, , [address] [place], [address] Kirstin Valenzuela M.D. Notes/Report: Received Date: 0; 0; 0; 0; 0; 0; 0; 0 FASTING:YES FASTING: YES FSH 6.1 Reference Range Follicular Phase 2.5-10.2 Mid-cycle Peak 3.1-17.7 Luteal Phase 1.5- 9.1 Postmenopausal 23.0-116.3 LH 4.8 Reference Range Follicular Phase 1.9-12.5 Mid-Cycle Peak 8.7-76.3 Luteal Phase 0.5-16.9 Postmenopausal 10.0-54.7 Lipid Panel w/refl LDL 13505 Reviewed date:07/02/2024 10:19:01 AM Interpretation:Normal Performing Lab:NL1, , [address] [place], [address] Kirstin Valenzuela M.D. Notes/Report: Received Date: 0; [...] factors. LDL-C is now calculated using the Ramy-Cortez calculation, which is a validated novel method providing better accuracy than the Friedewald equation in the estimation of LDL-C. Ramy SS et al. TESSA. 2013;310(19): 3854-9517 (http://education.Zuffle.com/faq/IIE474) CHOL/HDLC RATIO 4.2 <5.0 (calc) NON HDL CHOLESTEROL 123 <130 mg/dL (calc) For patients with diabetes plus 1 major ASCVD risk factor, treating to a non-HDL-C goal of <100 mg/dL (LDL-C of <70 mg/dL) is considered a therapeutic option. TESTOSTERONE, FREE AND TOTAL , LC/MS/MS 92413 Reviewed date:07/02/2024 10:19:01 AM Interpretation:Normal Performing Lab:[facility]E, , [address], [place], [place], Lemuel De La Torre M.D.,PhD Notes/Report: Received Date: 0; 0; 0; 0; 0; 0; 0; 0 FASTING:YES FASTING: YES TESTOSTERONE, TOTAL, MS 6 2-45 ng/dL For additional information, please refer to http://education.Fundamo (Proprietary)/faq/ TotalTestosteroneLCMSMSFAQ1 65 (This link is being provided for informational/ educational purposes only.) This test was developed and its analytical performance characteristics have been determined by [employer] [place], [place]. It has not been cleared or approved by the U.S. Food and Drug Administration. This assay has been validated pursuant to the CLIA regulations and is used for clinical purposes. TESTOSTERONE, FREE 1.5 0.1-6.4 pg/mL This test was developed and its analytical performance characteristics have been determined by [employer] [place], [place]. It has not been cleared or approved by the U.S. Food and Drug Administration. This assay has been validated pursuant to the CLIA regulations and is used for clinical purposes. Reason For Referral Reason 18 year old female w ith back pain due to breast size. Diagnosis 1 Hypertrophy of breas t (N62) Referral Organization [facility] Referring Provider First Name Rita Referring Provider Last Name [facility] Referring Provider [facility] ctice Referred Provider [facility], ysical Therapy Referred Provider Specialty Physical or Occupational Therapy General Notes Brittany Byrd 04/24/2024 10:56:35 AM >Faxed to [facility]-[address] [place] [address] P:[phone] F:[phone] for scheduling. Their office will contact the patient with the appt. Text sent Referral Priority Routine Reason 18 year old female w ith back pain due to breast size, requesting breast reduction. Diagnosis 1 Hypertrophy of breas t (N62) Referral Organization [facility] Referring Provider First Name Rita Referring Provider Last Name Jd Referring Provider Speciality [facility] ctice Referred Provider Specialty Breast Surge ry General Notes Brittany Byrd 04/24/2024 10:40:19 AM >Faxed to [facility] [facility] (please schedule in [place]) P:[phone] F:[phone] for scheduling. Their office will contact the patient with the appt Text sent Referral Priority Routine Reason 18 year old female w ith back pain secondary to lifting at work. Diagnosis 1 Mid back pain (M54.9 ) Referral Organization [facility] Referring Provider First Name Rita Referring Provider Last Name Tesfayearleen Referring Provider Speciality [facility] Referred Provider Chiropractic, Center Referred Provider Specialty Chiropractor General Notes Alfredo Referral Zoie Ochoa 07/27/2024 02:42:17 PM > Faxed Referral, Progress notes, medical summary sent to: [facility] [address] [place] [address], [address] Office would contact Pt to schedule Appointment, Referral letter send via SMS., [employer], support 09/21/2024 12:10:15 PM>, ReferralPoint: Referral Recommendations Sent to Patient , [facility] , [address] [place] [address], [id number] , , , [employer], support 09/21/2024 12:59:01 PM>, ReferralPoint: Patient Reviewed Link Referral Priority Routine Medications Medication SIG (Take, Route, Frequency, Duration) Notes Start Date End Date Status Albuterol Sulfate 108 (90 Base) MCG/ACT 2 puffs as needed Inhalation every 4 hrs for 30 days 05/21/2024 Not-Taking Benzonatate 200 MG 1 capsule as needed Orally Three times a day for 10 days 05/21/2024 Not-Taking Ondansetron 4 MG 1 tablet on the tong ue and allow to dissolve Orally daily for 30 days Active Ventolin HFA 108 (90 Base) MCG/ACT 1 puff as needed Inhalation every 4 hrs for 30 days 02/26/2023 Active Advair HFA 115-21 MCG/ACT 2 puffs Inhala tion Twice a day for 30 days 06/04/2024 Active Famotidine 40 MG 1 tablet at bedtime Orally Once a day for 90 days Active Nebulizer/Tubing/Mouthpie ce - as directed for [...] Problem Status W/U Status Risk Notes Problem 995594628 Obesity, unspecified (E66.9) Active confirmed Problem 28832084 Oppositional defiant disorder (F91.3) Active confirmed Problem 87486404 Slow transit constipation (K59.01) Active confirmed Problem 640215938 Hypertrophy of breast (N62) Active confirmed Problem 58983669 Irregular menses (N92.6) Active confirmed Problem 73981910 Vitamin D deficiency (E55.9) Active confirmed Problem 307355012 Dysmenorrhea (N94.6) Active confirmed Problem 301687300 Learning difficulty (F81.9) Active confirmed Problem 822320529 Elevated hemoglobin A1c (R73.09) Active confirmed 07/2023 - hgb a1c 5.7 Problem 617645236 Mild persistent asthma without complication (J45.30) Active confirmed Problem 793427897 Behavior concern (R46.89) Active confirmed Previously she was involved with [facility] after 2 ED visits (08/18/14 and 09/18/14) for btl-de-yerclj l behavior asscoicated with agitation. She has a h/o being bullied and taunted about her weight and calling me stupid (she receives SpEd). BEHAVIOR CONCERNS to be addressed (TE left with Behavioral Health for f/u call) Problem 84590555 Missed period (N92.6) Active confirmed Problem 14747981 Acute neutrophil ia (D72.828) Active confirmed Problem 49122439 Allergic rhiniti s, unspecified seasonality, unspecified trigger (J30.9) Active confirmed Problem 051056476 Gastroesophageal reflux disease, unspecified whether esophagitis present (K21.9) Active confirmed Problem 548108600 Iron deficiency anemia secondary to inadequate dietary iron intake (D50.8) Active confirmed Vital Signs Temperature 97.3 degrees Fahrenheit 06/26/2024 Respiratory Rate 18 /min 06/26/2024 Oximetry 95 % 06/26/2024 Blood pressure diastolic 67 mm Hg 06/26/2024 Height 63 in 06/26/2024 Blood pressure systolic 109 mm Hg 06/26/2024 Weight 288 lbs 06/26/2024 BMI 51.01 kg/m2 06/26/2024 Encounters Encounter Location Date Provider Diagnosis [address] [address] 03/31/2024 Rita Miles [address] [address] 04/21/2024 Rita Miles [address] [address] 05/19/2024 Rita Miles [address] [place] [address] 06/04/2024 Rita Miles [address] [address] 07/01/2024 Rita Miles [address] [place] [address] 07/02/2024 Rita Miles [address] [place] [address] 07/03/2024 Rita Miles [address] [place] [address] 07/14/2024 Rita Miles [address] [address] 07/30/2024 Rita Miles [address] [address] 01/19/2025 Rita Miles History of motion sickness Z87.[address] [address] 07/24/2024 Rita Miles Gastroesophageal ref lux disease, unspecified whether esophagitis present K21.9 and History of motion sickness Z87.[address] [address] 07/30/2024 Rita Miles [address] [address] 06/26/2024 Rita Miles Mild persistent asth ma without complication J45.[address] [address] 03/03/2024 Rita Miles Encounter for genera l adult medical examination with abnormal findings Z00.01 ; Irregular menses N92.6 and Dysmenorrhea N94.[address] [address] 05/21/2024 Rita Miles Acute cough R05.[address] [address] 07/21/2024 Rita Miles Prediabetes R73.03 ; Acute neutrophilia D72.828 and Mid back pain M54.[address] [address] 04/21/2024 Rita Miles Hypertrophy of breas t N62 ; History of motion sickness Z87.898 and Encounter for behavioral health screening Z13.30 Assessments Encounter Date Diagnosis (ICD Code) Assessment Notes Treatment Notes Treatment Clinical Notes Section Notes 03/03/2024 Encounter for general adult medical examination [...] Add GT Modifier if patient is at [facility] 06/26/2024 Mild persistent asthma without complication [...] unspecified whether esophagitis present (ICD-10 - K21.9) 01/19/2025 History of motion sickness (ICD-10 - Z87.898) 07/24/2024 History of motion sickness (ICD-10 - Z87.898) 07/21/2024 Mid back pain (ICD-10 - M54.9) Secondary to lifting at job Coding: Use UPDATED E&M code. Also applies when carrying over a previous visit. 04/21/2024 Encounter for behavioral health screening (ICD-10 - Z13.30) 03/03/2024 Dysmenorrhea (ICD-10 - N94.6) 03/05/2024 Other Body Mass Index: Care Instructions material was printed 08/05/2024 Other Visit START: Visit END: Plan Of Treatment Pending Test Test Name Order Date Comp Metabolic Panel w/eGFR 72425 2022 Hepatic Function Panel 87287 09/03/2022 C-Reactive Protein 4420 09/03/2022 CBC (Includes Diff/Plt) 6399 09/03/2022 TSH w/Free T4 rfx 62410 09/03/2022 ESR,Westergren 809 09/03/2022 Hemoglobin A1c 496 09/03/2022 H.Pylori Breath Test 26636 01/14/2024 AMYLASE 243 03/12/2022 Lipid Panel, Nonfasting w/o Triglyceride s 92733 09/03/2022 Next Appt Details Provider Name:Alisha gallo, 03/17/2025 10:20:00 AM, [address] [place] [address], [address], Insurance Providers Payer Name Payer Address Payer Phone Subscriber Number Group Number Insured Name Patient Relationship to Insured Coverage Start Date Coverage End Date Medicaid [place] [address] [phone] [id number] Marixa Bass Self - patient is the insured Medical (General) History Medical History History ICD Code obstructive sleep apnea obesity mild intermittent asthma vitamin d deficiency Behavior concern H/O out of control behavior requiring ED visits on 08/18/14 and 09/18/14. H/O being bullied and taunted about being fat and being stupid . [facility] involved in past EKG 09/27/20: essentially normal. [facility] 11/07/20: given albu terol, decadron; rapid strep neg-d/c home with supportive care instructions. Mild persistent asthma, unspecified whet her complicated J45.30 Admitted for 23 hrs to [facility] 02/06/23 for LLQ and supraumbilical pain. US showed R adenexal cyst, L ovary not visualized d/t overlying gas. Given IVF for hydration and tylenol/motrin PRN, d/c with OBGYN follow up Surgical History Surgery Date(Month/Year) T&A 03/2008
--- OUTSIDE RECORDS SUMMARY | 2025-01-30 19:46 | XMS_ITS | Patient Health Record ---
Author Organization [facility] Address [address] [facility] [id number], [place] [address] Care Team Providers Care Wheel Truing Machine Tender Name Role Phone Jasper Primary Care Provid er Unavailable Amber Wheat Unavailable [phone] ALLERGIES No Known Allergies REASON FOR REFERRAL [...] Date Coverage End Date ERIC [place] [address] [place] [id number] Marixa Bass Self - patient is the insured
--- OUTSIDE RECORDS SUMMARY | 2025-01-30 19:46 | XMS_ITS | Encounter Summary ---
Author Organization [facility] Address [address] [place] [address] Care Team Providers Care Geographic Information System Analyst Name Role Phone Unknown Primary Care Provider [phone] Pcp, No Primary Care Provider [facility], [facility] Primary Care Provider Encounter Details Date Type Department Care Team (Late st Contact Info) Description 12/08/2019 Lab Requisition Day [facility] [address] [place] [phone] Blayne Connell PA-C [address] [place] [address] Social History Tobacco Use Types Packs/Day Years [...] Detected Not Detected 12/10/2019 6:11 AM EDT [facility] Comment: A Not Detected (negative) test result for this test means that SARS-CoV-2 RNA was not present in the specimen above the limit of detection. A negative result does not rule out the possibility of COVID-19 and should not be used as the sole basis for treatment or patient management decisions. If COVID-19 is still suspected, based on exposure history together with other clinical findings, re-testing should be considered in consultation with public health authorities. Laboratory test results should always be considered in the context of clinical observations and epidemiological data in making a final diagnosis and patient management decisions. Please review the 'Fact Sheets' and FDA authorized labeling available for health care providers and patients using the following websites: https://www.clipsync.[employer]/home/Covid-19/HCP/ QuestLDT/fact-sheet https://www.[employer]/home/Covid-19/ Patients/QuestLDT/fact-sheet.html This test has been authorized by the FDA under an Emergency Use Authorization (EUA) for use by authorized laboratories. Due to the current public health emergency, [facility] is receiving a high volume of samples [...] including collection of an additional specimen. Methodology: Nucleic Acid Amplification Test (NAAT) includes PCR or TMA Additional information about COVID-19 can be found at the [facility] website: www.[employer]/Covid19 Test Performed at: [facility] [address] [address] Lemuel De La Torre M.D., Ph.D.,Director of Laboratories Microbiology Nasopharyngeal swab / Unknown 12/08/2019 10:34 AM EDT 12/08/2019 10:34 AM EDT Narrative PATRICE IVLLA - 12/10/2019 6:11 AM EDT Performed at [facility] License number [id number] Blayne Connell PA-C BODY FLUIDS AND STOOLS OR DERABLES Final Result PATRCIE VILLA documented in this encounter Visit Diagnoses Not on filedocumented in this encounter Care Teams Geographic Information System Analyst Relationship Specialty Start Date End Date Unknown Unknow Provider Address PCP - General 08/08/20 06/29/23 Pcp, No PCP - General General Medicine 06/30/23 09/27/23 Only, [facility] [address] [place] [address] PCP - General 09/28/23 documented as of this encounter
--- OUTSIDE RECORDS SUMMARY | 2025-01-30 19:47 | XMS_ITS | Clinical Summary ---
Author Organization [facility] Address [address] [place] [address] Phone Care Team Providers Care Alarm Installation Technician Name Role Phone Rita Miles Primary Care [...] 121 06/30/2024 8:15 AM EST Temperature 36.7 C (98 F) 06/30/2024 6:43 AM EST Respiratory Rate 40 [...] 5 Years) and At-Risk Patients (6 to 49 Years) (1 of 1 - PPSV23) 10/16/2009 04/29/2007, 07/28/2004, 04/19/2004, Additional history exists Meningococcal B Vaccine (1 of 2 - Standard) 2019 COVID-19 Vaccine ( - ) 02/02/2024 09/15/2021, 10/30/2020, 10/09/2020 Annual Well Child Visit (3-21 years old) 03/10/2024 12/15/2014, 12/10/2013 Cholesterol Screening (Lipid Panel) 03/10/2024 HIV Screening 03/10/2024 Hepatitis C Screening 03/10/2024 Social Influencers of Health Screening 03/10/2024 Depression Screening 06/03/2024 Cervical Cancer Screening: Pap Smear 10/16/2024 DTaP,Tdap,and Td Vaccines (7 - Td or Tdap) 12/15/2024 12/15/2014, 04/06/2008, 04/06/2008, Additional history exists Influenza Vaccine (#1) 2025 , 04/05/2022, 01/23/2021, Additional history exists Hepatitis B [...] currently active code status orders. Care Teams Alarm Installation Technician Relationship Specialty Start Date End Date Rita Miles PA [address] [place] [phone] PCP - General 04/28/24
--- OUTSIDE RECORDS SUMMARY | 2025-01-30 19:47 | XMS_ITS | Patient Health Record ---
Author Organization [facility] Address [address] [place] [address] Care Team Providers Care Labor Specialist Name Role Phone Phoebe Suh Primary Care Provider Allergies No Known Allergies Reason For Referral No Information Medications Medication SIG (Take, Route, Frequency, Duration) Notes Start Date End Date Status Cyproheptadine HCl 4 MG 1 tablet Orally Twice a day; Duration: 30 day(s) 05/23/2021 Active Ibuprofen 200 MG 2 tablets with food or milk as needed Orally Three times a day; Duration: 1 dose 03/11/2018 Not-Taking Ferrous Sulfate 07/03/2019 Not -Taking Social History CRAFFT Question Answer Notes During the PAST 12 MONTHS, d id you drink any alcohol (more than a few sips)? (Do not count sips of alcohol taken during family or bahai events.) No During the PAST 12 MONTHS, did you smoke any mar ijuana or hashish? No During the PAST 12 MONTHS, d id you use anything else to get high? ( anything else includes illegal drugs, zail-mfp-topsttu and prescription drugs, and things that you sniff or ramírez ) No Have you ever ridden in a [place] driven by someone (including yourself) who was high or had been using alcohol or drugs? No Problems Problem Type SNOMED Code ICD Code Onset Dates Problem Status W/U Status Risk Notes Problem Information temporarily unavailable Generalized anxiety disorder (F41.1) Active confirmed Problem Information temporarily unavailable Episodic tension-type headache, not intractable (G44.219) Active confirmed Problem Information temporarily unavailable Chronic tension-type headache, not intractable (G44.229) Active confirmed Problem Information temporarily unavailable Other chronic pain (G89.29) Active confirmed Problem Information temporarily unavailable Constipation, unspecified constipation type (K59.00) Active confirmed Problem Information temporarily unavailable Amenorrhea (N91.2) Active confirmed Problem Information temporarily unavailable Behavior concern (R46.89) Active confirmed Problem Information temporarily unavailable Stress (F43.9) Active confirmed Problem Information temporarily unavailable Migraine without aura and without status migrainosus, not intractable (G43.009) Active confirmed Problem Information temporarily unavailable Acute non intractable tension-type headache (G44.209) Active confirmed Problem Information temporarily unavailable Iron deficiency anemia secondary to inadequate dietary iron intake (D50.8) Active confirmed Problem Information temporarily unavailable Mild depression (F32.0) Active confirmed Problem Information temporarily unavailable Pediatric obesity due to excess calories without serious comorbidity, unspecified BMI (E66.09) Active confirmed Problem Information temporarily unavailable Oligomenorrhea, unspecified type (N91.5) Active confirmed Problem Information temporarily unavailable Parent-child conflict (Z62.820) Active confirmed Plan Of Treatment No Information Insurance Providers Payer Name Payer Address Payer Phone Subscriber Number Group Number Insured Name Patient Relationship to Insured Coverage Start Date Coverage End Date ERIC [place] [address] [place], [place] [id number] Marixa Bass Self - patient is the insured Medical (General) History Medical History History ICD Code LOC Anxiety JAREK Obesity Surgical History Surgery Date(Month/Year)
--- OUTSIDE RECORDS SUMMARY | 2025-01-30 19:47 | XMS_ITS | Encounter Summary ---
Author Organization [facility] Address [address] [place] [address] Care Team Providers Care Carrier Operator Name Role Phone Unknown Primary Care Provider [phone] Pcp, No Primary Care [facility] P[facility] Primary Care Provider Encounter Details Date Type Department Care Team (Late st Contact Info) Description 08/08/[address] [facility] [address] [facility] [address] [place] [phone] Juan Hall MD [address] [place] [address] Encounter for laboratory testing for COVID-19 virus [...] Dennys Prescott, Ph.D., Laboratory DirectorTests performed at [facility] Nasopharyngeal swab / Unknown 08/08/2020 9:32 AM EST 08/08/2020 9:32 AM EST Narrative CHRIS MCKENZIE - 08/09/2020 4:29 PM EST Performed by [facility] [address] [place] [address], CLIA# [id number] and [place] License# [id number] Juan Hall MD MICROBIOLOGY - GENERAL ORDER MAGY Final Result CHRIS MCKENZIE documented in this encounter Visit Diagnoses Diagnosis Encounter for laboratory testing for COVID-19 virus documented in this encounter Care Teams Carrier Operator Relationship Specialty Start Date End Date Unknown Unknow Provider Address PCP - General 08/08/20 06/29/23 Pcp, No PCP - General General Medicine 06/30/23 09/27/23 Only, [facility] [address] [place] [address] PCP - General 09/28/23 documented as of this encounter
--- OUTSIDE RECORDS SUMMARY | 2025-01-30 19:47 | XMS_ITS | Clinical Summary ---
Author Organization [facility] Address [address] [place] [address] Care Team Providers Care Storage Solutions Architect Name Role Phone Only, [facility] Allergies No known active [...] 92 10/21/2023 7:00 AM EDT Temperature 36.7 C (98 F) 09/28/2023 10:32 PM EDT Respiratory Rate 18 [...] 19+ 3-dose series) 10/16/2022 COVID-19 Vaccine ( - season) 2024 09/15/2021, 10/30/2020, 10/09/2020 Pap Smear (Ages 21-65) 10/16/2024 Influenza Vaccine 01/01/2025 02/26/2023, , 01/23/2021, Additional history exists Influenza Vaccine Discontinued 02/26/2023, , 01/23/2021, Additional history exists Pneumococcal Vaccine: Pediatric (0-5 Years) and At-Risk Patients (6 to 49 Years) Aged Out No longer eligible based on patient's age to complete this topic Insurance [facility] Care Teams Storage Solutions Architect Relationship Specialty Start Date End Date Only, [facility] [address] [place] [address] PCP - General 09/28/23
--- OUTSIDE RECORDS SUMMARY | 2025-01-30 19:47 | XMS_ITS ---
Author Name [facility] Organization Unknown Results Test Name/Text Value Interpretation Date Range Source HCG Preg Ur Ql Negative Normal 06/30/2024 - [facility] LACTIC ACID 1.8 mmol/L Normal 06/30/2024 - [facility] MH RSV RNA Resp Ql ROSANGELA+probe Negative Normal 06/30/2024 [facility] FLUBV RNA Nph Ql ROSANGELA+probe Negative Normal 06/30/2024 [facility] SARS-CoV-2 RNA Resp Ql ROSANGELA+probe Negative Normal 06/30/2024 [facility] FLUAV RNA Nph Ql ROSANGELA+probe Negative Normal 06/30/2024 [facility] BNP SerPl-mCnc 18.0 pcg/mL Normal 06/30/2024 0 - 100 CT _[facility] Troponin I SerPl HS-mCnc 2.0 ng/L Normal 06/30/2024 0 - 14 [facility] Macrocytes Bld Ql Smear Few Abnormal 06/30/2024 - [facility] Platelet Bld Ql Smear Platelets Appear Normal Normal 06/30/2024 - [facility] Hypochromia Bld Ql Smear 2+ Abnormal 06/30/2024 - [facility] Stomatocytes Bld Ql Smear 1+ Abnormal 06/30/2024 - [facility] Microcytes Bld Ql Smear Many Abnormal 06/30/2024 - [facility] Anisocytosis Bld Ql Smear 2+ Abnormal 06/30/2024 - [facility] Polychromasia Bld Ql Smear Few Abnormal 06/30/2024 - [facility] Giant Platelets Bld Ql Smear Few Abnormal 06/30/2024 - [facility] RBC morph Bld Reviewed Normal 06/30/2024 [facility] Elliptocytes Bld Ql Smear 2+ Abnormal 06/30/2024 - [facility] Creat SerPl-mCnc 0.7 mg/dL Normal 06/30/2024 0.5 - 1 CT _[facility] Glucose SerPl-mCnc 127.0 mg/dL Normal 06/30/2024 70 - 199 [facility] Anion Gap SerPl-sCnc 9.0 Normal 06/30/2024 5 - 14 [facility] eGFRcr SerPlBld CKD-EPI 2020 127.0 mL/min/1.73m2 Normal 06/30/2024 - [facility] BUN SerPl-mCnc 7.0 mg/dL Normal 06/30/2024 7 - 17 [facility] BUN/Creat SerPl 10.0 Below low normal 06/30/2024 12 - 2 0 [facility] Chloride SerPl-sCnc 101.0 mmol/L Normal 06/30/2024 98 - 1 07 [facility] Calcium SerPl-mCnc 9.0 mg/dL Normal 06/30/2024 8.4 - 10.2 [facility] Potassium SerPl-sCnc 3.4 mmol/L Below low normal 06/30/2024 3.5 - 5.1 [facility] Sodium SerPl-sCnc 138.0 mmol/L Normal 06/30/2024 135 - 14 5 [facility] CO2 SerPl-sCnc 28.0 mmol/L Normal 06/30/2024 24 - 32 CT _[facility] Monocytes/leuk NFr Bld Auto 6.3 % Normal 06/30/2024 2 - 12 [facility] Hgb Bld-mCnc 9.6 g/dL Below low normal 06/30/2024 12.5 - 16 [facility] Lymphocytes/leuk NFr Bld Auto 24.4 % Normal 06/30/2024 20 - 48 [facility] RBC # Bld Auto 5.06 M/mcL Normal 06/30/2024 4.2 - 5.4 CT_ [facility] Basophils # Bld Auto 0.07 K/mcL Normal 06/30/2024 0 - 0.2 [facility] Hct VFr Bld Auto 32.9 % Below low normal 06/30/2024 37 - 47 [facility] WBC # Bld Auto 14.1 K/mcL Above high normal 06/30/2024 4 - 1 0.5 [facility] Eosinophil/leuk NFr Bld Auto 7.4 % Above high normal 06/30/2024 0 - 6 [facility] PMV Bld Auto 10.3 FL Normal 06/30/2024 7.4 - 11.4 [facility] Neutrophils/leuk NFr Bld Auto 60.9 % Normal 06/30/2024 44 - 74 [facility] MCV RBC Auto 65.0 FL Below low normal 06/30/2024 78 - 100 [facility] Neutrophils # Bld Auto 8.55 K/mcL Above high normal 06/30/2024 1.8 - 7.8 [facility] MCHC RBC Auto-mCnc 29.2 g/dL Below low normal 06/30/2024 32 - 36 [facility] Monocytes # Bld Auto 0.89 K/mcL Above high normal 06/30/2024 0 - 0.8 [facility] Basophils/leuk NFr Bld Auto 0.5 % Normal 06/30/2024 0 - 2 [facility] Platelet # Bld Auto 442.0 K/mcL Normal 06/30/2024 150 - 4 50 [facility] Lymphocytes # Bld Auto 3.43 K/mcL Above high normal 06/30/2024 1 - 3.2 [facility] MCH RBC Qn Auto 19.0 pcg Below low normal 06/30/2024 25 - 3 3 [facility] RDW RBC Auto-Rto 22.4 % Above high normal 06/30/2024 12.1 - 16.2 [facility] Eosinophil # Bld Auto 1.04 K/mcL Above high normal 06/30/2024 0 - 0.5 [facility] FLUAV RNA Nph Ql ROSANGELA+probe Negative Normal 06/16/2024 [facility] RSV RNA Resp Ql ROSANGELA+probe Negative Normal 06/16/2024 [facility] SARS-CoV-2 RNA Resp Ql ROSANGELA+probe Negative Normal 06/16/2024 [facility] FLUBV RNA Nph Ql ROSANGELA+probe Negative Normal 06/16/2024 [facility] URINE Glucose, POC Negative Normal 10/21/2023 - [facility] URINE Bilirubin, POC Negative Normal 10/21/2023 - [facility] Nitrite, POC Negative Normal 10/21/2023 - [facility] Blood, POC Negative Normal 10/21/2023 - [facility] URINE Color, POC Yellow Normal 10/21/2023 [facility] URINE Ketones, POC Negative Normal 10/21/2023 - [facility] Spec [place], POC >1.029 Normal 10/21/2023 1.003 - 1.03 [facility] URINE pH, POC 6.0 Normal 10/21/2023 5 - 8 [facility] URINE Clarity, POC Clear Normal 10/21/2023 [facility] URINE Leuk Esterase, POC Negative Normal 10/21/2023 - [facility] Urobilinogen, URINE POC 0.2 mg/dL Normal 10/21/2023 0.2 - 1 [facility] URINE Protein, POC Negative Normal 10/21/2023 - [facility] History of Medication Use Medication Directions Dispensed [...] Sat06/30/24 at 0845, For 24 hours 5 025 active acetaminophen (TYLENOL) tablet 1,000 mg 1,000 mg, oral, Once, On Sat06/30/24 at 0742, For 1 dose 5 025 completed azithromycin (ZITHROMAX) tablet 500 mg 500 mg, oral, Once, On Sat06/30/24 at 0347, For 1 dose, Indication: Pneumonia, Community Acquired 5 025 completed cefTRIAXone (ROCEPHIN) 1 g in sterile [...] Sat06/30/24 at 0248, For 2 doses 5 aborted potassium chloride (KLOR-CON M10) CR tablet [...] time each day for 4 days. 5 025 active methylPREDNISolone sodium succ (SOLU-Medrol) injection 125 mg 125 mg, intramuscular, Once, On Sat06/16/24 at 0355, For 1 dose, Reconstitute each 125 mg vial with 2 mL sterile water for injection to a concentration of 62.5 mg/mL. 5 025 completed albuterol 5 mg/mL nebulizer solution Take 0.5 mL (2.5 mg total) by nebulization every 6 (six) hours if needed for wheezing. 4 025 active docusate sodium (COLACE) 100 MG capsule Take 1 capsule (100 mg total) by mouth 2 (two) times a day. 4 active famotidine (PEPCID) 40 MG tablet Take 1 tablet (40 mg total) by mouth nightly. 4 active ondansetronTake 1 tablet (Oral) every 4 hours PRN - Nausea for 5 [id number], disintegratingevery 4 [id number] e4mg 4 active norethindrone (AYGESTIN) tablet 5 [...] fluticasone (FLOVENT HFA) 110 mcg/actuation inhaler active Allergies Allergen Reaction Severity Comment Documented Date Source Statu s [place]ASONAL 12/10/2013 [place] [place] Problems Problem Status Onset Date Problem Type Date of Resolution Source Hypoxia active EncounterDiagnosisAct [facility] Asthma exacerbation active 2024-06-30 ProblemAct [facility] Hypokalemia active EncounterDiagnosisAct [facility] Viral infection, unspecified active 2023-06-16 ProblemAct [facility] Constipation, unspecified constipation type active EncounterDiagnosisAct [facility] Oligomenorrhea, unspecified type active EncounterDiagnosisAct [facility] Bloating active EncounterDiagnosisAct [facility] Abrasion of left cornea, initial encounter active EncounterDiagnosisAct [facility] Obstructive sleep apnea of child active 2015-10-06 ProblemAct [place] [place] Urinary tract infection active 2014-09-14 ProblemAct [place] [place] Behavior concern active 2014-09-18 ProblemAct [facility]om[facility] in pediatric patient active EncounterDiagnosisAct C [facility] [place] Abdominal pain active 2023-02-[address] [place] [facility] [place] Mild intermittent asthma active 2013-12-10 ProblemAct [facility] [place] Obesity active 2013-12-10 ProblemAct [facility] [place] Vitamin D deficiency active 2013-12-18 ProblemAct [facility] [place] Snoring active 2013-12-10 ProblemAct [place] [place] Immunizations Vaccine Date Source Lot Number Status HPV 9 07/21/2015 [facility] [place] [id number] completed Influenza, Live, Nasal 07/21/2015 [facility] [id number] co mpleted HPV Quadrivalent 12/15/2014 [facility] [id number] complete d Meningococcal Conjugate Sero groups ACWY (Polysaccharide)(MCV4P) 12/15/2014 [facility] [id number] complete d Tdap 12/15/2014 [facility] [place] [id number] completed HPV Quadrivalent 12/10/2013 [facility] [id number] complete d Influenza Seasonal, Injectable 03/13/2012 [facility] completed Influenza Seasonal, Injectable 09/20/2010 [facility] completed Hep A, Unspecified 05/23/2009 [facility] comple nayana Influenza Seasonal, Injectable 05/23/2009 [facility] completed Influenza Seasonal, Injectable 04/20/2009 [facility] completed DTaP 04/06/2008 [facility] completed DTaP / IPV 04/06/2008 [facility] completed Hep A, Unspecified 04/06/2008 [facility] nayana Influenza Seasonal, Injectable 04/06/2008 [facility] [...] Unspecified 01/25/2004 [facility] complete d IPV 01/25/2004 [facility] completed Pneumococcal Conjugate 7-Valent 01/25/2004 [facility] [place] completed Hep B, Unspecified 2003 [facility] comple nayana Encounters Encounter Type Encounter Reason Primary Diagnosis Location Date Ambulatory [facility] 10/20/19 Ambulatory Acute pharyngitis Acute pharyngitis [facility] 10/19/2024 Emergency trouble breathing Unspecified as thma with (acute) exacerbation [facility] 06/30/2024 Emergency sob Unspecified asth ma with (acute) exacerbation [facility] 06/16/2024 Ambulatory Oligomenorrhea, unspecified Oligomenorrhea, unspecified [facility] 10/21/2023 Emergency Generalized abdominal pain Generalized abdominal pain [facility] 09/28[facility]2023 Emergency Generalized abdominal pain Generalized abdominal pain [facility] 06/30/2023 Ambulatory [facility] 06/16/2023 Emergency Urinary tract infection, site not specified Urinary tract infection, site not specified [facility] 04/21/2023 Emergency Urinary tract infection, site not specified Urinary tract infection, site not specified [facility] 04/08/2023 Ambulatory Unspecified abdominal pain Unspecified abdominal pain [facility] [place] [place] 02/06/2023 Emergency Excessive and frequent menstruation with regular cycle Excessive and frequent menstruation with regular cycle [facility] 01/21/2023 Emergency Crushing injury of unspecified hand, initial encounter [facility] 11/06/2022 Ambulatory [facility] 05/23/2022 Care Team Organization Name Specialty Phone Email Start Date End Da te [facility] 10/19/2024 [facility] 10/07/2024 [facility] CHAD Primary Care 06/24/2024 [facility] RITA BONILLA Primary Care 06/16/2024 [facility] Rita HSU Primary Care 02/04/2024 [facility] ([facility] 10/01/2023 [facility] COMMUNITY ONLY Primary Care 09/29/2023 [facility] 09/18/2023 [facility] 09/18/2023 [facility] NO PCP Primary Care 06/30/2023 [facility] [place] [place]/23/2023 [facility] [place] [place] EDDIE PETERSEN Primary Care 06/23/2023 [facility] NO PROVIDER Primary Care 06/23/2023 [facility] Not Disclosed Primary Care 06/23/2023 [facility] Not Disclosed Primary Care 06/23/2023 [facility] 05/12/2023 12/06/2024 [facility] 05/12/2023 05/12/2023 [facility] 04/04/2023 [facility] - Kandy MEDRANO Primary Care 03/01/2023 [facility] 02/22/2023 024 [place] 11/07/2022 08/19/2024 [facility] 11/06/2022 11/06/2022 [facility] - Kandy CRUZ Primary Care 06/25/2022 [facility] EDDIE PETERSEN Primary Care 05/25/2022 [facility] 04/04/2022
--- OUTSIDE RECORDS SUMMARY | 2025-01-30 19:47 | XMS_ITS | Clinical Summary ---
Author Organization [facility] Address [address] [place] [address] Care Team Providers Care Foxing Closer Name Role Phone Unavailable Primary Care Provider Unavailabl e Allergies No known active allergies Medications No known medications Social History Tobacco Use Types Packs/Day Years Used Date Smoking Tobacco: Never Smokeless Tobacco: Never Alcohol Use Standard Drinks/Week Comments No 0 (1 standard drink = 0.6 oz pur e alcohol) Sex and Gender Information Value Date Recorded Sex Assigned at Female 12/12/2018 5:45 PM EDT Gender Identity Not on file Sexual Orientation Not on file Last Filed Vital Signs Vital Sign Reading Time Taken Comments Blood Pressure 111/77 12/12/2018 4:15 PM EDT Pulse 97 12/12/2018 4:15 PM EDT Temperature 36.7 C (98.1 F) 12/12/2018 4:15 PM EDT Respiratory Rate 14 12/12/2018 4:15 PM EDT Oxygen Saturation 100% 12/12/2018 4:15 PM EDT Inhaled Oxygen Concentration - - Weight 98.9 kg (218 lb) 12/12/2018 4:15 PM EDT Height 162.6 cm (5' 4 ) 12/12/2018 4:15 PM EDT Body Mass Index 37.42 12/12/2018 4:15 PM EDT Plan of Treatment Health Maintenance Due Date Last Done Comments Hepatitis B Vaccines (1 of 3 - 3-dose series) 2003 Hepatitis C Screening 2003 COVID-19 Vaccine (#1) 04/18/2004 Depression Screening 2015 Gonorrhea and Chlamydia Screening 10/16/2016 Preventative Health Evaluation 10/16/2021 DTap / Tdap / Td (1 - Tdap) 10/16/2022 Cervical Cancer Screening (P ap Smear) 10/16/2024 Influenza Vaccine (#1) 2025 Pneumococcal Vaccine Aged Out No long er eligible based on patient's age to complete this topic RSV Ped < 20 months Aged Out No longe r eligible based on patient's age to complete this topic
--- NOTE | 2025-01-30 20:13 | MHC.EDTECH ---
T/w and triage tech attempted to draw labs x2 and unsuccessful. Paco VORA aware.
--- NOTE | 2025-01-30 20:42 | ED.GENADULT ---
[facility] - General Adult General Chief complaint: Abdominal Pain Stated complaint: left lower abd pain Time Seen by Provider: 01/30/25 20:24 Source: patient Mode of arrival: ambulatory Limitations: no limitations History of Present Illness ED Provider: Dr. Bowling [facility] narrative: This is a 19-year-old female history of left ovarian cyst presenting to ER today for evaluation of left lower quadrant suprapubic pain. Patient stated that this started on Saturday. Patient took test at home which was negative. Denies any dysuria. Denies any vaginal bleeding denies any vaginal discharge. Denies any nausea vomiting. Related Data Previous Rx's ?Medication ?Instructions ?Recorded albuterol sulfate 90 mcg/actuation 2 puff inhalation Q4-6H PRN 05/25/24 aerosol inhaler shortness of breath or wheezing #8.5 grams prednisone 50 mg tablet 50 mg PO DAILY #5 tabs 05/25/24 albuterol sulfate 90 mcg/actuation 2 inh inhalation Q4-6H PRN 06/04/24 breath activated powder inhaler shortness of breath or wheezing #1 ea prednisone 20 mg tablet 20 mg PO BID #10 tabs 06/04/24 doxycycline hyclate 100 mg tablet 100 mg PO Q12H 5 days #10 tabs 06/28/24 prednisone 20 mg tablet 60 mg (3 x 20 mg) PO DAILY 5 days 06/28/24 #15 tabs ketorolac 10 mg tablet 10 mg PO Q8H PRN pain #10 tabs 08/07/24 metoclopramide HCl 5 mg tablet 5 mg PO DAILY PRN nausea and 08/07/24 (Reglan) vomiting #10 tabs sucralfate 1 gram tablet 1 g PO TID #21 tabs 10/08/24 cephalexin 500 mg capsule 500 mg PO Q8H 7 days #21 caps 01/30/25 Allergies Allergy/AdvReac Type Severity Reaction Status Date / Time No Known Allergies Allergy Verified 01/30/25 19:26 Review of Systems Review of Systems: Pertinent review of systems as mentioned in [facility]. All other system otherwise negative. [facility], [facility] Past Medical History [facility], [facility] Narrative: Medical history as mentioned in [facility] Medical History Asthma Social History Social History Alcohol intake: never Smoked in Last 30 Days: No Use of substances other than those prescribed or required for medical reasons: No Advance Directives: No Advance Directives Information Provided: No Do you have a plan to hurt others: No Plan Physical Exam ED Exam Exam: General: Pleasant, no distress, interacting appropriately Head: Normacephalic, atraumatic Gastrointestinal: Soft, non distended, left suprapubic pain on palpation Neurological: Awake and alert, no facial droop noted Skin: Warm and dry Psychiatric: Appropriate mood and thoughts Vital Signs: Vital Signs - 24 hr 01/30/25 19:25 01/30/25 21:58 Temperature 98.9 F 98.5 F Pulse Rate 105 H 98 Respiratory Rate 16 16 Blood Pressure 133/74 112/63 Pulse Oximetry 95 97 Oxygen Delivery Method Room Air Room Air BMI result Body Mass Index 50.9 Medications Administered Discontinued Medications Generic Name Dose Route Start Last Admin Trade Name Freq PRN Reason Stop Dose Admin Acetaminophen 975 mg 01/30/25 20:47 01/30/25 20:55 Acetaminophen 325 Mg Tablet PO 01/30/25 20:48 975 mg ONCE ONE Administration Cephalexin HCl 500 mg 01/30/25 22:28 01/30/25 22:34 Cephalexin 500 Mg Capsule PO 01/30/25 22:29 500 mg ONCE ONE Administration Medical Decision Making Medical Decision Making [facility] Narrative: 19-year-old female history of left ovarian cyst presented hospital today for a left suprapubic pain. We did order lab work however patient does not want lab work currently. Due to difficult IV access. Urine HCG we will be obtained. We will plan to obtain pelvic ultrasound rule out ovarian torsion. Patient appears to be well on exam however she does have point tenderness on the left suprapubic area. UA will be obtained to rule out UTI Patient's ultrasound did not show any signs of ovarian torsion. Incidental finding of cystic structure in the endometrium and cyst. This was communicated with the patient. 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 Patient appears to have a UTI based on the UA. We will plan to discharge patient with a course of Keflex. Differential Diagnosis Differential Diagnoses: The differential diagnosis associated with the presentation includes UTI, left ovarian torsion, Lab Data [facility] Lab Attestation statement: I reviewed the patient's lab results. Labs: Lab Results 01/30/25 Range/Units 20:57 Urine Color Yellow Urine Appearance Clear Urine pH 6.0 (5.0-9.0) Ur Specific [place] >= 1.030 H (1.005-1.025) Urine Protein Trace (Neg-Trace) mg/dL Urine Glucose (UA) Negative (Negative) mg/dL Urine Ketones Trace (Negative) mg/dL Urine Blood Negative (Negative) Urine Nitrite Negative (Negative) Ur Leukocyte Esterase Large (3+) H (Negative) Urine RBC 0-2 (0-2) /HPF Urine WBC 6-10 (0-5) /HPF Ur Squamous Epith Cells 6-10 (0-2) /HPF Urine Bacteria Trace (None Seen) Hyaline Casts 0-2 (0-2) /LPF Urine Test NEGATIVE (NEGATIVE) Discharge Plan Discharge Clinical Impression: UTI (urinary tract infection) Qualifiers: Urinary tract infection type: site unspecified Hematuria presence: without hematuria Qualified Code(s): N39.0 - Urinary tract infection, site not specified Patient Disposition: Home, Self-Care Prescriptions: New cephalexin 500 mg capsule 500 mg PO Q8H 7 Days Qty: 21 0RF No Action prednisone 50 mg tablet 50 mg PO DAILY Qty: 5 0RF albuterol sulfate 90 mcg/actuation HFA aerosol inhaler 2 puff inhalation Q4-6H PRN (Reason: shortness of breath or wheezing) Qty: 8.5 0RF prednisone 20 mg tablet 20 mg PO BID Qty: 10 0RF albuterol sulfate 90 mcg/actuation aerosol powdr breath activated 2 inh inhalation Q4-6H PRN (Reason: shortness of breath or wheezing) Qty: 1 0RF prednisone 20 mg tablet 60 mg PO DAILY 5 Days Qty: 15 0RF doxycycline hyclate 100 mg tablet 100 mg PO Q12H 5 Days Qty: 10 0RF ketorolac 10 mg tablet 10 mg PO Q8H PRN (Reason: pain) Qty: 10 0RF metoclopramide HCl [Reglan] 5 mg tablet 5 mg PO DAILY PRN (Reason: nausea and vomiting) Qty: 10 0RF Rx Instructions: Take together with ketorolac p.r.n. migraine headache sucralfate 1 gram tablet 1 g PO TID Qty: 21 0RF Rx Instructions: take 30 minutes prior to eating Print Language: Hebrew
--- NOTE | 2025-01-30 20:50 | PC.NURSE ---
provider Tracey Bowling at the bedside while log data technician attempting to draw blood, provider stated to hold off on blood work pending new orders
[2025-01-30 21:04] LABS: Appearance Urine Clear; Glucose Urine UA Negative (Negative); PH 6.0 (5.0-9.0); Specific Gravity - Urine >= 1.030 (1.005-1.025); UMIC TRIGGER UACC YES
[2025-01-30 21:17] LABS: UACC Culture Trigger YES
[2025-01-30 21:58] VITALS: BP 112/63; PULSE 98; RESP 16; TEMP 36.9; O2SAT 97
[2025-01-30 22:52] LABS: UPreg QC Valid YES
[2025-01-30 23:06] VITALS: BP 112/63; PULSE 98; RESP 16; TEMP 36.9; O2SAT 97
== END 2025-01-30 23:07 | disposition home or self-care (01) ==
PROVIDERS: Physician Assistant; Emergency Provider Student in an Organized Health Care Education/Training Program
DX: N39.0 Urinary tract infection, site not specified (principal); R10.32 Left lower quadrant pain; R10.2 Pelvic and perineal pain
CPT/HCPCS: 76830; 76856; 81001; 81025; 87086; 93975; 99284

== ENCOUNTER → 2025-01-30 20:47 | Outpatient (BNV) | payer MEDICAID, SELFPAY | PROVIDERS: Emergency Provider Student in an Organized Health Care Education/Training Program; Visit Provider Radiology Diagnostic Radiology | DX: N83.201 Unspecified ovarian cyst, right side (principal) | CPT/HCPCS: 76830; 76856; 93975 ==